=== PATIENT | female | born 1960 | race Caucasian/White ===

== ENCOUNTER 2017-02-24 15:53 | Emergency (ER) | payer MEDICARE ==
[2017-02-24 16:01] VITALS: BP 146/70
--- NOTE | 2017-02-24 16:32 | ED Physician Documentation ---
History of Present Illness - Stated complaint Stated Complaint: SOA - Chief complaint Chief Complaint: Resp - History obtained from History obtained from: Patient - History of Present Illness Timing: Chronic Pain level max: 0 Pain level now: 0 - Additonal information Additional information: states running out of her O2 at home and doesn't know how to obtain more. sees her PCP (Dr. Gerard) next week. Patient has no other complaints at this time Review of Systems Constitutional: denies: Fever, Chills Cardiac: denies: Chest pain / pressure Respiratory: denies: Cough, Hemoptysis GI: denies: Abdominal Pain, Nausea, Vomiting, Diarrhea Skin: denies: Rash Musculoskeletal: denies: Neck pain, Back pain Neurologic: denies: Headache PD PAST MEDICAL HISTORY - Past Medical History Past Medical History: Yes Cardiovascular: High cholesterol Respiratory: COPD, Emphysema Neuro: None Endocrine/Autoimmune: Type 2 diabetes : None HEENT: None Psych: Anxiety Musculoskeletal: Osteoarthritis, Scoliosis, Chronic back pain, Other Derm: Psoriasis - Past Surgical History Past Surgical History: Yes Ortho: 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 surgery /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: Hysterectomy - Present Medications Home Medications: Ambulatory Orders Medication Instructions Recorded Confirmed Atorvastatin Calcium 40 mg PO ONCEDAILY 07/24/13 02/24/17 Cyclobenzaprine [Flexeril] 10 mg PO TID 07/24/13 02/24/17 Gemfibrozil 600 mg PO BID 07/24/13 02/24/17 Hydrocodone/Acetaminophen [Vicodin 1 each PO TID 07/24/13 02/24/17 Hp 10-300 mg Tablet] Insulin Aspart [Novolog] 18 units TIDWM 07/24/13 02/24/17 Insulin Glargine [Lantus] 70 units HS 07/24/13 02/24/17 Lisinopril 10 mg PO ONCEDAILY 07/24/13 02/24/17 Morphine Sulfate [Ms Contin] 60 mg PO TID 07/24/13 02/24/17 [place]-3 Fatty Acids/Fish Oil [Fish 1 each PO TID 07/24/13 07/21/16 Oil 1,000 mg Capsule] Nabumetone 1,000 mg PO BID 05/13/15 02/24/17 metFORMIN [Glucophage] 1,000 mg PO BID 05/13/15 02/24/17 Sertraline [Zoloft] 50 mg PO QPM 02/29/16 02/24/17 Mupirocin 1 applic TP DAILY #15 oint...g. 07/21/16 02/24/17 Acitretin [Soriatane] 25 mg PO DAILY 02/24/17 02/24/17 Fluticasone/Salmeterol [Advair 1 puffs PO DAILY 02/24/17 02/24/17 250-50 Diskus] Insulin Aspart [NovoLOG] 20 units SQ DAILY 02/24/17 02/24/17 Insulin Glargine [Lantus Solostar] 70 units SQ DAILY 02/24/17 02/24/17 - Allergies Allergies/Adverse Reactions: Allergies Allergy/AdvReac Type Severity Reaction Status Date / Time methadone [Methadone] Allergy Severe increased Verified 02/24/17 16:00 heart rate adhesive tape Allergy Unknown Verified 02/24/17 16:00 - Social History Does the pt smoke?: Yes Smoking Status: Current some day smoker Does the pt drink ETOH?: No Does the pt have substance abuse?: No - Immunizations Immunizations: TDAP current <10years PD ED PE NORMAL - Vitals Vital signs reviewed: Yes - General General: Alert and oriented X 3, No acute distress - HEENT HEENT: Moist mucous membranes - Neck Neck: Supple, no meningeal sign - Cardiac Cardiac: RRR - Respiratory Respiratory: No respiratory distress, Other (Mild wheeze bilaterally) - Abdomen Abdomen: Soft, Non tender - Derm Derm: Warm and dry - Extremities Extremities: No calf tenderness / cord - Neuro Neuro: Alert and oriented X 3 - Psych Psych: Normal mood, Normal affect Results - Vitals Vitals: Vital Signs - 24 hr 02/24/17 02/24/17 02/24/17 15:58 17:00 17:49 Temperature 36.8 C Heart Rate 78 Respiratory 18 Rate Blood Pressure 146/70 H O2 Saturation 90 L 89 L 97 Oxygen O2 Source Room air Oxygen Flow Rate 2 PD MEDICAL DECISION MAKING - ED course Complexity details: considered differential, d/w patient ED course: Patient with no acute emergency medical condition at this time. Respiratory therapy, Atilio, was consulted and will help the patient obtain oxygen for home. She apparently has had proper pulmonary testing done approximately 1 year ago and does qualify for home O2. Patient counseled regarding signs and symptoms for which I believe and urgent re-evaluation would be necessary. Patient with good understanding of and agreement to plan and is comfortable going home at this time This document was made in part using voice recognition software. While efforts are made to proofread this document, sound alike and grammatical errors may occur. Departure - Departure Disposition: 01 Home, Self Care Clinical Impression: Hypoxia COPD (chronic obstructive pulmonary disease) Qualifiers: COPD type: unspecified COPD Qualified Code(s): J44.9 - Chronic obstructive pulmonary disease, unspecified Condition: Good Instructions: COPD Follow-Up: Yaw Gerard MD [Primary Care Provider] - Within 1 week Comments: Call [facility] and they can help you with your concentrator. Return if you worsen. Discharge Date/Time: 02/24/17 17:49
== END 2017-02-24 17:49 | disposition home or self-care (01) ==
LOC: ED 15:53
DX: J44.9 Chronic obstructive pulmonary disease, unspecified (principal); R09.02 Hypoxemia; F17.200 Nicotine dependence, unspecified, uncomplicated; E11.9 Type 2 diabetes mellitus without complications; Z79.4 Long term (current) use of insulin
CPT/HCPCS: 99282; 99283

== ENCOUNTER 2017-03-16 13:20 | Outpatient (CLI) | payer MEDICARE ==
[2017-03-16] MEDS ORDERED: ALBUTEROL NEB 2.5 MG/3 ML INH ONE (13:33)
== END 2017-03-16 13:21 | disposition home or self-care (01) ==
LOC: RT 13:20
PROVIDERS: ATTEND Internal Medicine
DX: J43.9 Emphysema, unspecified (principal)
CPT/HCPCS: 93005; 94060; J7613

== ENCOUNTER 2017-09-28 14:09 | Outpatient (CLI) | payer MEDICARE | END 2017-09-28 14:10 | disposition home or self-care (01) | LOC: DI 14:09 | PROVIDERS: ATTEND Internal Medicine | DX: Z53.9 Procedure and treatment not carried out, unspecified reason (principal) ==

== ENCOUNTER 2018-11-10 14:20 | Outpatient (CLI) | payer MEDICARE ==
--- NOTE | 2018-11-10 15:59 | XRAY Report ---
Reason: CHRONIC OBSTRUCTIVE PULMONARY DISEASE WITH EXACERB Procedure Date: 11/10/2018 Accession Number: [id number] / [id number] Procedure: XR - Chest 2 View X-Ray CPT Code: 98599 FULL RESULT: EXAM: CHEST RADIOGRAPHY EXAM DATE: 11/10/2018 03:37 PM. CLINICAL HISTORY: CHRONIC OBSTRUCTIVE PULMONARY DISEASE WITH EXACERB. COMPARISON: CHEST 2 VIEW PA/LAT 04/10/2016 1:22 PM. TECHNIQUE: 2 views. FINDINGS: Lungs/Pleura: There is bilateral interstitial prominence. No pleural effusion or pneumothorax. No consolidative process. Trachea is midline. Mediastinum: Heart size is normal. There is moderate atherosclerotic calcification of the aorta. Other: None. IMPRESSION: 1. No significant change. Bilateral interstitial prominence consistent with airways thickening or mild interstitial edema without change. No consolidative pneumonia. RADIA
== END 2018-11-10 14:21 | disposition home or self-care (01) ==
LOC: DI 14:20
PROVIDERS: ATTEND Nurse Practitioner Family
DX: J44.1 Chronic obstructive pulmonary disease with (acute) exacerbation (principal)
CPT/HCPCS: 71046

== ENCOUNTER 2018-11-20 15:44 | Outpatient (CLI) | payer MEDICARE | END 2018-11-20 15:45 | disposition critical access hospital (66) | LOC: EMS 15:44 | PROVIDERS: ATTEND Surgery | DX: R06.00 Dyspnea, unspecified (principal) | CPT/HCPCS: A0425; A0429 ==

== ENCOUNTER 2018-11-20 16:10 | Emergency (ER) | payer MEDICARE ==
[2018-11-20] MEDS ORDERED: AMOX/CLAV 875 MG/125 MG TABLET PO STA (17:10)
--- NOTE | 2018-11-20 17:13 | ED Physician Documentation ---
PD HPI URI - Stated complaint Stated Complaint: COUGH - Chief complaint Chief Complaint: Resp - History obtained from History obtained from: Patient - History of Present Illness Timing - onset: Other (She is been sick for about 2 weeks with slight shortness of breath and nasal congestion. She was seen in the office and a chest x-ray was done without acute disease and started on steroids which made her feel funny so she stopped them. Her main complaint at this point is sinus pressure or nasal drainage. No fevers.) Review of Systems Constitutional: reports: Fatigue. 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 : None HEENT: None Psych: Depression, Anxiety Musculoskeletal: Osteoarthritis, Scoliosis, Chronic back pain Derm: Psoriasis - Past Surgical History Past Surgical History: Yes Ortho: 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: Hysterectomy, Oophrectomy - Present Medications Home Medications: Ambulatory Orders Medication Instructions Recorded Confirmed Atorvastatin Calcium 20 mg PO ONCEDAILY 07/24/13 11/20/18 Cyclobenzaprine [Flexeril] 10 mg PO TID 07/24/13 11/20/18 Gemfibrozil 600 mg PO BID 07/24/13 11/20/18 Insulin Aspart [Novolog] 18 - 26 units PRN 07/24/13 07/27/18 Lisinopril 10 mg PO ONCEDAILY 07/24/13 11/20/18 [place]-3 Fatty Acids/Fish Oil [Fish 1 each PO TID 07/24/13 11/20/18 Oil 1,000 mg Capsule] Nabumetone 1,000 mg PO BID 05/13/15 11/20/18 Sertraline [Zoloft] 25 mg PO DAILY 02/29/16 11/20/18 Insulin Glargine [Lantus Solostar] 80 units SQ DAILY 02/24/17 11/20/18 Albuterol Sulf [Ventolin Hfa 1 - 2 puffs INH BID PRN 04/27/18 11/20/18 Inhaler] Ascorbic Acid [Vitamin C] 1,000 mg PO TID 04/27/18 11/20/18 Cholecalciferol (Vitamin D3) 1,000 units PO TID 04/27/18 11/20/18 [Vitamin D3] L-Lysine 500 mg PO BID 04/27/18 07/27/18 Magnesium Oxide [Magnesium] 500 mg PO BID 04/27/18 07/27/18 Metformin HCl [Glucophage] 1,000 mg PO BID 04/27/18 11/20/18 Morphine Sulfate [Ms Contin] 60 mg PO TID 04/27/18 11/20/18 Tumeric 1,000 mg PO DAILY 04/27/18 11/20/18 Vitamin E (Dl,Tocopheryl Acet) 400 units PO DAILY 04/27/18 11/20/18 [Vitamin E] Hydrocodone/Acetaminophen 1 each PO TID 07/27/18 11/20/18 [Hydrocodon-Acetaminophn 10-325] Acitretin [Soriatane] 25 mg DAILY 11/20/18 11/20/18 Amox/Clav 875/125 [Augmentin] 1 each PO Q12H #20 tablet 11/20/18 Mometasone Furoate [Nasonex] 1 spray NS BID #1 spray.pump 11/20/18 - Allergies Allergies/Adverse Reactions: Allergies Allergy/AdvReac Type Severity Reaction Status Date / Time methadone [Methadone] Allergy Severe increased Verified 11/20/18 16:24 heart rate adhesive tape Allergy Unknown Verified 11/20/18 16:24 - Social History Does the pt smoke?: Yes Smoking Status: Current some day smoker Does the pt drink ETOH?: No Does the pt have substance abuse?: No - Immunizations Immunizations are current?: Yes Immunizations: TDAP current <10years - POLST Patient has POLST: No PD ED PE NORMAL - Vitals Vital signs reviewed: Yes - General General: Alert and oriented X 3, No acute distress - HEENT HEENT: Other (Profuse clear rhinorrhea with mild maxillary sinus tenderness. Oropharynx normal. Lungs clear.) - Cardiac Cardiac: RRR, No murmur - Respiratory Respiratory: No respiratory distress, Clear bilaterally - Abdomen Abdomen: Non tender - Extremities Extremities: No edema, No calf tenderness / cord - Neuro Neuro: Alert and oriented X 3, Normal speech Results - Vitals Vitals: Vital Signs - 24 hr 11/20/18 16:19 Temperature 36.2 C L Heart Rate 102 H Respiratory 18 Rate Blood Pressure 169/65 H O2 Saturation 96 Oxygen O2 Source Room air Departure - Departure Disposition: 01 Home, Self Care Clinical Impression: Sinusitis Qualifiers: Sinusitis location: maxillary Chronicity: acute Recurrence: non-recurrent Qualified Code(s): J01.00 - Acute maxillary sinusitis, unspecified Diabetes Qualifiers: Diabetes mellitus type: type 2 Diabetes mellitus assisted insulin use: with assisted use Diabetes mellitus complication status: without complication Qualified Code(s): E11.9 - Type 2 diabetes mellitus without complications; 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 In the interim, return anytime if worse or if new symptoms develop. Your blood pressure was elevated today on check into the emergency department. This does not mean that you have hypertension, it is a common phenomenon to come to the emergency department and have elevated blood pressure. I recommend that you see your primary care physician within the week to have it rechecked when you are feeling better.
[2018-11-20 17:20] VITALS: BP 178/83
== END 2018-11-20 17:44 | disposition home or self-care (01) ==
LOC: EDUNIT# → ED 16:10
DX: J01.00 Acute maxillary sinusitis, unspecified (principal); R03.0 Elevated blood-pressure reading, without diagnosis of hypertension; E11.42 Type 2 diabetes mellitus with diabetic polyneuropathy; E78.00 Pure hypercholesterolemia, unspecified; Z79.4 Long term (current) use of insulin; F17.200 Nicotine dependence, unspecified, uncomplicated
CPT/HCPCS: 99283; A9270

== ENCOUNTER 2019-12-04 14:42 | Outpatient (CLI) | payer MEDICARE ==
--- NOTE | 2019-12-05 14:54 | XRAY Report ---
Reason: PAIN IN RIGHT SHOULDER, PARESTHESIA OF UPPER LIMB Procedure Date: 12/04/2019 Accession Number: [id number] / [id number] Procedure: XR - Shoulder 3 View RT CPT Code: Final Report FULL RESULT: EXAM: RIGHT SHOULDER RADIOGRAPHY EXAM DATE: 12/04/2019 03:29 PM. CLINICAL HISTORY: PAIN IN RIGHT SHOULDER, PARESTHESIA OF UPPER LIMB. COMPARISON: None. TECHNIQUE: 3 views. FINDINGS: Bones: Normal. No fracture or bone lesion. Joints: AC joint hypertrophy. Glenohumeral osteophyte without joint space narrowing. Soft tissues: The visualized hemithorax is unremarkable. No soft tissue swelling. IMPRESSION: Mild DJD RADIA
--- NOTE | 2019-12-05 14:54 | XRAY Report ---
Reason: PAIN IN RIGHT SHOULDER, PARESTHESIA OF UPPER LIMB Procedure Date: 12/04/2019 Accession Number: [id number] / [id number] Procedure: XR - Cervical Spine 2 View CPT Code: Final Report FULL RESULT: EXAM: CERVICAL SPINE RADIOGRAPHY EXAM DATE: 12/04/2019 03:30 PM. CLINICAL HISTORY: PAIN IN RIGHT SHOULDER, PARESTHESIA OF UPPER LIMB. COMPARISONS: None. TECHNIQUE: 3 views. FINDINGS: Patient is in flexion Alignment: Grade 1 anterolisthesis C3 on C4. Bones: The cervical vertebral bodies and posterior elements are well visualized from the skull base through C6-C7 No fractures or bone lesions. Disks: C3-C4, C4-C5, C5-C6, C6-C7 disk space narrowing Facets: Facet arthropathy mid to lower cervical spine. Soft Tissues: Normal. No prevertebral soft tissue swelling. The visualized lung apices are clear. IMPRESSION: 1. Grade 1 anterolisthesis of C3 on C4. 2. Moderate DJD. Visualization is through C6-C7 RADIA
== END 2019-12-04 14:43 | disposition home or self-care (01) ==
LOC: DI 14:42
PROVIDERS: ATTEND Nurse Practitioner Family
DX: M19.011 Primary osteoarthritis, right shoulder (principal); M50.31 Other cervical disc degeneration, high cervical region; M47.812 Spondylosis without myelopathy or radiculopathy, cervical region; M43.12 Spondylolisthesis, cervical region; L40.0 Psoriasis vulgaris
CPT/HCPCS: 36415; 72040; 80053; 83735; 84550; 85027

== ENCOUNTER 2019-12-04 15:27 | Outpatient (CLI) | payer MEDICARE ==
[2019-12-04 15:46] LABS: HGB - HEMOGLOBIN 12.5 g/dL (12.0-16.0); MEAN CORPUSCULAR HGB CONC 32.4 g/dL (32.0-36.0); MEAN CORPUSCULAR VOLUME 92.6 fL (81.0-99.0); MEAN PLATELET VOLUME 9.3 fL (7.9-10.8); RED BLOOD COUNT 4.17 10^6/uL (4.20-5.40); RED CELL DISTRIBUTION WIDTH 13.1 % (12.0-15.0); WHITE BLOOD COUNT 7.3 x10^3/uL (4.8-10.8)
[2019-12-04 15:58] LABS: ALBUMIN 3.8 g/dL (3.2-5.5); BILIRUBIN,TOTAL 0.9 mg/dL (0.2-1.0); CALCIUM 9.3 mg/dL (8.5-10.3); CREATININE 0.7 mg/dL (0.4-1.0); MAGNESIUM 1.8 mg/dL (1.7-2.8); TOTAL PROTEIN 7.6 g/dL (6.7-8.2); URIC ACID 6.4 mg/dL (2.6-7.2)
== END 2019-12-04 15:28 | disposition home or self-care (01) ==
LOC: LAB 15:27
PROVIDERS: ATTEND Dermatology
DX: L40.0 Psoriasis vulgaris (principal)
CPT/HCPCS: 36415; 80053; 83735; 84550; 85027

== ENCOUNTER 2020-03-13 17:10 | Outpatient (CLI) | payer MEDICARE | END 2020-03-13 17:11 | disposition critical access hospital (66) | LOC: EMS 17:10 | PROVIDERS: ATTEND Surgery | DX: M79.89 Other specified soft tissue disorders (principal); R45.1 Restlessness and agitation | CPT/HCPCS: A0425; A0429 ==

== ENCOUNTER 2020-04-22 12:40 | Outpatient (CLI) | payer MEDICARE ==
[2020-04-22 13:50] LABS: BASOPHILS # (AUTO) 0.1 10^3/uL (0.0-0.1); EOSINOPHILS # (AUTO) 0.2 10^3/uL (0.0-0.7); EOSINOPHILS % (AUTO) 2.5 %; HGB - HEMOGLOBIN 11.2 g/dL (12.0-16.0); LYMPHOCYTES # (AUTO) 2.3 10^3/uL (1.5-3.5); LYMPHOCYTES % (AUTO) 34.4 %; MEAN CORPUSCULAR HEMOGLOBIN 30.7 pg (27.0-31.0); MEAN CORPUSCULAR HGB CONC 32.7 g/dL (32.0-36.0); MEAN CORPUSCULAR VOLUME 93.7 fL (81.0-99.0); MONOCYTES # (AUTO) 0.5 10^3/uL (0.0-1.0); MONOCYTES % (AUTO) 7.4 %; NEUTROPHILS # (AUTO) 3.7 10^3/uL (1.5-6.6); NEUTROPHILS % (AUTO) 54.3 %; PLT - PLATELET COUNT 330 10^3/uL (130-450); RED BLOOD COUNT 3.65 10^6/uL (4.20-5.40); WHITE BLOOD COUNT 6.7 x10^3/uL (4.8-10.8)
[2020-04-22 14:08] LABS: ALBUMIN 3.6 g/dL (3.2-5.5); ALBUMIN/GLOBULIN RATIO 0.9 (1.0-2.2); ALKALINE PHOSPHATASE 67 IU/L (42-121); ALT ALANINE AMINOTRANSFERASE 13 IU/L (10-60); AST ASPARTATE AMINOTRANSFERASE 15 IU/L (10-42); BILIRUBIN,TOTAL 1.1 mg/dL (0.2-1.0); BUN - BLOOD UREA NITROGEN 19 mg/dL (6-20); CALCIUM 9.3 mg/dL (8.5-10.3); CARBON DIOXIDE - CO2 29 mmol/L (21-32); CHLORIDE 102 mmol/L (101-111); CHOL/HDL RATIO 6.8 (<4.4); CHOLESTEROL 211 mg/dL; CREATININE 0.9 mg/dL (0.4-1.0); GLUCOSE 69 mg/dL (70-100); HDL CHOLESTEROL 31 mg/dL; LDL CHOLESTEROL,CALCULATED 141 mg/dL; LDL/HDL RATIO 4.5 (<4.4); MAGNESIUM 1.9 mg/dL (1.7-2.8); SODIUM 140 mmol/L (135-145); TOTAL PROTEIN 7.6 g/dL (6.7-8.2); URIC ACID 6.9 mg/dL (2.6-7.2); VLDL CHOLESTEROL 39 mg/dL
[2020-04-22 14:26] LABS: HB2 TOTAL 11.8 g/dL; HEMOGLOBIN A1C 0.52 g/dL; HEMOGLOBIN A1C % 6.2 % (4.6-6.2)
[2020-04-22 14:42] LABS: CREATININE,URINE 82.3 mg/dL; MICROALBUM/CREATININE RATIO,UR 12.2 ug/mg (<30.0)
== END 2020-04-22 23:59 | disposition home or self-care (01) ==
LOC: LAB.R 12:40
PROVIDERS: ATTEND Internal Medicine
DX: L40.0 Psoriasis vulgaris (principal); E11.65 Type 2 diabetes mellitus with hyperglycemia
CPT/HCPCS: 80053; 80061; 82043; 82570; 83036; 83721; 83735; 84550; 85025

== ENCOUNTER 2021-03-14 14:29 | Emergency (ER) | payer MEDICARE ==
--- OUTSIDE RECORDS SUMMARY | 2021-03-14 14:33 | EXTERNAL MEDICAL SUMMARY RPT | Continuity of Care Document ---
:1960 Demographics Phone Unavailable Preferred Language Unknown Marital Status Unknown Sabianist Affiliation Unknown Race Unknown Ethnic Group Unknown Author Organization [place] Address [address] [phone] Phone Care Team Providers Name Role Phone MD Unavailable Unavailable Registrar Unavailable Unavailable Allergies Encounters Medications date description facility [id number] FLUTICASONE-SALMETEROL [facility] [place] [phone] MORPHINE SULFATE [facility] [place] [phone] METFORMIN HCL [facility] [place] [phone] HYDROCODONE-ACETAMINOPHEN [facility] [place] [phone] SULFAMETHOXAZOLE-TRIMETHOPRIM [facility] [place] [phone] INSULIN GLARGINE [facility] [place] [phone] CYCLOBENZAPRINE HCL [facility] [place] [phone] ALBUTEROL SULFATE [facility] [place] [phone] CINNAMON [facility] [place] [phone] INSULIN ASPART [facility] [place] [phone] CYCLOSPORINE [facility] [place] [phone] LISINOPRIL [facility] [place] [phone] SERTRALINE HCL [facility] [place] [phone] NABUMETONE [facility] [place] [phone] GEMFIBROZIL [facility] [place] [phone] GABAPENTIN [facility] [place] [phone] ACITRETIN [facility] [place] [phone] CYCLOSPORINE [facility] [place] [phone] GUAIFENESIN TABS [facility] [place] [phone] TURMERIC [facility] [place] [phone] LYSINE HCL [facility] [place] [phone] OMEGA-3 FATTY ACIDS CAPS [facility] [place] [phone] FERROUS SULFATE [facility] [place] [phone] SULFAMETHOXAZOLE-TRIMETHOPRIM [facility] [place] [phone] GABAPENTIN [facility] [place] [phone] CINNAMON [facility] [place] [phone] HYDROCODONE-ACETAMINOPHEN [facility] [place] [phone] METFORMIN HCL [facility] [place] [phone] CYCLOBENZAPRINE HCL [facility] [place] [phone] NABUMETONE [facility] [place] [phone] FLUTICASONE-SALMETEROL [facility] [place] [phone] ALBUTEROL SULFATE [facility] [place] [phone] INSULIN ASPART [facility] [place] [phone] LISINOPRIL [facility] [place] [phone] SERTRALINE HCL [facility] [place] [phone] GEMFIBROZIL [facility] & [facility] [place] [phone] MORPHINE SULFATE [facility] [place] [phone] ACITRETIN [facility] [place] [phone] INSULIN GLARGINE [facility] [place] [phone] LORATADINE [facility] [place] Problems date description facility [id number] No current problems or disability - [facility] unknown Anc[facility] Services [facility] [id number] Venous insufficiency (chronic) [facility] & (peripheral) [facility] [id number] Varicose veins of lower extremities [facility] with inflammation [facility] [id number] Type 2 diabetes mellitus without [facility] & complications [facility] [id number] Tobacco smoking status NHIS [facility] [place] [id number] Stasis dermatitis [facility] [place] [phone] Psoriasis, unspecified [facility] [place] [phone] Psoriasis [facility] Care & [facility] [place] [phone] Other psoriasis [facility] [phone] Diabetes mellitus [facility] [place] [phone] Current every day smoker [facility] [place] [phone] Cellulitis of right lower limb [facility] Results Vital Signs date measurement value source [id number] temperature_standard 98.8 F [id number] temperature_metric 37.11 C 20210313 respiration_rate 18 /min 20210313 heart_rate 97 /min 20210313 BP_systolic 142 mm[Hg] 20210313 BP_diastolic 60 mm[Hg]
--- NOTE | 2021-03-14 15:58 | ED Physician Documentation ---
PD HPI LOWER EXT INJURY - Stated complaint Stated Complaint: LEG SWELLING - Chief complaint Chief Complaint: Ext Problem - History obtained from History obtained from: Patient - Additional information Additional information: 60-year-old woman with history of tobacco abuse, diabetes presents with nonhealing leg wounds, right greater than left. She was recently on sulfa antibiotic for same but was inconsistent about taking them. She has had over a weeks worth of swelling and increased drainage especially of the right leg. No rest pain. She was on sulfa. 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 HEENT: None Psych: Depression, Anxiety Musculoskeletal: Osteoarthritis, Scoliosis, Chronic back pain Derm: Psoriasis - Past Surgical History Past Surgical History: Yes Ortho: 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, Oophrectomy - Present Medications Home Medications: Ambulatory Orders Medication Instructions Recorded Confirmed Atorvastatin Calcium 20 mg PO ONCEDAILY 07/24/13 03/14/21 Cyclobenzaprine [Flexeril] 10 mg PO TID 07/24/13 03/14/21 Insulin Aspart [Novolog] 18 - 26 units SQ DAILY 07/24/13 03/14/21 Lisinopril 10 mg PO ONCEDAILY 07/24/13 03/14/21 [place]-3 Fatty Acids/Fish Oil [Fish 1 each PO TID 07/24/13 03/14/21 Oil 1,000 mg Capsule] gemfibroziL [Gemfibrozil] 600 mg PO BID 07/24/13 03/14/21 Nabumetone 1,000 mg PO BID 05/13/15 03/14/21 Sertraline [Zoloft] 25 mg PO DAILY 02/29/16 03/14/21 Insulin Glargine [Lantus Solostar] 45 units SQ DAILY 02/24/17 03/14/21 Albuterol Sulf [Ventolin Hfa 1 - 2 puffs INH BID PRN 04/27/18 03/14/21 Inhaler] Ascorbic Acid [Vitamin C] 1,000 mg PO TID 04/27/18 03/14/21 Cholecalciferol (Vitamin D3) 1,000 units PO DAILY 04/27/18 03/14/21 [Vitamin D3] L-Lysine 500 mg PO BID 04/27/18 03/14/21 Magnesium Oxide [Magnesium] 500 mg PO DAILY 04/27/18 03/14/21 Metformin HCl [Glucophage] 1,000 mg PO BID 04/27/18 03/14/21 Morphine Sulfate [Ms Contin] 60 mg PO TID 04/27/18 03/14/21 Tumeric 1,000 mg PO DAILY 04/27/18 03/14/21 Vitamin E (Dl,Tocopheryl Acet) 400 units PO DAILY 04/27/18 03/14/21 [Vitamin E] Hydrocodone/Acetaminophen 1 each PO TID 07/27/18 03/14/21 [Hydrocodon-Acetaminophn 10-325] Acitretin [Soriatane] 25 mg PO DAILY 11/20/18 03/14/21 Mometasone Furoate [Nasonex] 1 spray NS BID #1 spray.pump 11/20/18 03/14/21 Ferrous Sulfate 325 mg PO DAILY #30 tablet 03/13/20 03/14/21 Gabapentin 100 mg PO QPM #30 capsule 03/13/20 03/14/21 Vits A and D/White Pet/Lanolin [A 1 applic TOP DAILY #113 oint...g. 03/13/20 03/14/21 and D Ointment] clindamycin HCL [Cleocin HCl] 300 mg PO QID #28 cap 03/14/21 - Allergies Allergies/Adverse Reactions: Allergies Allergy/AdvReac Type Severity Reaction Status Date / Time methadone [Methadone] Allergy Severe increased Verified 03/14/21 18:22 heart rate adhesive tape Allergy Unknown Verified 03/14/21 18:22 - Social History Does the pt smoke?: Yes Smoking Status: Current every day smoker Does the pt drink ETOH?: No Does the pt have substance abuse?: No - Immunizations Immunizations are current?: Yes Immunizations: TDAP current <10years - POLST Patient has POLST: No PD ED PE NORMAL - Vitals Vital signs reviewed: Yes - General General: Alert and oriented X 3, No acute distress - HEENT HEENT: PERRL, EOMI - Neck Neck: Supple, no meningeal sign, No bony TTP - Cardiac Cardiac: RRR, No murmur - Respiratory Respiratory: No respiratory distress, Clear bilaterally - Abdomen Abdomen: Normal bowel sounds, Soft, Non tender - Back Back: No CVA TTP, No spinal TTP - Derm Derm: Normal color, Warm and dry - Extremities Extremities: Other (Severe venous stasis changes of both legs with oozing wounds of the anterior right gardner. Feet are warm and seem well perfused but pedal pu lses are not palpable) - Neuro Neuro: Alert and oriented X 3, Normal speech Results - Vitals Vitals: Vital Signs - 24 hr 03/14/21 03/14/21 03/14/21 14:33 16:59 19:14 Temperature 36.7 C 36.8 C Heart Rate 112 H 97 99 Respiratory 18 16 16 Rate Blood Pressure 170/50 H 113/58 L 155/66 H O2 Saturation 94 96 93 Oxygen O2 Source Room air - Labs Labs: Laboratory Tests 03/14/21 03/14/21 16:06 16:06 WBC 7.3 RBC 3.97 L Hgb 12.1 Hct 36.1 L MCV 90.9 MCH 30.5 MCHC 33.5 RDW 13.2 Plt Count 317 MPV 8.9 Neut # (Auto) Not Reportable Lymph # (Auto) Not Reportable [place] # (Auto) Not Reportable Eos # (Auto) Not Reportable Baso # (Auto) Not Reportable Absolute Nucleated RBC Not Reportable Total Counted 100 Band Neuts % (Manual) 1 Reactive Lymphs % (Man) 2 Abnorm Lymph % (Manual) 0 Nucleated RBC % Not Reportable Neutrophils # (Manual) 4.7 Lymphocytes # (Manual) 2.2 Monocytes # (Manual) 0.3 Eosinophils # (Manual) 0.1 Basophils # (Manual) 0.0 Differential Comment MANUAL DIFFERENTIAL WBC Morphology NORMAL APPEARANCE Platelet Estimate NORMAL (130-450,000) Platelet Morphology NORMAL APPEARANCE RBC Morph Micro Appear NORMAL APPEARANCE Sodium 141 Potassium 4.0 Chloride 100 L Carbon Dioxide 28 Anion Gap 13.0 BUN 21 H Creatinine 1.0 Estimated GFR (MDRD) 56 L Glucose 166 H Calcium 9.1 PD MEDICAL DECISION MAKING - ED course ED course: 60-year-old woman with poorly healing cellulitis but also with venous stasis changes. She has multiple risk factors for peripheral vascular disease and ultrasound was done showing severe stenosis of the superficial femoral hemorrhage arteries bilaterally. An email was placed to her physician, Dr. Gerard to bring him in the loop that she will need close vascular surgery follow-up. There is no evidence of occlusion or rest pain so does not need evaluation tonight though. Advised to start baby aspirin a day and counseled on the importance of quitting tobacco use. Departure - Departure Disposition: Home, Self Care Clinical Impression: Cellulitis, PAD (peripheral artery disease) Condition: Good Record reviewed to determine appropriate education?: Yes Instructions: ED Infec Skin Cellulitis, ED PVD Prescriptions: clindamycin HCL [Cleocin HCl] 300 mg PO QID #28 cap Comments: No evidence of severe infection based on the blood work. That said you do have significant blockages in the arteries of both legs. They are not completely blocked so do not need to be managed primarily tonight, that said you do need to talk with your primary care physician about a referral to a vascular surgeon for evaluation and potential revascularization. Unfortunately without good blood flow of the legs, these type of sores may not heal well. I am starting a different antibiotic which will hopefully be helpful though. It would be ideal if you can stop smoking is that significantly increases your progression of the vascular disease in your legs. Follow-up with your doctor on Wednesday to discuss. Discharge Date/Time: 03/14/21 19:22
[2021-03-14 16:14] LABS: BASOPHILS % (AUTO) 0.7 %; EOSINOPHILS % (AUTO) 2.2 %; HCT - HEMATOCRIT 36.1 % (37.0-47.0); HGB - HEMOGLOBIN 12.1 g/dL (12.0-16.0); MEAN CORPUSCULAR HEMOGLOBIN 30.5 pg (27.0-31.0); MEAN CORPUSCULAR HGB CONC 33.5 g/dL (32.0-36.0); MEAN CORPUSCULAR VOLUME 90.9 fL (81.0-99.0); MEAN PLATELET VOLUME 8.9 fL (7.9-10.8); MONOCYTES % (AUTO) 9.5 %; NEUTROPHILS % (AUTO) 60.1 %; PLT - PLATELET COUNT 317 10^3/uL (130-450); RED BLOOD COUNT 3.97 10^6/uL (4.20-5.40); RED CELL DISTRIBUTION WIDTH 13.2 % (12.0-15.0); WHITE BLOOD COUNT 7.3 x10^3/uL (4.8-10.8)
[2021-03-14 16:18] LABS: ABNORMAL LYMPHS % (MANUAL) 0 %
[2021-03-14 16:24] LABS: CALCIUM 9.1 mg/dL (8.5-10.3)
--- OUTSIDE RECORDS SUMMARY | 2021-03-14 16:39 | EXTERNAL MEDICAL SUMMARY RPT | Continuity of Care Document ---
:1960 Demographics Phone Unavailable Preferred Language Unknown Marital Status Unknown Gnosticism Affiliation Unknown Race Unknown Ethnic Group Unknown Author Organization [facility] Address [address] [phone] Phone Care Team Providers Name Role Phone MD Unavailable Unavailable Registrar Unavailable Unavailable Allergies Encounters Medications date description facility [id number] FLUTICASONE-SALMETEROL [facility] [place] [phone] MORPHINE SULFATE [facility] [place] [phone] METFORMIN HCL [facility] [place] [phone] HYDROCODONE-ACETAMINOPHEN [facility] [place] [phone] SULFAMETHOXAZOLE-TRIMETHOPRIM [facility] [place] [phone] INSULIN GLARGINE [facility] [place] [phone] CYCLOBENZAPRINE HCL [facility] [place] [phone] ALBUTEROL SULFATE [facility] [place] [phone] CIN[place]MON [facility] [place] [phone] INSULIN ASPART [facility] [place] [phone] CYCLOSPORINE [facility] [place] [phone] LISINOPRIL [facility] [place] [phone] SERTRALINE HCL [facility] [place] [phone] NABUMETONE [facility] [place] [phone] GEMFIBROZIL [facility] [place] [phone] GABAPENTIN [facility] [place] [phone] ACITRETIN [facility] [place] [phone] CYCLOSPORINE [facility] [place] [phone] GUAIFENESIN TABS [facility] [place] [phone] TURMERIC [facility] [place] [phone] LYSINE HCL [facility] [place] [phone] O[place]-3 FATTY ACIDS CAPS [facility] [place] [phone] FERROUS SULFATE [facility] [place] [phone] SULFAMETHOXAZOLE-TRIMETHOPRIM [facility] [place] [id number] GABAPENTIN [facility] [place] [phone] CINNAMON [facility] [place] [phone] HYDROCODONE-ACETAMINOPHEN [facility] [place] [phone] METFORMIN HCL [facility] [place] [phone] CYCLOBENZAPRINE HCL [facility] [place] [phone] NABUMETONE [facility] [place] [phone] FLUTICASONE-SALMETEROL [facility] [place] [phone] ALBUTEROL SULFATE [facility] [place] [phone] INSULIN ASPART [facility] [place] [phone] LISINOPRIL [facility] [place] [phone] SERTRALINE HCL [facility] [place] [phone] GEMFIBROZIL [facility] & [facility] [place] [phone] MORPHINE SULFATE [facility] [place] [phone] ACITRETIN [facility] [place] [phone] INSULIN GLARGINE [facility] [place] [phone] LORATADINE [facility] [place] Problems date [...] Ancillary Services [facility] [phone] Psoriasis [facility] [place] [phone] Other psoriasis [facility] [place] [phone] Diabetes mellitus [facility] [place] [phone] Current every day smoker [facility] [place] [phone] Cellulitis of right lower limb [facility] [place] Results Vital Signs date measurement value source [id number] temperature_standard 98.8 F [id number] temperature_metric 37.11 C 20210313 respiration_rate 18 /min 20210313 heart_rate 97 /min [id number] BP_systolic 142 mm[Hg] 20210313 BP_diastolic 60 mm[Hg]
[2021-03-14 17:01] LABS: BAND NEUTROPHILS % (MANUAL) 1 %; EOSINOPHILS # (MANUAL) 0.1 10^3/uL (0-0.7); LYMPHOCYTES # (MANUAL) 2.2 10^3/uL (1.5-3.5); LYMPHOCYTES % (MANUAL) 28 %; MONOCYTES # (MANUAL) 0.3 10^3/uL (0.0-1.0); NEUTROPHILS # (MANUAL) 4.7 10^3/uL (1.5-6.6); PLATELET ESTIMATE, MANUAL NORMAL (130-450,000) (NORMAL); PLATELET MORPHOLOGY NORMAL APPEARANCE (NORMAL); RBC MORPHOLOGY (MULTIPLE) NORMAL APPEARANCE (NORMAL); REACTIVE LYMPHS % (MANUAL) 2 %; WBC MORPHOLOGY (MULTIPLE) NORMAL APPEARANCE (NORMAL)
[2021-03-14 17:02] LABS: DIFFERENTIAL COMMENT MANUAL DIFFERENTIAL
[2021-03-14] MEDS ORDERED: CLINDAMYCIN 150 MG CAPSULE PO STA (18:34)
--- NOTE | 2021-03-14 18:59 | Ultrasound Report ---
PROCEDURE: Duplex Lwr Ext Arterial Bilat INDICATIONS: Nonhealing leg wound TECHNIQUE: Color and pulse Doppler interrogation was performed of both lower extremity arterial systems, with im age documentation. COMPARISON: None FINDINGS: Right lower extremity: Common femoral artery: 134.5 cm/sec, with monophasic flow. Deep femoral artery: 140.5 cm/sec, with monophasic flow. Proximal superficial femoral artery: 120.7 cm/sec, with monophasic flow. Mid superficial femoral artery: 402 cm/sec, with monophasic flow. Distal superficial femoral artery: 123.3 cm/sec, with monophasic flow. Popliteal artery: 121.1 cm/sec, with monophasic flow. Posterior tibial artery: 159 cm/sec, with monophasic flow. Anterior tibial artery/dorsalis pedis: 95.8/43.4 cm/sec, with monophasic flow. [place]-scale imaging description: Calcified shadowing plaque present throughout. High-grade stenosis i n the SFA on the right. Left lower extremity: Common femoral artery: 184.4 cm/sec, with monophasic flow. Deep femoral artery: 175 cm/sec, with monophasic flow. Proximal superficial femoral artery: 148.4 cm/sec, with monophasic flow. Mid superficial femoral artery: 413 cm/sec, with monophasic flow. Remainder the left lower artery vasculature was not evaluated due to patient unable to tolerate imagi ng. IMPRESSION: Severe critical stenosis of the superficial femoral arteries bilaterally within the mid segments, elva ocities exceeding 400 cm/s bilaterally at these locations. Overall severe diffuse atherosclerotic disease throughout the lower extremity circulation. Reviewed by: Germán Lanier MD on 03/14/2021 6:58 PM PDT Approved by: Germán Lanier MD on 03/14/2021 6:58 PM PDT Station ID: [id number]
[2021-03-14 19:15] VITALS: BP 155/66
== END 2021-03-14 19:22 | disposition home or self-care (01) ==
LOC: ED 14:29
DX: L03.115 Cellulitis of right lower limb (principal); E11.51 Type 2 diabetes mellitus with diabetic peripheral angiopathy without gangrene; I70.203 Unspecified atherosclerosis of native arteries of extremities, bilateral legs; I87.8 Other specified disorders of veins; E11.42 Type 2 diabetes mellitus with diabetic polyneuropathy; Z79.4 Long term (current) use of insulin; J43.9 Emphysema, unspecified; F17.200 Nicotine dependence, unspecified, uncomplicated
CPT/HCPCS: 36415; 80048; 85025; 93925; 99284; A9270

== ENCOUNTER 2021-04-27 10:24 | Outpatient (CLI) | payer MEDICARE | END 2021-04-27 10:25 | disposition critical access hospital (66) | LOC: EMS 10:24 | DX: M79.606 Pain in leg, unspecified (principal) | CPT/HCPCS: A0425; A0429 ==

== ENCOUNTER 2021-04-27 10:51 | Emergency (ER) | payer MEDICARE ==
--- NOTE | 2021-04-27 11:24 | ED Physician Documentation ---
PD HPI SKIN - Stated complaint Stated Complaint: BILAT LEG WOUND - Chief complaint Chief Complaint: Ext Problem - History obtained from History obtained from: Patient - History of Present Illness Timing - onset: How many days ago (has had increased edema and redness both ankles and lower legs for days to a week or so, with chronic psoriatic scaling chronically. Has had cellulitic infections in the past, with Rx antibiotics about 2 months ago, per patient.) Timing - duration: Days Timing - details: Gradual onset Location: RLE, LLE Quality / character: Painful, Discolored (redness with swelling around ankles and lower legs, with superficial ulcerations in patches. No current purulent drainage.), Swelling, Draining. No: Vesicular Associated symptoms: No: Fever, Myalgias, Headache, N/V/D Contributing factors: Other (chronic skin dryness and peeling, scaling in both lower legs/ankles. Some on arms at times, mostly just lower legs.) Similar symptoms before: Diagnosis (psoriatic skin lesions with cellulitis.) Recently seen: Not recently seen (has appt with PCP in 2 days and initial appt Wound Care clinic in 4 days.) Review of Systems Constitutional: reports: Myalgias. denies: Fever, Chills Nose: denies: Rhinorrhea / runny nose, Congestion Throat: denies: Sore throat Respiratory: denies: Cough GI: denies: Abdominal Pain, Nausea, Vomiting, Diarrhea Skin: reports: Rash (just lower legs/ankles.), Lesions Neurologic: reports: Generalized weakness. denies: Focal weakness, Numbness, Headache PD PAST MEDICAL HISTORY - Past Medical History Past Medical History: Yes Cardiovascular: High cholesterol Respiratory: Asthma, COPD, Emphysema Neuro: Peripheral neuropathy Endocrine/Autoimmune: Type 2 diabetes GI: None BULL RIDER: None : None HEENT: None Psych: Depression, Anxiety Musculoskeletal: Osteoarthritis, Scoliosis, Chronic back pain Derm: Psoriasis - Past Surgical History Past Surgical History: Yes Ortho: 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 surgery /BULL RIDER: Hysterectomy, Oophrectomy - Present Medications Home Medications: Ambulatory Orders Medication Instructions Recorded Confirmed Atorvastatin Calcium 20 mg PO ONCEDAILY 07/24/13 04/27/21 Cyclobenzaprine [Flexeril] 10 mg PO TID 07/24/13 04/27/21 Insulin Aspart [Novolog] 18 - 26 units SQ DAILY 07/24/13 04/27/21 Lisinopril 10 mg PO ONCEDAILY 07/24/13 04/27/21 [place]-3 Fatty Acids/Fish Oil [Fish 1 each PO TID 07/24/13 04/27/21 Oil 1,000 mg Capsule] gemfibroziL [Gemfibrozil] 600 mg PO BID 07/24/13 04/27/21 Nabumetone 1,000 mg PO BID 05/13/15 04/27/21 Sertraline [Zoloft] 25 mg PO DAILY 02/29/16 04/27/21 Insulin Glargine [Lantus Solostar] 45 units SQ DAILY 02/24/17 04/27/21 Albuterol Sulf [Ventolin Hfa 1 - 2 puffs INH BID PRN 04/27/18 04/27/21 Inhaler] Ascorbic Acid [Vitamin C] 1,000 mg PO TID 04/27/18 04/27/21 Cholecalciferol (Vitamin D3) 1,000 units PO DAILY 04/27/18 04/27/21 [Vitamin D3] L-Lysine 500 mg PO BID 04/27/18 04/27/21 Magnesium Oxide [Magnesium] 500 mg PO DAILY 04/27/18 04/27/21 Metformin HCl [Glucophage] 1,000 mg PO BID 04/27/18 04/27/21 Morphine Sulfate [Ms Contin] 60 mg PO TID 04/27/18 04/27/21 Tumeric 1,000 mg PO DAILY 04/27/18 04/27/21 Vitamin E (Dl,Tocopheryl Acet) 400 units PO DAILY 04/27/18 04/27/21 [Vitamin E] Hydrocodone/Acetaminophen 1 each PO TID 07/27/18 04/27/21 [Hydrocodon-Acetaminophn 10-325] Acitretin [Soriatane] 25 mg PO DAILY 11/20/18 04/27/21 Ferrous Sulfate 325 mg PO DAILY #30 tablet 03/13/20 04/27/21 Gabapentin 100 mg PO QPM #30 capsule 03/13/20 04/27/21 Vits A and D/White Pet/Lanolin [A 1 applic TOP DAILY #113 oint...g. 03/13/20 04/27/21 and D Ointment] HYDROcodone/ACET 10/325 [[place] 10 1 tablet PO Q6H PRN #10 tablet 04/27/21 mg/325 mg] Mupirocin Calcium [Mupirocin] 1 applic TP TID #15 gm 04/27/21 Vits A and D/White Pet/Lanolin 1 applic TP BID #425 gm 04/27/21 [Vitamin A and D Ointment] cephALEXin [Keflex] 500 mg PO QID 5 Days #20 cap 04/27/21 - Allergies Allergies/Adverse Reactions: Allergies Allergy/AdvReac Type Severity Reaction Status Date / Time methadone [Methadone] Allergy Severe increased Verified 04/27/21 10:55 heart rate adhesive tape Allergy Unknown Verified 04/27/21 10:55 - Social History Does the pt smoke?: Yes Smoking Status: Current every day smoker Does the pt drink ETOH?: No Does the pt have substance abuse?: No - Immunizations Immunizations are current?: Yes Immunizations: TDAP current <10years - POLST Patient has POLST: No PD ED PE NORMAL - Vitals Vital signs reviewed: Yes - General General: Alert and oriented X 3, No acute distress, Well developed/nourished - Neck Neck: Supple, no meningeal sign, No adenopathy - Cardiac Cardiac: RRR, No murmur - Respiratory Respiratory: Clear bilaterally - Abdomen Abdomen: Soft, Non tender - Derm Derm: Normal color, Warm and dry - Extremities Extremities: Other (both lower legs from mid lower legs down to ankles and dorsal feet, around toes, with redness and swelling. Areas of superficial ulcerations. No fluid collections nor current drainage. Normal cap refill in toes. Generally some hyperkeratosis, dried skin with loose flakes of skin diffusely.) - Neuro Neuro: Alert and oriented X 3, No motor deficit, Normal speech Results - Vitals Vitals: Vital Signs - 24 hr 04/27/21 04/27/21 04/27/21 10:55 11:08 12:27 Temperature 37.1 C 36.4 C L Heart Rate 96 95 100 Respiratory 18 18 18 Rate Blood Pressure 118/56 L 121/63 150/106 H O2 Saturation 94 97 100 04/27/21 14:27 Temperature Heart Rate 100 Respiratory 16 Rate Blood Pressure 101/78 O2 Saturation 98 Oxygen O2 Source Room air PD MEDICAL DECISION MAKING - ED course Complexity details: reviewed old records (interestingly she did not have an QUANG though is on chronic pain meds. [employer] review of outside Rx shows regular Morphine and Hydrocodone from her PCP and not others. Latest Rx should have been available 2 days ago per dates. ), re-evaluated patient (improved pain with IM med. Eval of Pharmacy update shows Rxs should be filled and available at [facility]. Will convey this to her. ), considered differential (Legs with edema and chronic psoriasis and edema. Has increased pain and redness both legs for days/week now. Also increased pain due to problem with recent Rx of her chronic pain meds (she says went to different pharmacy and had to get it straightened out back to [facility]; has to check with pharmacy), d/w patient Departure - Departure Disposition: Home, Self Care Clinical Impression: Leg pain Qualifiers: Laterality: bilateral Qualified Code(s): M79.604 - Pain in right leg Lower extremity cellulitis Qualifiers: Laterality: unspecified laterality Qualified Code(s): L03.119 - Cellulitis of unspecified part of limb Condition: Stable Record reviewed to determine appropriate education?: Yes Instructions: ED Infec Skin Cellulitis Prescriptions: cephALEXin [Keflex] 500 mg PO QID 5 Days #20 cap Mupirocin Calcium [Mupirocin] 1 applic TP TID #15 gm HYDROcodone/ACET 10/325 [[place] 10 mg/325 mg] 1 tablet PO Q6H PRN #10 tablet PRN Reason: Pain Vits A and D/White Pet/Lanolin [Vitamin A and D Ointment] 1 applic TP BID #425 gm Comments: If you are able to, try to cleanse your lower legs with soap and water once or twice daily and apply mupirocin topical antibiotic to the open sores areas. A&E ointment to the remainder of the dry skin areas. It does look like some infection around some of the sores so take the cephalexin 4 times a day as directed over the next 5 days. Contact your primary care regarding your pain medication issues with the pharmacy. Follow-up with your primary care Wednesday as planned and with the wound care clinic as planned. Return if worsening. Discharge Date/Time: 04/27/21 14:29
[2021-04-27] MEDS ORDERED: LANOLIN 7 GM OINTMENT TOP STA (13:05)
[2021-04-27] MEDS ORDERED: MUPIROCIN 2% OINT 1 GM TOP STA (13:05)
[2021-04-27] MEDS ORDERED: HYDROmorphone 2 MG/ML VIAL IM STA (13:09)
[2021-04-27] MEDS ORDERED: cephALEXin 250 MG CAPSULE PO STA (13:10)
[2021-04-27] MEDS ORDERED: KETOROLAC 15 MG/ML VIAL IM STA (13:10)
[2021-04-27] MEDS ORDERED: GABAPENTIN 100 MG CAPSULE PO STA (13:11)
[2021-04-27 14:28] VITALS: BP 101/78
== END 2021-04-27 14:29 | disposition home or self-care (01) ==
LOC: EDUNIT# → ED 10:51
DX: L03.116 Cellulitis of left lower limb (principal); L03.115 Cellulitis of right lower limb; M79.604 Pain in right leg; M79.605 Pain in left leg; L40.9 Psoriasis, unspecified; E11.622 Type 2 diabetes mellitus with other skin ulcer; L97.929 Non-pressure chronic ulcer of unspecified part of left lower leg with unspecified severity; L97.919 Non-pressure chronic ulcer of unspecified part of right lower leg with unspecified severity; E11.42 Type 2 diabetes mellitus with diabetic polyneuropathy; Z79.4 Long term (current) use of insulin; F17.200 Nicotine dependence, unspecified, uncomplicated
CPT/HCPCS: 96372; 99284; A9270; J1170

== ENCOUNTER 2021-09-22 11:11 | Outpatient (CLI) | payer MEDICARE ==
--- NOTE | 2021-09-23 15:25 | Ultrasound Report ---
PROCEDURE: Ankle Brachial Index INDICATIONS: ATHERSCLEROSIS OF BARROW ARTERY BOTH LOWER EXREMIT TECHNIQUE: Ankle-brachial indices were obtained bilaterally and recorded. COMPARISONS: Duplex ultrasound of lower extremity arteries, 09/22/2021 and 03/14/2021. FINDINGS: Right ankle brachial index (JAMES): 0.71 Left ankle brachial index (JAMES): 0.85 Healing potential: Ankle pressures >55 mm Hg in non-diabetics and >80 mm Hg in diabetics are likely to achieve primary h ealing of ischemic foot ulcers. Toe pressures >30 mm Hg are likely to achieve primary healing of ischemic foot ulcers, toe or transme tatarsal amputations. IMPRESSION: 1. Right JAMES 0.71 indicating moderate peripheral arterial disease. 2. Left JAMES 0.85 indicating mild peripheral arterial disease. Reviewed by: Chelsea Donato MD on 09/23/2021 3:23 PM PST Approved by: Chelsea Donato MD on 09/23/2021 3:23 PM PST Station ID: [id number]
--- NOTE | 2021-09-23 17:16 | Ultrasound Report ---
PROCEDURE: Duplex Lwr Ext Arterial Bilat INDICATIONS: ATHERSCLEROSIS OF [place] ARTERY BOTH LOWER EXREMIT TECHNIQUE: Color and pulse Doppler interrogation was performed of both lower extremity arterial systems, with im age documentation. COMPARISON: 03/14/2021 FINDINGS: Right lower extremity: JAMES: 0.71 Common femoral artery: 146 cm/sec, with biphasic flow. Deep femoral artery: 144 cm/sec, with biphasic flow. Proximal superficial femoral artery: 113 cm/sec, with monophasic flow. Mid superficial femoral artery: 533 cm/sec, with monophasic flow. Distal superficial femoral artery: 122 cm/sec, with monophasic flow. Popliteal artery: 91 cm/sec, with monophasic flow. Posterior tibial artery: 75 cm/sec, with monophasic flow. Anterior tibial artery/dorsalis pedis: 103/77 cm/sec, with monophasic flow. [place]-scale imaging description: Diffuse plaque throughout the left lower extremity Left lower extremity: JAMES: 0.85 Common femoral artery: 201 cm/sec, with biphasic flow. Deep femoral artery: 194 cm/sec, with biphasic flow. Proximal superficial femoral artery: 240 cm/sec, with biphasic flow. Mid superficial femoral artery: 246 cm/sec, with monophasic flow. Distal superficial femoral artery: 138 cm/sec, with monophasic flow. Popliteal artery: 119 cm/sec, with monophasic flow. Posterior tibial artery: 108 cm/sec, with monophasic flow. The distal left posterior tibial artery is not visualized and may be occluded. Anterior tibial artery/dorsalis pedis: 161 cm/sec, with monophasic flow. [place]-scale imaging description: Diffuse plaque throughout the left lower extremity. IMPRESSION: 1. High-grade stenosis of the right proximal to mid SFA. 2. Diffuse atherosclerotic disease throughout both lower extremities. 3. Consider CT angiogram or MR angiogram for further evaluation. Reviewed by: Pratik Willis on 09/23/2021 5:14 PM PST Approved by: Pratik Willsi on 09/23/2021 5:14 PM PST Station ID: [id number]
== END 2021-09-22 11:12 | disposition home or self-care (01) ==
LOC: DI 11:11
DX: I70.213 Atherosclerosis of native arteries of extremities with intermittent claudication, bilateral legs (principal)
CPT/HCPCS: 93922; 93925

== ENCOUNTER 2021-10-28 21:09 | Outpatient (CLI) | payer MEDICARE, MEDICAID | END 2021-10-28 21:10 | disposition critical access hospital (66) | LOC: EMS 21:09 | DX: R10.30 Lower abdominal pain, unspecified (principal); R50.9 Fever, unspecified; R41.0 Disorientation, unspecified | CPT/HCPCS: A0425; A0427 ==

== ENCOUNTER 2021-10-28 21:28 | Inpatient (IN) | payer MEDICARE, MEDICAID ==
--- NOTE | 2021-10-28 21:28 | ED Physician Documentation ---
History of Present Illness - Stated complaint Stated Complaint: ABD PX/FEVER/CHILLS - History obtained from History obtained from: Patient (very limited contribution to HPI/ROS due to AMS), EMS - History of Present Illness Timing: How many days ago (4) - Additonal information Additional information: BIBA. Patient c/o 4 days of fever and abdominal pain. She is noted by EMS to be confused and she remains confused and drowsy on this HPI, significantly limiting her ability to contribute to HPI/ROS. It is unclear if she has been taking her temperature at home. She indicates her abdominal pain is predominantly left- sided. Temporal temperature taken by EMS was 99.2. EMS noted 90% room air pulse ox, improved to 94% with 4 liters without improvement in mentation and they increased supplemental oxygen to 6 liters with 96% pulse ox. On arrival, when taken off of supplemental oxygen, she rapidly decreases to 85% room air with good pleth (I was in the room when this occurred). FSBS by EMS was 342. Patient tells me she does not use oxygen at home. received 600 cc NS en route, has been tachycardic to 118 for EMS but normotensive (106 SBP) Review of Systems Unable to obtain: AMS (AMS severely limits HPI/ROS; she provides answers as noted below but questionable reliability) Constitutional: reports: Fever Cardiac: reports: Pedal edema (chronic). denies: Chest pain / pressure Respiratory: denies: Dyspnea, Cough GI: reports: Abdominal Pain PD PAST MEDICAL HISTORY - Present Medications Home Medications: Ambulatory Orders Medication Instructions Recorded Confirmed Atorvastatin Calcium 20 mg PO ONCEDAILY 07/24/13 04/27/21 Cyclobenzaprine [Flexeril] 10 mg PO TID 07/24/13 04/27/21 Insulin Aspart [Novolog] 18 - 26 units SQ DAILY 07/24/13 04/27/21 Lisinopril 10 mg PO ONCEDAILY 07/24/13 04/27/21 Huger-3 Fatty Acids/Fish Oil [Fish 1 each PO TID 07/24/13 04/27/21 Oil 1,000 mg Capsule] gemfibroziL [Gemfibrozil] 600 mg PO BID 07/24/13 04/27/21 Nabumetone 1,000 mg PO BID 05/13/15 04/27/21 Sertraline [Zoloft] 25 mg PO DAILY 02/29/16 04/27/21 Insulin Glargine [Lantus Solostar] 45 units SQ DAILY 02/24/17 04/27/21 Albuterol Sulf [Ventolin Hfa 1 - 2 puffs INH BID PRN 04/27/18 04/27/21 Inhaler] Ascorbic Acid [Vitamin C] 1,000 mg PO TID 04/27/18 04/27/21 Cholecalciferol (Vitamin D3) 1,000 units PO DAILY 04/27/18 04/27/21 [Vitamin D3] L-Lysine 500 mg PO BID 04/27/18 04/27/21 Magnesium Oxide [Magnesium] 500 mg PO DAILY 04/27/18 04/27/21 Metformin HCl [Glucophage] 1,000 mg PO BID 04/27/18 04/27/21 Morphine Sulfate [Ms Contin] 60 mg PO TID 04/27/18 04/27/21 Tumeric 1,000 mg PO DAILY 04/27/18 04/27/21 Vitamin E (Dl,Tocopheryl Acet) 400 units PO DAILY 04/27/18 04/27/21 [Vitamin E] Hydrocodone/Acetaminophen 1 each PO TID 07/27/18 04/27/21 [Hydrocodon-Acetaminophn 10-325] Acitretin [Soriatane] 25 mg PO DAILY 11/20/18 04/27/21 Ferrous Sulfate 325 mg PO DAILY #30 tablet 03/13/20 04/27/21 Gabapentin 100 mg PO QPM #30 capsule 03/13/20 04/27/21 Vits A and D/White Pet/Lanolin [A 1 applic TOP DAILY #113 oint...g. 03/13/20 04/27/21 and D Ointment] HYDROcodone/ACET 10/325 [[place] 10 1 tablet PO Q6H PRN #10 tablet 04/27/21 mg/325 mg] Mupirocin Calcium [Mupirocin] 1 applic TP TID #15 gm 04/27/21 Vits A and D/White Pet/Lanolin 1 applic TP BID #425 gm 04/27/21 [Vitamin A and D Ointment] cephALEXin [Keflex] 500 mg PO QID 5 Days #20 cap 04/27/21 - Allergies Allergies/Adverse Reactions: Allergies Allergy/AdvReac Type Severity Reaction Status Date / Time methadone [Methadone] Allergy Severe increased Verified 10/28/21 21:46 heart rate adhesive tape Allergy Unknown Verified 10/28/21 21:46 PD ED PE NORMAL - Vitals Vital signs reviewed: Yes - General General: Well developed/nourished, Other (drowsy, follows commands but slowly an d sometimes needs repeated instruction. slow to provide answers to most questions, often trails off without clear or accurate (objective questions) answers) - HEENT HEENT: PERRL, Other (dry mucous membranes) - Neck Neck: Supple, no meningeal sign - Respiratory Respiratory: No respiratory distress - Abdomen Abdomen: Soft, Non distended, Other (left-sided tenderness to palpation, most notably LUQ without rebound or guarding) - Back Back: Other - Neuro Eye Opening: To Voice Motor: Obeys Commands Verbal: Confused GCS Score: 13 PD ED PE EXPANDED - Cardiac Cardiac: Tachy, Regular Rhythm, Murmur Present (2/6 JOÃO cardiac base) - Respiratory Respiratory: Wheezing (bilateral end-expiratory), Rhonchi (bilateral scattered rhonchi) - Extremities Extremities: Other (BLE discoloration s/o chronic venous stasis; no evidence of acute infectious process such as cellulitis or abscess) - GCS Eye Opening: To Voice Motor: Obeys Commands Verbal: Confused (place: slowly responds that she is in ER, but is confused with question of which ER and cannot provide answer. time: says year is "two..." and trails off, and has same response when I ask her again) Total: 13 Results - Vitals Vitals: Vital Signs - 24 hr 10/28/21 10/28/21 10/28/21 21:37 22:08 22:13 Temperature 37.6 C Heart Rate 108 H 106 H 109 H Respiratory 21 31 H 36 H Rate Blood Pressure 126/67 111/72 O2 Saturation 87 L 95 99 10/28/21 10/28/21 10/29/21 23:35 23:55 00:30 Temperature Heart Rate 104 H 115 H 111 H Respiratory 34 H 20 21 Rate Blood Pressure 150/79 H 150/118 H O2 Saturation 97 94 Oxygen O2 Source Nasal cannula - Labs Labs: Microbiology 10/28/21 22:21 Blood Culture - Preliminary Blood - Right Arm 10/28/21 22:38 Urine Culture - Preliminary Urine,Clean Catch CULTURE IN PROGRESS. RESULTS TO FOLLOW. Laboratory Tests 10/28/21 10/28/21 10/28/21 22:05 22:17 22:17 WBC 11.7 H RBC 3.91 L Hgb 12.1 Hct 35.7 L MCV 91.3 MCH 30.9 MCHC 33.9 RDW 12.7 Plt Count 203 MPV 10.2 Neut # (Auto) 9.6 H Lymph # (Auto) 0.8 L [place] # (Auto) 0.8 Eos # (Auto) 0.4 Baso # (Auto) 0.0 Absolute Nucleated RBC 0.00 Band Neuts % (Manual) Not Reportable Abnorm Lymph % (Manual) Not Reportable Nucleated RBC % 0.0 Neutrophils # (Manual) Not Reportable Lymphocytes # (Manual) Not Reportable Monocytes # (Manual) Not Reportable Eosinophils # (Manual) Not Reportable Basophils # (Manual) Not Reportable Differential Comment MANUAL=AUTO DIFF Manual Slide Review Indicated Platelet Estimate NORMAL (130-450,000) Platelet Morphology NORMAL APPEARANCE RBC Morph Micro Appear NORMAL APPEARANCE Sodium 133 L Potassium 3.0 L Chloride 93 L Carbon Dioxide 26 Anion Gap 14.0 H BUN 37 H Creatinine 1.2 H Estimated GFR (MDRD) 46 L Glucose 372 H Lactic Acid Calcium 8.2 L Total Bilirubin 0.6 AST 17 ALT 14 Alkaline Phosphatase 65 Total Protein 6.8 Albumin 3.1 L Globulin 3.7 Albumin/Globulin Ratio 0.8 L Lipase 68 H TSH Urine Color Urine Clarity Urine pH Ur Specific [place] Urine Protein Urine Glucose (UA) Urine Ketones Urine Occult Blood Urine Nitrite Urine Bilirubin Urine Urobilinogen Ur Leukocyte Esterase Urine RBC Urine WBC Ur Squamous Epith Cells Urine Bacteria Urine Casts Ur Microscopic Review Urine Culture Comments Nasal Adenovirus (PCR) NOT DETECTED Nasal B. parapertussis DNA (PCR) NOT DETECTED Nasal Coronavir 229E PCR NOT DETECTED Nasal Coronavir HKU1 PCR NOT DETECTED Nasal Coronavir NL63 PCR NOT DETECTED Nasal Coronavir OC43 PCR NOT DETECTED Nasal Enterovir/Rhinovir PCR NOT DETECTED Nasal Influenza B PCR NOT DETECTED Nasal Influenza A PCR NOT DETECTED Nasal Parainfluen 1 PCR NOT DETECTED Nasal Parainfluen 2 PCR NOT DETECTED Nasal Parainfluen 3 PCR NOT DETECTED Nasal Parainfluen 4 PCR NOT DETECTED Nasal RSV (PCR) NOT DETECTED Nasal B.pertussis DNA PCR NOT DETECTED Nasal C.pneumoniae (PCR) NOT DETECTED Richard Human Metapneumo PCR NOT DETECTED Nasal M.pneumoniae (PCR) NOT DETECTED Nasal SARS-CoV-2 (PCR) NOT DETECTED Urine Opiates Screen Ur Oxycodone Screen Urine Methadone Screen Ur Propoxyphene Screen Ur Barbiturates Screen Ur Tricyclics Screen Ur Phencyclidine Scrn Ur Amphetamine Screen U Methamphetamines Scrn U Benzodiazepines Scrn Urine Cocaine Screen U Cannabinoids Screen Ethyl Alcohol < 5.0 Serum Ketones SMALL H 10/28/21 10/28/21 10/28/21 22:17 22:17 22:38 WBC RBC Hgb Hct MCV MCH MCHC RDW Plt Count MPV Neut # (Auto) Lymph # (Auto) [place] # (Auto) Eos # (Auto) Baso # (Auto) Absolute Nucleated RBC Band Neuts % (Manual) Abnorm Lymph % (Manual) Nucleated RBC % Neutrophils # (Manual) Lymphocytes # (Manual) Monocytes # (Manual) Eosinophils # (Manual) Basophils # (Manual) Differential Comment Manual Slide Review Platelet Estimate Platelet Morphology RBC Morph Micro Appear Sodium Potassium Chloride Carbon Dioxide Anion Gap BUN Creatinine Estimated GFR (MDRD) Glucose Lactic Acid 1.8 Calcium Total Bilirubin AST ALT Alkaline Phosphatase Total Protein Albumin Globulin Albumin/Globulin Ratio Lipase TSH 0.24 L Urine Color YELLOW Urine Clarity HAZY Urine pH 5.5 Ur Specific [place] 1.025 Urine Protein 100 H Urine Glucose (UA) >=1000 H Urine Ketones 15 H Urine Occult Blood MODERATE H Urine Nitrite POSITIVE H Urine Bilirubin NEGATIVE Urine Urobilinogen 0.2 (NORMAL) Ur Leukocyte Esterase TRACE H Urine RBC 0-5 Urine WBC 11-25 H Ur Squamous Epith Cells FEW Squamous Urine Bacteria Moderate H Urine Casts 3-5 RBC Casts Ur Microscopic Review INDICATED Urine Culture Comments INDICATED Nasal Adenovirus (PCR) Nasal B. parapertussis DNA (PCR) Nasal Coronavir 229E PCR Nasal Coronavir HKU1 PCR Nasal Coronavir NL63 PCR Nasal Coronavir OC43 PCR Nasal Enterovir/Rhinovir PCR Nasal Influenza B PCR Nasal Influenza A PCR Nasal Parainfluen 1 PCR Nasal Parainfluen 2 PCR Nasal Parainfluen 3 PCR Nasal Parainfluen 4 PCR Nasal RSV (PCR) Nasal B.pertussis DNA PCR Nasal C.pneumoniae (PCR) Richard Human Metapneumo PCR Nasal M.pneumoniae (PCR) Nasal SARS-CoV-2 (PCR) Urine Opiates Screen POSITIVE H Ur Oxycodone Screen NEGATIVE Urine Methadone Screen NEGATIVE Ur Propoxyphene Screen NEGATIVE Ur Barbiturates Screen NEGATIVE Ur Tricyclics Screen NEGATIVE Ur Phencyclidine Scrn NEGATIVE Ur Amphetamine Screen NEGATIVE U Methamphetamines Scrn NEGATIVE U Benzodiazepines Scrn NEGATIVE Urine Cocaine Screen NEGATIVE U Cannabinoids Screen NEGATIVE Ethyl Alcohol Serum Ketones - Rads (name of study) chest xray Radiology: Prelim report reviewed, See rad report CT A/P Radiology: Prelim report reviewed, See rad report PD MEDICAL DECISION MAKING - ED course Complexity details: reviewed old records, reviewed results, re-evaluated patient, considered differential, d/w patient (results d/w patient, although she remains drowsy and confused and thus unclear if she is understanding her condition and plan for admission) ED course: presents with AMS (previous records would indicate her baseline is AAOx3, but she is AAOx2 and markedly slow in responding to questions, often unable to provide answers that are complete or (when objective questions) accurate). reportedly had fever over past few days although she cannot tell me if she has been taking her temperature (seems confused by the question). She is hypoxic on room air. She meets sepsis criteria by heart rate and respiratory rate, with apparently new onset of AMS. She is not in septic shock. UA is consistent with UTI and CT A/P suggestive of left pyelonephritis. she is given 1 gm IV rocephin after appropriate cultures obtained. Case d/w Dr. Corcoran, accepts to hospitalist service - Sepsis Event Current Stage of Sepsis: Severe sepsis Initial Hypotension: Not hypotensive Possible source of Sepsis: Genitourinary Mental/Cognitive Status: Confused, Change from baseline Reason for not giving 30ml/kg crystalloid fluids: Not in septic shock Peripheral Pulse Strength: 3+ Normal Peripheral Pulse Location: Radial Bedside ultrasound performed: No Departure - Departure Disposition: 66 [facility] DC/Xfer Clinical Impression: Pyelonephritis, Hypoxia Condition: Fair Discharge Date/Time: 10/29/21 00:55
[2021-10-28] MEDS ORDERED: iohexoL-300 100 ML VIAL ONE (22:00)
--- NOTE | 2021-10-28 22:18 | XRAY Report ---
PROCEDURE: Chest 1 View X-Ray INDICATIONS: hypoxia TECHNIQUE: One view of the chest was acquired. COMPARISON: 11/10/2018 FINDINGS: Surgical changes and devices: None. Lungs and pleura: There is blunting of left costophrenic angles suggestive of small left pleural effu avril. Mild pulmonary vascular congestion is seen. Left basilar atelectasis is seen. No gross pneumoth orax. Mediastinum: Mediastinal contours appear normal. Heart size is normal. Bones and chest wall: No suspicious bony lesions. Overlying soft tissues appear unremarkable. IMPRESSION: Pulmonary vascular congestion and small left pleural effusion with left basilar atelectasis. Mild pul monary edema. No definite focal infiltrate. No gross pneumothorax. Reviewed by: Sushil Jean-Baptiste MD on 10/28/2021 10:16 PM [facility] Approved by: Sushil Jean-Baptiste MD on 10/28/2021 10:16 PM [facility] Station ID: [id number]
[2021-10-28 22:30] LABS: BASOPHILS % (AUTO) 0.3 %; EOSINOPHILS # (AUTO) 0.4 10^3/uL (0.0-0.7); HCT - HEMATOCRIT 35.7 % (37.0-47.0); HGB - HEMOGLOBIN 12.1 g/dL (12.0-16.0); LYMPHOCYTES # (AUTO) 0.8 10^3/uL (1.5-3.5); LYMPHOCYTES % (AUTO) 6.8 %; MEAN CORPUSCULAR HEMOGLOBIN 30.9 pg (27.0-31.0); MEAN CORPUSCULAR HGB CONC 33.9 g/dL (32.0-36.0); MEAN CORPUSCULAR VOLUME 91.3 fL (81.0-99.0); MEAN PLATELET VOLUME 10.2 fL (7.9-10.8); MONOCYTES # (AUTO) 0.8 10^3/uL (0.0-1.0); MONOCYTES % (AUTO) 6.8 %; NEUTROPHILS # (AUTO) 9.6 10^3/uL (1.5-6.6); NEUTROPHILS % (AUTO) 82.2 %; PLT - PLATELET COUNT 203 10^3/uL (130-450); RED BLOOD COUNT 3.91 10^6/uL (4.20-5.40); RED CELL DISTRIBUTION WIDTH 12.7 % (12.0-15.0); WHITE BLOOD COUNT 11.7 x10^3/uL (4.8-10.8)
[2021-10-28 22:38] LABS: KETONES, SERUM (ACETEST) SMALL (NEGATIVE)
[2021-10-28 22:39] LABS: SLIDE REVIEW? Indicated
[2021-10-28 22:42] LABS: ALBUMIN 3.1 g/dL (3.2-5.5); ALBUMIN/GLOBULIN RATIO 0.8 (1.0-2.2); ALKALINE PHOSPHATASE 65 IU/L (42-121); ALT ALANINE AMINOTRANSFERASE 14 IU/L (10-60); AST ASPARTATE AMINOTRANSFERASE 17 IU/L (10-42); BILIRUBIN,TOTAL 0.6 mg/dL (0.2-1.0); BUN - BLOOD UREA NITROGEN 37 mg/dL (6-20); CALCIUM 8.2 mg/dL (8.5-10.3); CARBON DIOXIDE - CO2 26 mmol/L (21-32); CHLORIDE 93 mmol/L (101-111); CREATININE 1.2 mg/dL (0.4-1.0); ETOH - ETHANOL < 5.0 mg/dL; GFR - MDRD 46 (>89); GLUCOSE 372 mg/dL (70-100); LIPASE 68 U/L (22-51); SODIUM 133 mmol/L (135-145); TOTAL PROTEIN 6.8 g/dL (6.7-8.2)
[2021-10-28 22:44] LABS: MUDS CUTOFF CONCENTRATIONS CUTOFF CONC BELOW:
[2021-10-28 22:47] LABS: BILIRUBIN,URINE NEGATIVE (NEGATIVE); GLUCOSE, URINE (UA) >=1000 mg/dL (NEGATIVE); KETONES,URINE (UA) 15 mg/dL (NEGATIVE); LEUKOCYTE ESTERASE, URINE TRACE (NEGATIVE); NITRITE,URINE POSITIVE (NEGATIVE); OCCULT BLOOD,URINE MODERATE (NEGATIVE); PH,URINE 5.5 PH (5.0-7.5); PROTEIN,URINE 100 mg/dL (NEGATIVE); UROBILINOGEN,URINE 0.2 (NORMAL) E.U./dL (NORMAL)
[2021-10-28 22:50] LABS: DIFFERENTIAL COMMENT MANUAL=AUTO DIFF; PLATELET ESTIMATE, MANUAL NORMAL (130-450,000) (NORMAL); PLATELET MORPHOLOGY NORMAL APPEARANCE (NORMAL); RBC MORPHOLOGY (MULTIPLE) NORMAL APPEARANCE (NORMAL)
[2021-10-28 22:51] LABS: CLARITY,URINE HAZY (CLEAR)
[2021-10-28 22:59] LABS: BACTERIA,URINE Moderate /HPF (None Seen); RBC,URINE 0-5 /HPF (0-5); SQUAMOUS EPITHELIAL CELL,UR FEW Squamous (<= Few)
[2021-10-28 23:00] LABS: COCAINE SCREEN URINE NEGATIVE (NEGATIVE); METHAMPHETAMINES SCREEN, URINE NEGATIVE (NEGATIVE); OPIATE SCREEN, URINE POSITIVE (NEGATIVE); THC CANNABINOID SCREEN, URINE NEGATIVE (NEGATIVE)
[2021-10-28 23:01] LABS: AMPHETAMINE SCREEN,URINE NEGATIVE (NEGATIVE); BARBITURATE SCREEN,UR NEGATIVE (NEGATIVE); BENZODIAZEPINES SCREEN, URINE NEGATIVE (NEGATIVE); METHADONE SCREEN, URINE NEGATIVE (NEGATIVE); OXYCODONE SCREEN, URINE NEGATIVE (NEGATIVE); PROPOXYPHENE SCREEN, URINE NEGATIVE (NEGATIVE); TRICYCLIC ANTIDEPRESSANT,URINE NEGATIVE (NEGATIVE)
[2021-10-28 23:03] LABS: B. PARAPERTUSSIS- RESP PCR PAN NOT DETECTED; B. PERTUSSIS- RESP PCR PANEL NOT DETECTED; C. PNEUMONIAE- RESP PCR PANEL NOT DETECTED; CORONAVIRUS 229E-RESP PCR NOT DETECTED; CORONAVIRUS HKU1-RESP PCR NOT DETECTED; CORONAVIRUS NL63-RESP PCR NOT DETECTED; CORONAVIRUS OC43-RESP PCR NOT DETECTED; HUMAN METAPNEUMOVIRUS NOT DETECTED; INFLUENZA A- RESP PCR PANEL NOT DETECTED; INFLUENZA B - RESP PCR PANEL NOT DETECTED; M. PNEUMONIAE- RESP PCR PANEL NOT DETECTED; PARAINFLUENZA VIRUS 1 NOT DETECTED; PARAINFLUENZA VIRUS 2 NOT DETECTED; PARAINFLUENZA VIRUS 3 NOT DETECTED; PARAINFLUENZA VIRUS 4 NOT DETECTED; RHINOVIRUS/ENTEROVIRUS NOT DETECTED; RSV- RESP PCR PANEL NOT DETECTED; SARS-CoV-2 -RESP PCR PANEL NOT DETECTED
[2021-10-28] MEDS ORDERED: iohexoL-300 100 ML VIAL IVP ONE (23:13)
--- NOTE | 2021-10-28 23:26 | CT Report ---
PROCEDURE: Abdomen/Pelvis W INDICATIONS: abd. pain CONTRAST: IV CONTRAST: Isovue 300 ml: 100 PO CONTRAST: *NO PO CONTRAST TECHNIQUE: After the administration of IV contrast, 5 mm thick sections acquired from the diaphragms to the symp hysis. 5 mm thick coronal and sagittal reformats were acquired. For radiation dose reduction, the f ollowing was used: automated exposure control, adjustment of mA and/or kV according to patient size. COMPARISON: None. FINDINGS: Image quality: Excellent. ABDOMEN: Lung bases: Small infiltrate/atelectasis at lateral and posterior aspect of left lung base is seen. H eart size is enlarged, no pericardial effusion. Moderate coronary atherosclerotic calcifications are seen. Solid organs: Liver is normal in size. Mild hepatic steatosis is seen. Spleen shows normal size and e nhancement. Small splenule is noted. Hyperdense sludge material is seen in dependent portion of gallb ladder lumen. No gallbladder wall thickening or pericholecystic fluid. Biliary system is non dilated. Pancreas enhances normally. No right adrenal nodules. Thickened left adrenal gland with suggestion of left adrenal nodule measures 1.4 x 2 cm in size is seen. Right kidney is normal in size and show normal enhancement. No renal stone or hydronephrosis. Left kidney is slightly enlarged compared to ri ght side with ill-defined areas of hypoenhancement involving upper to midpole of left kidney. No obst ructing stone or hydronephrosis is seen. Multiple nonobstructing left renal calculi are noted measure s up to 9 mm in size in midpole of left kidney. Mild left perinephric fat stranding is also seen. Peritoneum and bowel: Bowel loops demonstrate normal wall thickness and caliber. No free fluid or a ir. Mild fecal stasis in the colon is seen. Nodes and vessels: No retroperitoneal or mesenteric adenopathy by size criteria. Aorta and inferior vena cava are normal in size. Moderate atherosclerotic disease is noted. Miscellaneous: No ventral hernias. PELVIS: Genitourinary: Partially distended urinary bladder shows no gross bladder wall abnormality. Patient i s status post hysterectomy. Miscellaneous: No inguinal hernias or adenopathy. Bones: No suspicious bony lesions. No vertebral body compression fractures. IMPRESSION: 1. Asymmetrically enlarged left kidney with heterogeneous enhancement in upper to midpole and mild le ft perinephric fat stranding concerning for pyelonephritis, suggest clinical correlation. Nonobstruct ing stone seen in left kidney. No hydronephrosis. No gross abnormality is seen in right kidney. 2. No bowel obstruction or abnormal bowel wall thickening. No free fluid of free air. 3. Left basilar small infiltrate/atelectasis. Cardiomegaly and moderate atherosclerotic disease. 4. Thickened left adrenal gland with suggestion of a left adrenal nodule which may represent an adren al adenoma. Mild hepatic steatosis. 5. Hyperdense sludge material within dependent portion of gallbladder lumen. No CT evidence of acute cholecystitis. Reviewed by: Sushil Jean-Baptiste MD on 10/28/2021 11:25 PM PST Approved by: Sushil Jean-Baptiste MD on 10/28/2021 11:25 PM PST Station ID: [id number]
[2021-10-28] MEDS ORDERED: cefTRIAXone 1 GM in SODIUM CHLORIDE 0.9% MINIBAG 100 ML IV STA (23:47)
[2021-10-28] MEDS ORDERED: IPRATROPIUM/ALBUTEROL 3 ML NEB INH STA (23:47)
[2021-10-28] MEDS ORDERED: cefTRIAXone 1 GM VIAL ONE (23:57)
[2021-10-29] MEDS ORDERED: ONDANSETRON ODT 4 MG TABLET TL PRN (00:33)
[2021-10-29] MEDS ORDERED: SODIUM CHLORIDE FLUSH 0.9% 10 ML SYRINGE IVP PRN (00:33)
[2021-10-29] MEDS ORDERED: ONDANSETRON 4 MG/2 ML VIAL IVP PRN (00:33)
--- NOTE | 2021-10-29 00:45 | HISTORY & PHYSICAL EXAMINATION ---
Chief Complaint - Chief Complaint Chief Complaint: Shortness of breath and abdominal pain History of Present Illness - Admitted From Admitted From:: Home via EMS - History Obtained From Records Reviewed: [facility] History obtained from: Dr. Peterson Exam Limitations: Patient is lethargic, difficult to arouse and get a history of - History of Present Illness HPI Comment/Other: 61-year-old female who states that she has been having some problems breathing over the last couple of days, and she has been having increasing left upper quadrant abdominal ache. The patient is a diabetic. Difficult historian because of disorientation, psychomotor slowing. At her baseline she is described as alert and oriented. EMS was called to pick her up at home because of confusion and her complaints. She received an IV bolus at the scene and was noted to be hypoxic. Not much more history is obtained because of her confusion. She was evaluated by Dr. Peterson who found her to be 37.6 temp. Heart rate 108. Blood pressure 126/67. Respirations 21 and 87% on room air. To maintain O2 sats, she needs anywhere between 2 to 5 L nasal cannula. She desaturates when she falls asleep. She has mild left upper quadrant and left mid abdominal pain. Otherwise normal exam except for the psychomotor slowing. Sodium was 133, potassium 3. BUN 37, creatinine 1.2. Her baseline creatinine is 0.9-1.0. White cell count is elevated 11.7 thousand. Baseline for her is 6-7000. Urinalysis had proteinuria, glucosuria, ketonuria, moderate occult blood, nitrites, leukocyte Estrace, white cells, bacteria and granular casts. Talk screen was positive for opiates, and a small amount of ketones. Because of the abdominal pain a CT of the abdomen and pelvis was done. She has mild hepatic steatosis. Spleen is normal. Hyperdense sludge seen in the dependent portion of the gallbladder. But no acute inflammatory changes. She has a thickened left adrenal gland with a suggestion of an adrenal nodule. Right kidney is normal. Left kidney is slightly enlarged compared to the right with ill-defined areas of hypoenhancement involving upper to middle left kidney. No obstructing stone or hydronephrosis. Multiple nonobstructing left renal calculi are noted. Mild left perinephric stranding is also seen. This is compatible with pyelonephritis on that left kidney. Bowel is normal. Left basilar small infiltrate or atelectasis. Cardiomegaly and moderate atherosclerotic disease are noted. Assess the patient is now admitted for pyelonephritis with altered mental status. History - Past Medical History Cardiovascular: reports: High cholesterol, Peripheral Vascular Disease (In her legs. Has been seen by vascular surgery at [place] in May 2021), Other (Venous stasis. Has been seen by wound clinic in the past for pretibial ulcer) Respiratory: reports: Asthma, COPD, Emphysema Neuro: reports: Peripheral neuropathy Endocrine/Autoimmune: reports: Type 2 diabetes GI: reports: None COOK SOUP: reports: None : reports: None HEENT: reports: None Psych: reports: Depression, Anxiety Musculoskeletal: reports: Osteoarthritis, Scoliosis, Chronic back pain Derm: reports: Psoriasis MRSA Hx?: Yes - Past Surgical History Ortho: reports: 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 surgery /COOK SOUP: reports: Hysterectomy, Oophrectomy - Family & Social History Family History Comment/Other: Mom and dad of old age. 1 brother with cancer unknown type. Children are healthy Living arrangement: At home Social History Notes: [facility]. Born in [place]. 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 Always wore a mask. Smoker for many years.No history of alcohol abuse. No history of recreational substance abuse. This is from old records, she cannot contribute - Substance History Use: Uses substance without health or social issues: NONE Abuse: Recurrent use of substance despite neg consequences: NONE Dependence: Experiences withdrawal or developed tolerances: NONE - POLST Patient has POLST: No POLST Status: Full Code Meds/Allgy - Home Medications Home Medications: Ambulatory Orders Medication Instructions Recorded Confirmed Atorvastatin Calcium 20 mg PO ONCEDAILY 07/24/13 04/27/21 Cyclobenzaprine [Flexeril] 10 mg PO TID 07/24/13 04/27/21 Insulin Aspart [Novolog] 18 - 26 units SQ DAILY 07/24/13 04/27/21 Lisinopril 10 mg PO ONCEDAILY 07/24/13 04/27/21 [place]-3 Fatty Acids/Fish Oil [Fish 1 each PO TID 07/24/13 04/27/21 Oil 1,000 mg Capsule] gemfibroziL [Gemfibrozil] 600 mg PO BID 07/24/13 04/27/21 Nabumetone 1,000 mg PO BID 05/13/15 04/27/21 Sertraline [Zoloft] 25 mg PO DAILY 02/29/16 04/27/21 Insulin Glargine [Lantus Solostar] 45 units SQ DAILY 02/24/17 04/27/21 Albuterol Sulf [Ventolin Hfa 1 - 2 puffs INH BID PRN 04/27/18 04/27/21 Inhaler] Ascorbic Acid [Vitamin C] 1,000 mg PO TID 04/27/18 04/27/21 Cholecalciferol (Vitamin D3) 1,000 units PO DAILY 04/27/18 04/27/21 [Vitamin D3] L-Lysine 500 mg PO BID 04/27/18 04/27/21 Magnesium Oxide [Magnesium] 500 mg PO DAILY 04/27/18 04/27/21 Metformin HCl [Glucophage] 1,000 mg PO BID 04/27/18 04/27/21 Morphine Sulfate [Ms Contin] 60 mg PO TID 04/27/18 04/27/21 Tumeric 1,000 mg PO DAILY 04/27/18 04/27/21 Vitamin E (Dl,Tocopheryl Acet) 400 units PO DAILY 04/27/18 04/27/21 [Vitamin E] Hydrocodone/Acetaminophen 1 each PO TID 07/27/18 04/27/21 [Hydrocodon-Acetaminophn 10-325] Acitretin [Soriatane] 25 mg PO DAILY 11/20/18 04/27/21 Ferrous Sulfate 325 mg PO DAILY #30 tablet 03/13/20 04/27/21 Gabapentin 100 mg PO QPM #30 capsule 03/13/20 04/27/21 Vits A and D/White Pet/Lanolin [A 1 applic TOP DAILY #113 oint...g. 03/13/20 04/27/21 and D Ointment] HYDROcodone/ACET 10/325 [[place] 10 1 tablet PO Q6H PRN #10 tablet 04/27/21 mg/325 mg] Mupirocin Calcium [Mupirocin] 1 applic TP TID #15 gm 04/27/21 Vits A and D/White Pet/Lanolin 1 applic TP BID #425 gm 04/27/21 [Vitamin A and D Ointment] cephALEXin [Keflex] 500 mg PO QID 5 Days #20 cap 04/27/21 - Allergies Allergies/Adverse Reactions: Allergies Allergy/AdvReac Type Severity Reaction Status Date / Time methadone [Methadone] Allergy Severe increased Verified 10/28/21 21:46 heart rate adhesive tape Allergy Unknown Verified 10/28/21 21:46 Review of Systems - Constitutional Constitutional: reports: Fatigue, Malaise, Poor appetite, Other (History is very difficult to obtain in this lady who is with probable metabolic encephalopathy) - Eyes Eyes: reports: Other (She denies any problems.) - Ears, Nose & Throat Ears, Nose & Throat: reports: Other (She denies any problems.) - Cardiovascular Cariovascular: reports: Exertional dyspnea, Decr. exercise tolerance. denies: Chest pain - Respiratory Respiratory: reports: SOB at rest, SOB with exertion. denies: Cough - Gastrointestinal Gastrointestinal: reports: Abdominal pain, Nausea. denies: Constipation, Diarrhea, Black stools, Bloody stools, Vomiting - Genitourinary Genitourinary: reports: Flank pain. denies: Dysuria, Frequency, Urgency, Hematuria - Musculoskeletal Musculoskeletal: reports: Muscle aches - Integumentary Integumentary: denies: Rash, Pruritis, Lesions, Dryness - Neurological Neurological: reports: General weakness, Headache - Psychiatric Psychiatric: denies: Depression, Anxiety, Suicidal - Endocrine Endocrine: denies: Polyuria, Polydypsia - Hematologic/Lymphatic Hematologic/Lymphatic: denies: Anemia, Bruising - All Other Systems All Other Systems: reports: Other (ROS done but since she is so difficult to keep focused may be suspect) Prior Level of Functionality: She states that she is independent with activities of daily living. However a home health note from 2020 states the patient has limited mobility due to obesity and deconditioning and is noncompliant with medical program Exam - Vital Signs Reviewed Vital Signs: Yes Vital Signs: Vital Signs x48h Temp Pulse Resp BP Pulse Ox 10/28/21 23:55 115 H 20 10/28/21 23:35 104 H 34 H 150/79 H 97 10/28/21 22:13 109 H 36 H 99 10/28/21 22:08 106 H 31 H 111/72 95 10/28/21 21:37 37.6 C 108 H 21 126/67 87 L - Physical Exam General Appearance: positive: Lethargic, Other (Moderately overweight female who looks older than stated age, using belly muscles to breathe, mouth open br eathing, and slow motor and verbal responses) Eyes Bilateral: positive: PERRL, EOMI ENT: positive: Dry mucous membranes Neck: positive: No JVD. negative: Lymphadenopathy (R), Lymphadenopathy (L), Stiff neck Respiratory: positive: Other (Fast, slightly panting respirations, diminished breath sounds diffusely. Mouth breathing. Nasal cannula not completely effective at keeping her O2 sats above 92%.). negative: Wheezes, Rales, Rhonchi Cardiovascular: positive: Regular rate & rhythm, Tachycardia (Febrile at this time). negative: Gallop/S4, Friction rub Abdomen: positive: Nml bowel sounds, No distention, Tenderness (LUQ and L midline, L flank), Other (Large, protuberant, abdominal pannus. She is using her abdominal muscles to pant. Not much chest wall excursion) Back: positive: CVA tenderness (L) Skin: positive: Diaphoresis, Other (skin hot to touch. Anterior shins are dark from hemosiderin, dry and cracked) Extremities: positive: No pedal edema Neurologic/Psychiatric: positive: CN's nml (2-12), Motor nml, Disoriented to place, Disoriented to time, Weakness (needs 2 assists to get up to bathroom), Slurred/abnml speech (slow mentation, and slow speech) Sepsis Event Note (H) - Evaluation Current Stage of Sepsis: Sepsis Possible source of Sepsis: positive: Genitourinary - Sepsis Criteria Sepsis Criteria: Recorded Temperature greater than 38.3C or Less than 36C, Recorded Heart Rate greater than 90 bpm, Respiratory: Increasing oxygen requirements, HUMAN FACTORS SPECIALIST: altered consciousness (unrelated to primary neuro pathology) Conclusion/Plan - Problem List (1) Sepsis Conclusion/Plan: She meets criteria with sepsis due to vital signs, lethargy and altered mental status. Qualifiers: Sepsis type: sepsis due to unspecified organism Sepsis acute organ dysfunction status: without acute organ dysfunction Qualified Code(s): A41.9 - Sepsis, unspecified organism (2) Pyelonephritis Conclusion/Plan: Inpatient status Review of [place] antibiotic guide states that Rocephin would be given for 10 days and Levaquin would be given for 5 to 7 days. As such I will switch the patient from Rocephin to Levaquin that was started in the ER. We will review her blood cultures and urine cultures and adjust as needed. (3) Metabolic encephalopathy Conclusion/Plan: Although lactic acid is only 1.8, this patient has dehydration on her labs, hyponatremia, hypokalemia and an elevated white cell count. I suspect infection and inflammatory response has caused a metabolic encephalopathy. She also takes long-acting opioids. And her confusion could she have taken more than her usual amount? No focal deficits. Treat with IV fluids and antibiotics and continue to observe until she improves and goes back to baseline (4) COPD (chronic obstructive pulmonary disease) Conclusion/Plan: In a smoker. We will use as needed DuoNeb. No current exacerbation. Qualifiers: COPD type: unspecified COPD Qualified Code(s): J44.9 - Chronic obstructive pulmonary disease, unspecified (5) Type 2 diabetes mellitus with hyperglycemia, without long-term current use of insulin Conclusion/Plan: Again, the note from home health states that this patient is relatively noncompliant with her medical regimen. Plan: Check A1c in the morning Start Lantus twice daily Sliding scale regular insulin Avoid metformin while she is in the hospital. (6) HTN (hypertension) Conclusion/Plan: Her usual home medications and continue to monitor Qualifiers: Hypertension type: primary hypertension Qualified Code(s): I10 - Essential (primary) hypertension (7) Chronic pain Conclusion/Plan: Patient's current medication list is MS Contin 60 mg p.o. 3 times daily. Has not been verified by pharmacy yet. She is also on Zoloft 25 mg daily. Cyclobenzaprine is also on her list.Her talk screen is positive for only opiates. Some of her lethargy and hypoxia may come from long-acting opioid use. But she is also consistently tachycardic and hypertensive. The tachycardia could come from the fever and infection, and the hypertension could come from not taking her medications. But I would also watch out for withdrawal. Plan on having pharmacy verify and we will resume these medications tomorrow Maintain O2 sat above 92%. She does not need to be with 100% saturation. Qualifiers: Chronic pain type: chronic pain syndrome Qualified Code(s): G89.4 - Chronic pain syndrome (8) Hyponatremia Conclusion/Plan: She may have had poor p.o. intake over the last few days. It is only supposition at this time since history is difficult to obtain. She also has hypokalemia. Plan: Supplement with p.o. potassium, IV fluids for hydration Repeat BMP in the morning (9) KYLIE (acute kidney injury) Conclusion/Plan: Minute obtaining a physical exam in this woman who is very lethargic, psychomotor slowing, on long-term opioids, I would think that dehydration with poor p.o. intake would have caused the acute kidney injury. Patient will be on 2 L of fluid at 250 cc an hour. We will recheck BMP in the morning. - Lab Results Lab results reviewed: Yes Fish Bones: 10/28/21 22:17 10/28/21 22:17 - Diagnostic Imaging Results Diagnostic Imaging Results: positive: Final report reviewed - EKG Results EKG Interpreted Independently: No Core Measures - Anticipated LOS I expect patient to be DC'd or transferred within 96 hours.: Yes - DVT/VTE - Prophylaxis VTE/DVT Device ordered at admit?: Yes
[2021-10-29] MEDS ORDERED: IPRATROPIUM/ALBUTEROL 3 ML NEB INH PRN (00:54)
[2021-10-29] MEDS: LACTATED RINGERS 1,000 ML IV SCH ×2 (01:33→06:28)
[2021-10-29] MEDS: SODIUM CHLORIDE FLUSH 0.9% 10 ML SYRINGE IVP SCH ×3 (01:34→18:13)
[2021-10-29] MEDS: oxyCODONE 5 MG TABLET PO PRN ×3 (01:40→22:51)
[2021-10-29] MEDS: levoFLOXacin 750 MG/150 ML 750 MG/150 ML BAG IV SCH (01:44)
[2021-10-29] MEDS ORDERED: INSULIN ASPART 300 UNIT/3 ML PEN SUBQ ONE ×3 (04:47→11:40)
[2021-10-29] MEDS: ACETAMINOPHEN 325 MG TABLET PO PRN ×2 (05:15→12:23)
[2021-10-29 06:21] LABS: BASOPHILS % (AUTO) 0.6 %; EOSINOPHILS % (AUTO) 2.9 %; HCT - HEMATOCRIT 36.5 % (37.0-47.0); HGB - HEMOGLOBIN 12.5 g/dL (12.0-16.0); MEAN CORPUSCULAR HEMOGLOBIN 30.6 pg (27.0-31.0); MEAN CORPUSCULAR HGB CONC 34.2 g/dL (32.0-36.0); MEAN CORPUSCULAR VOLUME 89.2 fL (81.0-99.0); MEAN PLATELET VOLUME 10.4 fL (7.9-10.8); MONOCYTES % (AUTO) 6.5 %; NEUTROPHILS % (AUTO) 84.4 %; PLT - PLATELET COUNT 168 10^3/uL (130-450); RED BLOOD COUNT 4.09 10^6/uL (4.20-5.40); RED CELL DISTRIBUTION WIDTH 12.4 % (12.0-15.0); WHITE BLOOD COUNT 9.6 x10^3/uL (4.8-10.8)
[2021-10-29 06:26] LABS: ABNORMAL LYMPHS % (MANUAL) 0 %; CALCIUM 8.5 mg/dL (8.5-10.3); CREATININE 1.2 mg/dL (0.4-1.0); POTASSIUM 2.6 mmol/L (3.5-5.0)
[2021-10-29] MEDS: POTASSIUM CHLOR 10 MEQ/100 ML 10 MEQ/100 ML BAG IV SCH ×4 (06:35→11:07)
[2021-10-29 06:41] LABS: BAND NEUTROPHILS % (MANUAL) 27 %; DIFFERENTIAL COMMENT MANUAL DIFFERENTIAL; LYMPHOCYTES # (MANUAL) 0.6 10^3/uL (1.5-3.5); LYMPHOCYTES % (MANUAL) 6 %; MONOCYTES # (MANUAL) 0.4 10^3/uL (0.0-1.0); NEUTROPHILS # (MANUAL) 8.6 10^3/uL (1.5-6.6); PLATELET ESTIMATE, MANUAL NORMAL (130-450,000) (NORMAL); RBC MORPHOLOGY (MULTIPLE) NORMAL APPEARANCE (NORMAL)
[2021-10-29] MEDS ORDERED: POTASSIUM CHLORIDE 20 MEQ TABLET PO ONE (07:33)
[2021-10-29] MEDS ORDERED: LACTATED RINGERS 1,000 ML IV SCH (07:36)
[2021-10-29] MEDS ORDERED: INSULIN GLARGINE 300 UNIT/3 ML PEN SUBQ SCH ×3 (08:00→21:00)
--- NOTE | 2021-10-29 08:08 | XRAY Report ---
PROCEDURE: Chest 1 View X-Ray INDICATIONS: sob TECHNIQUE: One view of the chest was acquired. COMPARISON: CXR 10/28/2021, 11/10/2018. Lung bases on CT abdomen and pelvis 10/28/2021. FINDINGS: Surgical changes and devices: None. Lungs and pleura: Increased pulmonary markings bilaterally. Platelike consolidation at the left lung base. No significant pleural effusion. No pneumothorax. Mediastinum: Mediastinal contours appear normal. Heart size is within normal limits. Bones and chest wall: No suspicious bony lesions. Overlying soft tissues appear unremarkable. IMPRESSION: Suspect mild fluid overload/CHF. Mild atelectasis at the lung bases. Reviewed by: Vickey Adame MD on 10/29/2021 8:07 AM PST Approved by: Vickey Adame MD on 10/29/2021 8:07 AM [facility] Station ID: [id number]
[2021-10-29] MEDS: INSULIN ASPART 300 UNIT/3 ML PEN SUBQ SCH ×5 (08:26→21:04)
[2021-10-29] MEDS: ENOXAPARIN 40 MG/0.4 ML SYRINGE SUBQ SCH (08:30)
[2021-10-29] MEDS ORDERED: lisinopriL 5 MG TABLET PO SCH (09:00)
[2021-10-29] MEDS ORDERED: FUROSEMIDE 20 MG/2 ML VIAL IVP SCH (11:14)
[2021-10-29] MEDS ORDERED: FUROSEMIDE 20 MG TABLET PO ONE (11:18)
[2021-10-29] MEDS ORDERED: MORPHINE SULFATE ER 30 MG TABLET PO SCH (23:00)
[2021-10-30] MEDS: ACETAMINOPHEN 325 MG TABLET PO PRN ×2 (01:35→13:59)
[2021-10-30] MEDS: SODIUM CHLORIDE FLUSH 0.9% 10 ML SYRINGE IVP SCH ×3 (01:36→17:13)
[2021-10-30] MEDS: levoFLOXacin 750 MG/150 ML 750 MG/150 ML BAG IV SCH (01:36)
[2021-10-30 06:08] LABS: BASOPHILS % (AUTO) 0.3 %; EOSINOPHILS % (AUTO) 0.1 %; HCT - HEMATOCRIT 35.1 % (37.0-47.0); HGB - HEMOGLOBIN 11.7 g/dL (12.0-16.0); MEAN CORPUSCULAR HEMOGLOBIN 30.2 pg (27.0-31.0); MEAN CORPUSCULAR HGB CONC 33.3 g/dL (32.0-36.0); MEAN CORPUSCULAR VOLUME 90.7 fL (81.0-99.0); MEAN PLATELET VOLUME 10.7 fL (7.9-10.8); MONOCYTES % (AUTO) 10.7 %; NEUTROPHILS % (AUTO) 81.3 %; PLT - PLATELET COUNT 195 10^3/uL (130-450); RED BLOOD COUNT 3.87 10^6/uL (4.20-5.40); RED CELL DISTRIBUTION WIDTH 12.9 % (12.0-15.0)
[2021-10-30 06:12] LABS: KETONES, SERUM (ACETEST) SMALL (NEGATIVE)
[2021-10-30 06:14] LABS: BUN - BLOOD UREA NITROGEN 35 mg/dL (6-20); CALCIUM 8.4 mg/dL (8.5-10.3); CARBON DIOXIDE - CO2 25 mmol/L (21-32); CHLORIDE 97 mmol/L (101-111); CREATININE 0.9 mg/dL (0.4-1.0); GFR - MDRD 63 (>89); GLUCOSE 331 mg/dL (70-100); POTASSIUM 3.4 mmol/L (3.5-5.0); SODIUM 133 mmol/L (135-145)
[2021-10-30] MEDS: ASCORBIC ACID 500 MG TABLET PO SCH ×3 (06:24→21:33)
[2021-10-30 06:26] LABS: ABNORMAL LYMPHS % (MANUAL) 0 %
[2021-10-30 07:13] LABS: BAND NEUTROPHILS % (MANUAL) 18 %; LYMPHOCYTES # (MANUAL) 0.6 10^3/uL (1.5-3.5); LYMPHOCYTES % (MANUAL) 6 %; MONOCYTES # (MANUAL) 0.6 10^3/uL (0.0-1.0); NEUTROPHILS # (MANUAL) 8.8 10^3/uL (1.5-6.6)
[2021-10-30 07:14] LABS: DIFFERENTIAL COMMENT MANUAL DIFFERENTIAL
[2021-10-30] MEDS ORDERED: POTASSIUM CHLORIDE 20 MEQ TABLET PO ONE (07:47)
[2021-10-30] MEDS ORDERED: INSULIN ASPART 300 UNIT/3 ML PEN SUBQ ONE ×2 (07:50→11:34)
[2021-10-30] MEDS ORDERED: FUROSEMIDE 20 MG TABLET PO ONE (08:00)
[2021-10-30] MEDS: CHOLECALCIFEROL 25 MCG TABLET PO SCH (08:36)
[2021-10-30] MEDS: ENOXAPARIN 40 MG/0.4 ML SYRINGE SUBQ SCH (08:36)
[2021-10-30] MEDS: SERTRALINE 50 MG TABLET PO SCH ×2 (08:36→09:02)
[2021-10-30] MEDS: FERROUS SULFATE 325 MG TABLET PO SCH (08:36)
[2021-10-30] MEDS: lisinopriL 20 MG TABLET PO SCH (08:37)
[2021-10-30] MEDS: MORPHINE SULFATE ER 30 MG TABLET PO SCH ×2 (08:51→17:12)
[2021-10-30] MEDS: INSULIN ASPART 300 UNIT/3 ML PEN SUBQ SCH ×7 (08:53→21:33)
[2021-10-30] MEDS: INSULIN GLARGINE 300 UNIT/3 ML PEN SUBQ SCH (08:56)
[2021-10-30] MEDS ORDERED: BENZOCAINE/MENTHOL LOZENGE MM PRN (10:00)
[2021-10-30] MEDS ORDERED: ALBUTEROL NEB 2.5 MG/3 ML INH PRN (10:20)
--- NOTE | 2021-10-30 10:24 | PHARMACY PROGRESS NOTE ---
- Best Possible Medication History Admit Date and Time: 10/29/21 0033 Processed by: Pharmacy Medication History completed: Yes Secondary Source(s): Physician records, Pharmacy records, Insurance records As the person ultimately responsible for medication therapy, providers are able to order a medication from an existing home medication list in [facility] via the "Reconcile Routine" prior to Confirmation of that medication by human resources support specialist. Such practice is discouraged except when the physician, in their clinical judgment, deems that a medical need exists for a medication without regard to previous use.
[2021-10-30] MEDS: CYCLOSPORINE MODIFIED 100 MG PO SCH ×2 (10:31→21:32)
--- NOTE | 2021-10-30 11:11 | PROVIDER PROGRESS NOTE ---
Assessment/Plan - Problem List (1) Bacteremia Assessment/Plan: 10/30 Both tube of patient's blood culture were positive for gram negative Klebsiella pneumoniae (PCR confirmed), and ECHO study (not KAYE) indicated Echogenic vegatation. blood culture sensitivity study is pending now. pt has no more fever, her mental status has great improved with alert and oriented plus 4, tachycardia is resolved, O2 required is reduced. plan: continue antibiotics and probiotics, repeat blood culture in 48hours (2) Sepsis 10/30 pt has no more fever, her mental status has great improved with alert and oriented plus 4, tachycardia is resolved, O2 required is reduced. her BP is stable. plan: continue antibiotics and probiotics, repeat blood culture in 48hours, blood culture sensitivity study is pending (3) Pyelonephritis Conclusion/Plan: 10/30 improved. pt has no N/V, no more fever, creatinine is 0.9, continue antibiotics (4) Metabolic encephalopathy Conclusion/Plan: 10/30 resolved (5) COPD (chronic obstructive pulmonary disease) Conclusion/Plan: 10/30 improved. O2 required is reduced. add scheduled Duoneb. since pt has no shown acute COPD exacerbation, hold steroid now. strongly advise pt quit cigarette smoking. CXR reveals mild fluid overloaded, hold IVF, and add once low dosage of Lasix (6) Type 2 diabetes mellitus with hyperglycemia, without long-term current use of insulin Conclusion/Plan: 10/30 glucose is still high. home insulin is confirmed on today. increase her Lantus to her home lantus dosage, and slide scale. continue glucose check ACHS, and hypoglycemia protocol (7) HTN (hypertension) Conclusion/Plan: Her usual home medications and continue to monitor (8) Chronic pain Conclusion/Plan: stable and controlled, continue home pain regimen (9) Hyponatremia Conclusion/Plan: Na 133, more control of her elevated hyperglycemia to improve her slight lower sodium (10) KYLIE (acute kidney injury) Conclusion/Plan: creatinine is 0.9, resolved. - Current Meds Current Meds: Current Medications Generic Name Dose Route Start Last Admin Trade Name Freq PRN Reason Stop Dose Admin Acetaminophen 650 mg 10/29/21 00:33 10/30/21 01:35 Acetaminophen 325 Mg Tablet PO 650 mg Q4HR PRN Administration Pain 1 to 4 Ascorbic Acid 1,000 mg 10/30/21 06:00 10/30/21 06:24 Ascorbic Acid 500 Mg Tablet PO 1,000 mg TID [facility] Administration Cholecalciferol 25 mcg 10/30/21 09:00 10/30/21 08:36 Cholecalciferol 25 Mcg Tablet PO 25 mcg DAILY [facility] Administration Enoxaparin Sodium 40 mg 10/29/21 09:00 10/30/21 08:36 Enoxaparin 40 Mg/0.4 Ml Syringe SUBQ 40 mg DAILY [facility] Administration Ferrous Sulfate 325 mg 10/30/21 09:00 10/30/21 08:36 Ferrous Sulfate 325 Mg Tablet PO 325 mg DAILY [facility] Administration Levofloxacin 750 mg in 150 mls @ 100 mls/hr 10/29/21 01:00 10/30/21 03:06 Levaquin 750 Mg/150 Ml IV Infused Q24H [facility] Infusion Insulin Aspart 5 unit 10/29/21 17:00 10/30/21 08:53 Insulin Aspart 300 Unit/3 Ml Pen SUBQ 5 unit TIDWM [facility] Administration Insulin Aspart 3 - 11 unit 10/30/21 08:00 10/30/21 08:54 Insulin Aspart 300 Unit/3 Ml Pen SUBQ 9 unit 0800,1200,1700,2100 [facility] Administration Protocol Insulin Glargine 30 unit 10/30/21 08:00 10/30/21 08:56 Insulin Glargine 300 Unit/3 Ml Pen SUBQ 30 unit QDBREAKFAST [facility] Administration Lisinopril 10 mg 10/30/21 09:00 10/30/21 08:37 Lisinopril 20 Mg Tablet PO 10 mg DAILY [facility] Administration Morphine Sulfate 60 mg 10/30/21 09:00 10/30/21 08:51 Morphine Sulfate Er 30 Mg Tablet PO 60 mg Q8H [facility] Administration Non-Formulary Medication 100 mg 10/30/21 09:00 10/30/21 10:31 Cyclosporine, Modified [Cyclosporine Modified] PO Not Given BID [facility] Oxycodone HCl 5 mg 10/29/21 00:33 10/29/21 22:51 Oxycodone 5 Mg Tablet PO 5 mg Q4HR PRN Administration Pain 5 to 7 Sertraline HCl 25 mg 10/30/21 09:00 10/30/21 09:02 Sertraline 50 Mg Tablet PO Not Given DAILY [facility] Sodium Chloride 10 ml 10/29/21 00:33 10/29/21 18:12 Sodium Chloride Flush 0.9% 10 Ml Syringe IVP 10 ml PRN PRN Administration NEEDED PER PROVIDER ORDERS Sodium Chloride 10 ml 10/29/21 01:00 10/30/21 08:38 Sodium Chloride Flush 0.9% 10 Ml Syringe IVP 10 ml 0100,0900,1700 MARTINA Administration - Lab Result Fish Bone Diagrams: 10/30/21 05:37 10/30/21 05:37 - Additional Planning My Orders: My Active Orders 10/29/21 17:00 Insulin Aspart [NovoLOG] 5 unit SUBQ TIDWM 10/30/21 08:00 Insulin Aspart [NovoLOG] 3 - 11 unit SUBQ 0800,1200,1700,2100 Insulin Glargine [Lantus Solostar] 30 unit SUBQ QDBREAKFAST 10/30/21 10:00 Benzocaine/Menthol [Cepacol] 1 lozenge MM Q2HR PRN 10/30/21 10:20 Albuterol 2.5 mg INH RTQ4H PRN 10/30/21 10:21 Nebulizer/MDI Tx. [RC] QID Resp Teach Nebulizer/MDI [RC] .ONCE 10/30/21 12:00 Ipratropium/Albuterol [Duoneb] 3 ml INH Q6HR 10/30/21 21:00 Insulin Glargine [Lantus Solostar] 20 unit SUBQ QPM Subjective - Subjective Patient Reports: Feeling Better, Resting Comfortably, No Complaints Objective Vital Signs: Vital Signs - 24 hr 10/29/21 10/30/21 10/30/21 15:58 00:49 07:58 Temperature 36.9 C 36.7 C 36.4 C L Heart Rate [ 103 H 84 Brachial] Heart Rate [ 102 H Radial] Respiratory 22 20 18 Rate Blood Pressure 142/59 H 100/74 [Left Brachial artery] Blood Pressure 142/71 H [Right Radial artery] O2 Saturation 91 L 95 97 Oxygen O2 Source Oxymizer I&O (Last 24 Hrs): Intake and Output Totals x24h 10/28/21 10/29/21 10/30/21 23:59 23:59 23:59 Intake Total 3112 510 Balance 3112 510 General: Alert, Oriented x3, Cooperative, No acute distress HEENT: Atraumatic Neck: Supple Lymphatic: no adenopathy Neuro: Alert, Non Focal, Oriented Times 3 Cardiovascular: Regular rate, Normal S1, Normal S2 Respiratory: Chest non-tender, No respiratory distress Abdomen: Normal bowel sounds, Soft Extremities: Normal pulses - Results Results: Laboratory Results WBC 10.0 x10^3/uL (4.8-10.8) 10/30/21 05:37 RBC 3.87 10^6/uL (4.20-5.40) L 10/30/21 05:37 Hgb 11.7 g/dL (12.0-16.0) L 10/30/21 05:37 Hct 35.1 % (37.0-47.0) L 10/30/21 05:37 MCV 90.7 fL (81.0-99.0) 10/30/21 05:37 MCH 30.2 pg (27.0-31.0) 10/30/21 05:37 MCHC 33.3 g/dL (32.0-36.0) 10/30/21 05:37 RDW 12.9 % (12.0-15.0) 10/30/21 05:37 Plt Count 195 10^3/uL (130-450) 10/30/21 05:37 MPV 10.7 fL (7.9-10.8) 10/30/21 05:37 Neut # (Auto) Not Reportable 10/30/21 05:37 Lymph # (Auto) Not Reportable 10/30/21 05:37 [place] # (Auto) Not Reportable 10/30/21 05:37 Eos # (Auto) Not Reportable 10/30/21 05:37 Baso # (Auto) Not Reportable 10/30/21 05:37 Absolute Nucleated RBC Not Reportable 10/30/21 05:37 Total Counted 100 10/30/21 05:37 Band Neuts % (Manual) 18 % (0-10) H 10/30/21 05:37 Abnorm Lymph % (Manual) 0 % 10/30/21 05:37 Nucleated RBC % Not Reportable 10/30/21 05:37 Neutrophils # (Manual) 8.8 10^3/uL (1.5-6.6) H 10/30/21 05:37 Lymphocytes # (Manual) 0.6 10^3/uL (1.5-3.5) L 10/30/21 05:37 Monocytes # (Manual) 0.6 10^3/uL (0.0-1.0) 10/30/21 05:37 Eosinophils # (Manual) 0.0 10^3/uL (0-0.7) 10/30/21 05:37 Basophils # (Manual) 0.0 10^3/uL (0-0.1) 10/30/21 05:37 Differential Comment MANUAL DIFFERENTIAL 10/30/21 05:37 Manual Slide Review Indicated 10/28/21 22:17 Platelet Estimate NORMAL (130-450,000) (NORMAL) 10/29/21 05:46 Platelet Morphology NORMAL APPEARANCE (NORMAL) 10/28/21 22:17 RBC Morph Micro Appear NORMAL APPEARANCE (NORMAL) 10/29/21 05:46 Sodium 133 mmol/L (135-145) L 10/30/21 05:37 Potassium 3.4 mmol/L (3.5-5.0) L 10/30/21 05:37 Chloride 97 mmol/L (101-111) L 10/30/21 05:37 Carbon Dioxide 25 mmol/L (21-32) 10/30/21 05:37 Anion Gap 11.0 (6-13) 10/30/21 05:37 BUN 35 mg/dL (6-20) H 10/30/21 05:37 Creatinine 0.9 mg/dL (0.4-1.0) 10/30/21 05:37 Estimated GFR (MDRD) 63 (>89) L 10/30/21 05:37 Glucose 331 mg/dL (70-100) H 10/30/21 05:37 POC Whole Bld Glucose 317 mg/dL (70 - 100) H 10/30/21 07:39 Lactic Acid 1.8 mmol/L (0.5-2.2) 10/28/21 22:17 Calcium 8.4 mg/dL (8.5-10.3) L 10/30/21 05:37 Total Bilirubin 0.6 mg/dL (0.2-1.0) 10/28/21 22:17 AST 17 IU/L (10-42) 10/28/21 22:17 ALT 14 IU/L (10-60) 10/28/21 22:17 Alkaline Phosphatase 65 IU/L (42-121) 10/28/21 22:17 Total Protein 6.8 g/dL (6.7-8.2) 10/28/21 22:17 Albumin 3.1 g/dL (3.2-5.5) L 10/28/21 22:17 Globulin 3.7 g/dL (2.1-4.2) 10/28/21 22:17 Albumin/Globulin Ratio 0.8 (1.0-2.2) L 10/28/21 22:17 Lipase 68 U/L (22-51) H 10/28/21 22:17 TSH 0.24 uIU/mL (0.34-5.60) L 10/28/21 22:17 Free T4 0.83 ng/dL (0.58-1.64) 10/30/21 05:37 Urine Color YELLOW 10/28/21 22:38 Urine Clarity HAZY (CLEAR) 10/28/21 22:38 Urine pH 5.5 PH (5.0-7.5) 10/28/21 22:38 Ur Specific [place] 1.025 (1.002-1.030) 10/28/21 22:38 Urine Protein 100 mg/dL (NEGATIVE) H 10/28/21 22:38 Urine Glucose (UA) >=1000 mg/dL (NEGATIVE) H 10/28/21 22:38 Urine Ketones 15 mg/dL (NEGATIVE) H 10/28/21 22:38 Urine Occult Blood MODERATE (NEGATIVE) H 10/28/21 22:38 Urine Nitrite POSITIVE (NEGATIVE) H 10/28/21 22:38 Urine Bilirubin NEGATIVE (NEGATIVE) 10/28/21 22:38 Urine Urobilinogen 0.2 (NORMAL) E.U./dL (NORMAL) 10/28/21 22:38 Ur Leukocyte Esterase TRACE (NEGATIVE) H 10/28/21 22:38 Urine RBC 0-5 /HPF (0-5) 10/28/21 22:38 Urine WBC 11-25 /HPF (0-5) H 10/28/21 22:38 Ur Squamous Epith Cells FEW Squamous (<= Few) 10/28/21 22:38 Urine Bacteria Moderate /HPF (None Seen) H 10/28/21 22:38 Urine Casts 3-5 Course Granular /LPF3-5 RBC Casts /LPF 10/28/21 22:38 Urine Casts 3-5 Course Granular /LPF3-5 RBC Casts /LPF 10/28/21 22:38 Ur Microscopic Review INDICATED 10/28/21 22:38 Urine Culture Comments INDICATED 10/28/21 22:38 Nasal Adenovirus (PCR) NOT DETECTED 10/28/21 22:05 Nasal B. parapertussis DNA (PCR) NOT DETECTED 10/28/21 22:05 Nasal Coronavir 229E PCR NOT DETECTED 10/28/21 22:05 Nasal Coronavir HKU1 PCR NOT DETECTED 10/28/21 22:05 Nasal Coronavir NL63 PCR NOT DETECTED 10/28/21 22:05 Nasal Coronavir OC43 PCR NOT DETECTED 10/28/21 22:05 Nasal Enterovir/Rhinovir PCR NOT DETECTED 10/28/21 22:05 Nasal Influenza B PCR NOT DETECTED 10/28/21 22:05 Nasal Influenza A PCR NOT DETECTED 10/28/21 22:05 Nasal Parainfluen 1 PCR NOT DETECTED 10/28/21 22:05 Nasal Parainfluen 2 PCR NOT DETECTED 10/28/21 22:05 Nasal Parainfluen 3 PCR NOT DETECTED 10/28/21 22:05 Nasal Parainfluen 4 PCR NOT DETECTED 10/28/21 22:05 Nasal RSV (PCR) NOT DETECTED 10/28/21 22:05 Nasal B.pertussis DNA PCR NOT DETECTED 10/28/21 22:05 Nasal C.pneumoniae (PCR) NOT DETECTED 10/28/21 22:05 Richard Human Metapneumo PCR NOT DETECTED 10/28/21 22:05 Nasal M.pneumoniae (PCR) NOT DETECTED 10/28/21 22:05 Nasal SARS-CoV-2 (PCR) NOT DETECTED 10/28/21 22:05 Urine Opiates Screen POSITIVE (NEGATIVE) H 10/28/21 22:38 Ur Oxycodone Screen NEGATIVE (NEGATIVE) 10/28/21 22:38 Urine Methadone Screen NEGATIVE (NEGATIVE) 10/28/21 22:38 Ur Propoxyphene Screen NEGATIVE (NEGATIVE) 10/28/21 22:38 Ur Barbiturates Screen NEGATIVE (NEGATIVE) 10/28/21 22:38 Ur Tricyclics Screen NEGATIVE (NEGATIVE) 10/28/21 22:38 Ur Phencyclidine Scrn NEGATIVE (NEGATIVE) 10/28/21 22:38 Ur Amphetamine Screen NEGATIVE (NEGATIVE) 10/28/21 22:38 U Methamphetamines Scrn NEGATIVE (NEGATIVE) 10/28/21 22:38 U Benzodiazepines Scrn NEGATIVE (NEGATIVE) 10/28/21 22:38 Urine Cocaine Screen NEGATIVE (NEGATIVE) 10/28/21 22:38 U Cannabinoids Screen NEGATIVE (NEGATIVE) 10/28/21 22:38 Ethyl Alcohol < 5.0 mg/dL 10/28/21 22:17 Serum Ketones SMALL (NEGATIVE) H 10/30/21 05:37 Sepsis Event Note (H) - Evaluation Current Stage of Sepsis: Sepsis Possible source of Sepsis: positive: Genitourinary - Sepsis Criteria Sepsis Criteria: Recorded Temperature greater than 38.3C or Less than 36C, Recorded Heart Rate greater than 90 bpm, Respiratory: Increasing oxygen requirements, [employer]: altered consciousness (unrelated to primary neuro pathology) ABX Reporting Has patient been on IV antibiotics over the past 48 hours?: Yes Current Medications - Current Medications Current Medications: Active Medications Acetaminophen (Acetaminophen 325 Mg Tablet) 650 mg PO Q4HR PRN PRN Reason: Pain 1 to 4 Last Admin: 10/30/21 01:35 Dose: 650 mg Albuterol (Albuterol Neb 2.5 Mg/3 Ml) 2.5 mg INH RTQ4H PRN PRN Reason: Wheezing Albuterol/Ipratropium (Ipratropium/Albuterol 3 Ml Neb) 3 ml INH Q6HR MARTNIA Ascorbic Acid (Ascorbic Acid 500 Mg Tablet) 1,000 mg PO TID [facility] Last Admin: 10/30/21 06:24 Dose: 1,000 mg Cholecalciferol (Cholecalciferol 25 Mcg Tablet) 25 mcg PO DAILY [facility] Last Admin: 10/30/21 08:36 Dose: 25 mcg Enoxaparin Sodium (Enoxaparin 40 Mg/0.4 Ml Syringe) 40 mg SUBQ DAILY [facility] Last Admin: 10/30/21 08:36 Dose: 40 mg Ferrous Sulfate (Ferrous Sulfate 325 Mg Tablet) 325 mg PO DAILY [facility] Last Admin: 10/30/21 08:36 Dose: 325 mg Gabapentin (Gabapentin 100 Mg Capsule) 100 mg PO QPM [facility] Levofloxacin (Levaquin 750 Mg/150 Ml) 750 mg in 150 mls @ 100 mls/hr IV Q24H [facility] Last Infusion: 10/30/21 03:06 Dose: Infused Insulin Aspart (Insulin Aspart 300 Unit/3 Ml Pen) 5 unit SUBQ TIDWM [facility] Last Admin: 10/30/21 11:18 Dose: 5 unit Insulin Aspart (Insulin Aspart 300 Unit/3 Ml Pen) 3 - 11 unit SUBQ 0800,1200,1700,2100 [facility]; Protocol Last Admin: 10/30/21 11:19 Dose: 11 unit Insulin Aspart (Insulin Aspart 300 Unit/3 Ml Pen) 10 unit SUBQ ONCE ONE Stop: 10/30/21 11:35 Insulin Glargine (Insulin Glargine 300 Unit/3 Ml Pen) 30 unit SUBQ QDBREAKFAST [facility] Last Admin: 10/30/21 08:56 Dose: 30 unit Insulin Glargine (Insulin Glargine 300 Unit/3 Ml Pen) 30 unit SUBQ QPM [facility] Lisinopril (Lisinopril 20 Mg Tablet) 10 mg PO DAILY [facility] Last Admin: 10/30/21 08:37 Dose: 10 mg Morphine Sulfate (Morphine Sulfate Er 30 Mg Tablet) 60 mg PO Q8H [facility] Last Admin: 10/30/21 08:51 Dose: 60 mg Non-Formulary Medication (Acitretin [Soriatane]) 25 mg PO DAILY [facility] Non-Formulary Medication (Cyclosporine, Modified [Cyclosporine Modified]) 100 mg PO BID [facility] Last Admin: 10/30/21 10:31 Dose: Not Given Ondansetron HCl (Ondansetron Odt 4 Mg Tablet) 4 mg TL Q6HR PRN PRN Reason: Nausea / Vomiting Ondansetron HCl (Ondansetron 4 Mg/2 Ml Vial) 4 mg IVP Q6HR PRN PRN Reason: Nausea / Vomiting Oxycodone HCl (Oxycodone 5 Mg Tablet) 5 mg PO Q4HR PRN PRN Reason: Pain 5 to 7 Last Admin: 10/29/21 22:51 Dose: 5 mg Saccharomyces Boulardii (Saccharomyces Boulardii 250 Mg Capsule) 250 mg PO BIDWM [facility] Sodium Chloride (Sodium Chloride Flush 0.9% 10 Ml Syringe) 10 ml IVP PRN PRN PRN Reason: NEEDED PER PROVIDER ORDERS Last Admin: 10/29/21 18:12 Dose: 10 ml Sodium Chloride (Sodium Chloride Flush 0.9% 10 Ml Syringe) 10 ml IVP 0100,0900,1700 [facility] Last Admin: 10/30/21 08:38 Dose: 10 ml Throat Lozenges (Benzocaine/Menthol Lozenge) 1 lozenge MM Q2HR PRN PRN Reason: Throat pain Last Admin: 10/30/21 11:15 Dose: 1 lozenge Insulin Aspart [Novolog] 18 - 26 units SQ AC PRN 07/24/13 Lisinopril 10 mg PO DAILY 07/24/13 [place]-3 Fatty Acids/Fish Oil [Fish Oil 1,000 mg Capsule] 1 each PO TID 07/24/13 gemfibroziL [Gemfibrozil] 600 mg PO BID 07/24/13 Insulin Glargine [Lantus Solostar] 60 units SQ DAILY 02/24/17 Ascorbic Acid [Vitamin C] 1,000 mg PO TID 04/27/18 Cholecalciferol (Vitamin D3) [Vitamin D3] 1,000 units PO DAILY 04/27/18 L-Lysine 500 mg PO BID 04/27/18 Magnesium Oxide [Magnesium] 500 mg PO DAILY 04/27/18 Metformin HCl [Glucophage] 1,000 mg PO BID 04/27/18 Morphine Sulfate [Ms Contin] 60 mg PO TID 04/27/18 Tumeric 1,000 mg PO DAILY 04/27/18 Vitamin E (Dl,Tocopheryl Acet) [Vitamin E] 400 units PO DAILY 04/27/18 Hydrocodone/Acetaminophen [Hydrocodon-Acetaminophn 10-325] 1 each PO TID PRN 07/27/18 Acitretin [Soriatane] 25 mg PO DAILY 11/20/18 Cyclosporine, Modified [Cyclosporine Modified] 100 mg PO BID 10/29/21
[2021-10-30] MEDS: SACCHAROMYCES BOULARDII 250 MG CAPSULE PO SCH ×2 (12:16→17:12)
[2021-10-30] MEDS: ACITRETIN 25 MG PO SCH (13:40)
[2021-10-30] MEDS: oxyCODONE 5 MG TABLET PO PRN (13:59)
[2021-10-30 17:42] LABS: ESTIMATED AVERAGE GLUCOSE 151 mg/dL (70-100); HEMOGLOBIN A1c% 6.9 % (4.27-6.07)
[2021-10-30] MEDS: IPRATROPIUM/ALBUTEROL 3 ML NEB INH SCH ×2 (19:23→19:25)
[2021-10-30] MEDS ORDERED: INSULIN GLARGINE 300 UNIT/3 ML PEN SUBQ SCH ×2 (21:00)
[2021-10-30] MEDS: GABAPENTIN 100 MG CAPSULE PO SCH (21:33)
[2021-10-31] MEDS: levoFLOXacin 750 MG/150 ML 750 MG/150 ML BAG IV SCH (01:51)
[2021-10-31] MEDS: MORPHINE SULFATE ER 30 MG TABLET PO SCH ×3 (01:51→17:09)
[2021-10-31] MEDS: SODIUM CHLORIDE FLUSH 0.9% 10 ML SYRINGE IVP SCH ×3 (01:53→17:14)
[2021-10-31] MEDS: IPRATROPIUM/ALBUTEROL 3 ML NEB INH SCH ×4 (02:16→20:31)
[2021-10-31 06:25] LABS: BASOPHILS # (AUTO) 0.1 10^3/uL (0.0-0.1); BASOPHILS % (AUTO) 0.5 %; EOSINOPHILS # (AUTO) 0.1 10^3/uL (0.0-0.7); EOSINOPHILS % (AUTO) 1.2 %; HCT - HEMATOCRIT 32.1 % (37.0-47.0); HGB - HEMOGLOBIN 10.7 g/dL (12.0-16.0); LYMPHOCYTES # (AUTO) 1.2 10^3/uL (1.5-3.5); LYMPHOCYTES % (AUTO) 11.6 %; MEAN CORPUSCULAR HEMOGLOBIN 30.4 pg (27.0-31.0); MEAN CORPUSCULAR HGB CONC 33.3 g/dL (32.0-36.0); MEAN CORPUSCULAR VOLUME 91.2 fL (81.0-99.0); MEAN PLATELET VOLUME 10.9 fL (7.9-10.8); MONOCYTES # (AUTO) 1.2 10^3/uL (0.0-1.0); MONOCYTES % (AUTO) 11.7 %; NEUTROPHILS # (AUTO) 7.4 10^3/uL (1.5-6.6); NEUTROPHILS % (AUTO) 74.1 %; PLT - PLATELET COUNT 187 10^3/uL (130-450); RED BLOOD COUNT 3.52 10^6/uL (4.20-5.40); RED CELL DISTRIBUTION WIDTH 13.1 % (12.0-15.0); WHITE BLOOD COUNT 9.9 x10^3/uL (4.8-10.8)
[2021-10-31] MEDS: ASCORBIC ACID 500 MG TABLET PO SCH ×3 (06:31→21:28)
[2021-10-31 06:34] LABS: CALCIUM 8.1 mg/dL (8.5-10.3); POTASSIUM 3.5 mmol/L (3.5-5.0)
[2021-10-31] MEDS ORDERED: SODIUM CHLORIDE 0.9% 1,000 ML IV SCH ×3 (08:00→09:13)
[2021-10-31] MEDS: INSULIN ASPART 300 UNIT/3 ML PEN SUBQ SCH ×7 (08:50→20:35)
[2021-10-31] MEDS: INSULIN GLARGINE 300 UNIT/3 ML PEN SUBQ SCH ×2 (08:58→20:37)
[2021-10-31] MEDS: lisinopriL 20 MG TABLET PO SCH (08:59)
[2021-10-31] MEDS: SACCHAROMYCES BOULARDII 250 MG CAPSULE PO SCH (09:00)
[2021-10-31] MEDS: FERROUS SULFATE 325 MG TABLET PO SCH (09:01)
[2021-10-31] MEDS: CHOLECALCIFEROL 25 MCG TABLET PO SCH (09:01)
[2021-10-31] MEDS: CYCLOSPORINE MODIFIED 100 MG PO SCH ×2 (09:02→20:38)
[2021-10-31] MEDS: ENOXAPARIN 40 MG/0.4 ML SYRINGE SUBQ SCH (09:02)
[2021-10-31] MEDS: ACITRETIN 25 MG PO SCH (09:02)
[2021-10-31] MEDS: CALCIUM CARBONATE CHEW 500 MG TABLET PO SCH ×2 (10:25→20:37)
--- NOTE | 2021-10-31 11:27 | PROVIDER PROGRESS NOTE ---
Assessment/Plan - Problem List (1) Bacteremia Assessment/Plan: 10/31 pt report she feel better and had good appetite. pt has no more fever, WBC is at normal arrange. repeated blood culture is still pending. If blood culture continue negative as expected, we will reach saddle and harness maker to review pt's ECHO to see if pt has vegatation in her mitral valve. Uptodate consider it is extremely rare to have vegatation with gram negative Klebsiella. continue IV antibiotics 10/30 Both tube of patient's blood culture were positive for gram negative Klebsiella pneumoniae (PCR confirmed), and ECHO study (not KAYE) indicated Echogenic vegatation. blood culture sensitivity study is pending now. pt has no more fever, her mental status has great improved with alert and oriented plus 4, tachycardia is resolved, O2 required is reduced. plan: continue antibiotics and probiotics, repeat blood culture in 48hours (2) Sepsis 10/31 resolved. pt has no more fever, WBC is at normal arrange, pt's AMS was resolved as well, her BP is stable. continue IV antibiotics 10/30 pt has no more fever, her mental status has great improved with alert and oriented plus 4, tachycardia is resolved, O2 required is reduced. her BP is stable. plan: continue antibiotics and probiotics, repeat blood culture in 48hours, blood culture sensitivity study is pending (3) Pyelonephritis Conclusion/Plan: 10/30 improved. pt has no N/V, no more fever, creatinine is 0.9, continue a ntibiotics (4) Metabolic encephalopathy Conclusion/Plan: 10/30 resolved (5) COPD (chronic obstructive pulmonary disease) Conclusion/Plan: 10/31 nurse report her O2 is down to 2lpm, pt has no respiratory distress. pt has hx of COPD per pt's report, she is still at smoking, strongly advise pt quit smoking. continue breath treatment, continue Supplemental oxygen as needed. 10/30 improved. O2 required is reduced. add scheduled Duoneb. since pt has no shown acute COPD exacerbation, hold steroid now. strongly advise pt quit cigarette smoking. CXR reveals mild fluid overloaded, hold IVF, and add once low dosage of Lasix (6) Type 2 diabetes mellitus with hyperglycemia, without long-term current use of insulin Conclusion/Plan: 10/30 glucose is still high. home insulin is confirmed on today. increase her Lantus to her home lantus dosage, and slide scale. continue glucose check ACHS, and hypoglycemia protocol (7) HTN (hypertension) Conclusion/Plan: Her usual home medications and continue to monitor (8) Chronic pain Conclusion/Plan: stable and controlled, continue home pain regimen (9) Hyponatremia Conclusion/Plan: 10/31, Na is 128, slight elevated BUN, and elevated glucose. plan: strict control of glucose level by increased insulin, and start with gentle IV of NS, continue lab monitor Na 133, more control of her elevated hyperglycemia to improve her slight lower sodium (10) KYLIE (acute kidney injury) Conclusion/Plan: creatinine is 0.9, resolved. - Current Meds Current Meds: Current Medications Generic Name Dose Route Start Last Admin Trade Name Freq PRN Reason Stop Dose Admin Acetaminophen 650 mg 10/29/21 00:33 10/30/21 13:59 Acetaminophen 325 Mg Tablet PO 650 mg Q4HR PRN Administration Pain 1 to 4 Albuterol/Ipratropium 3 ml 10/30/21 12:00 10/31/21 06:00 Ipratropium/Albuterol 3 Ml Neb INH 3 ml Q6HR MARTINA Administration Ascorbic Acid 1,000 mg 10/30/21 06:00 10/31/21 06:31 Ascorbic Acid 500 Mg Tablet PO 1,000 mg TID MARTINA Administration Calcium Carbonate/Glycine 500 mg 10/31/21 10:00 10/31/21 10:25 Calcium Carbonate Chew 500 Mg Tablet PO 500 mg BID MARTINA Administration Cholecalciferol 25 mcg 10/30/21 09:00 10/31/21 09:01 Cholecalciferol 25 Mcg Tablet PO 25 mcg DAILY MARTINA Administration Enoxaparin Sodium 40 mg 10/29/21 09:00 10/31/21 09:02 Enoxaparin 40 Mg/0.4 Ml Syringe SUBQ 40 mg DAILY MARTINA Administration Ferrous Sulfate 325 mg 10/30/21 09:00 10/31/21 09:01 Ferrous Sulfate 325 Mg Tablet PO 325 mg DAILY MARTINA Administration Gabapentin 100 mg 10/30/21 21:00 10/30/21 21:33 Gabapentin 100 Mg Capsule PO 100 mg QPM MARTINA Administration Levofloxacin 750 mg in 150 mls @ 100 mls/hr 10/29/21 01:00 10/31/21 02:10 Levaquin 750 Mg/150 Ml IV Infused Q24H MARTINA Infusion Sodium Chloride 1,000 mls @ 75 mls/hr 10/31/21 09:13 10/31/21 09:15 Normal Saline 0.9% IV 10/31/21 22:32 Infused .[id number] MARTINA Infusion Insulin Aspart 5 unit 10/29/21 17:00 10/31/21 08:50 Insulin Aspart 300 Unit/3 Ml Pen SUBQ 5 unit TIDWM MARTINA Administration Insulin Aspart 3 - 11 unit 10/30/21 08:00 10/31/21 08:51 Insulin Aspart 300 Unit/3 Ml Pen SUBQ 5 unit 0800,1200,1700,2100 MARTINA Administration Protocol Insulin Glargine 30 unit 10/30/21 08:00 10/31/21 08:58 Insulin Glargine 300 Unit/3 Ml Pen SUBQ 30 unit QDBREAKFAST MARTINA Administration Lisinopril 10 mg 10/30/21 09:00 10/31/21 08:59 Lisinopril 20 Mg Tablet PO 10 mg DAILY MARTINA Administration Morphine Sulfate 60 mg 10/30/21 09:00 10/31/21 09:01 Morphine Sulfate Er 30 Mg Tablet PO 60 mg Q8H MARTINA Administration Non-Formulary Medication 25 mg 10/30/21 09:00 10/31/21 09:02 Acitretin [Soriatane] PO Not Given DAILY [facility] Non-Formulary Medication 100 mg 10/30/21 09:00 10/31/21 09:02 Cyclosporine, Modified [Cyclosporine Modified] PO Not Given BID MARTINA Oxycodone HCl 5 mg 10/29/21 00:33 10/30/21 13:59 Oxycodone 5 Mg Tablet PO 5 mg Q4HR PRN Administration Pain 5 to 7 Saccharomyces Boulardii 250 mg 10/30/21 11:24 10/31/21 09:00 Saccharomyces Boulardii 250 Mg Capsule PO 250 mg BIDWM MARTINA Administration Sodium Chloride 10 ml 10/29/21 00:33 10/29/21 18:12 Sodium Chloride Flush 0.9% 10 Ml Syringe IVP 10 ml PRN PRN Administration NEEDED PER PROVIDER ORDERS Sodium Chloride 10 ml 10/29/21 01:00 10/31/21 09:02 Sodium Chloride Flush 0.9% 10 Ml Syringe IVP 10 ml 0100,0900,1700 [facility] Administration Throat Lozenges 1 lozenge 10/30/21 10:00 10/30/21 11:15 Benzocaine/Menthol Lozenge MM 1 lozenge Q2HR PRN Administration Throat pain - Lab Result Fish Bone Diagrams: 10/31/21 05:45 10/31/21 05:45 - Additional Planning My Orders: My Active Orders 10/30/21 11:24 Saccharomyces Boulardii [Florastor] 250 mg PO BIDWM 10/30/21 12:00 Ipratropium/Albuterol [Duoneb] 3 ml INH Q6HR 10/30/21 19:05 Blood Culture [CULTURE, BLOOD #1] [RM] Urgent 10/30/21 19:09 Blood Culture [CULTURE, BLOOD #2] [] Urgent 10/31/21 09:13 Sodium Chloride 0.9% [Normal Saline 0.9%] 1,000 ml IV 75 mls/hr 10/31/21 10:00 Calcium Carbonate [Tums] 500 mg PO BID 10/31/21 21:00 Insulin Glargine [Lantus Solostar] 35 unit SUBQ QPM Subjective - Subjective Patient Reports: Feeling Better, Resting Comfortably Objective Vital Signs: Vital Signs - 24 hr 10/30/21 10/30/21 10/31/21 15:50 19:26 00:41 Temperature 36.6 C 37.3 C Heart Rate 98 Heart Rate [ 74 Brachial] Heart Rate [ Monitoring electrodes] Heart Rate [ 85 Radial] Respiratory 24 18 21 Rate Blood Pressure 126/43 L [Left Radial artery] Blood Pressure 111/55 L [Right Brachial artery] O2 Saturation 97 97 10/31/21 10/31/21 06:01 06:15 Temperature 36.9 C Heart Rate 124 H Heart Rate [ Brachial] Heart Rate [ 124 H Monitoring electrodes] Heart Rate [ Radial] Respiratory 22 21 Rate Blood Pressure [Left Radial artery] Blood Pressure 127/47 L [Right Brachial artery] O2 Saturation 98 Oxygen O2 Source Oxymask I&O (Last 24 Hrs): Intake and Output Totals x24h 10/29/21 10/30/21 10/31/21 23:59 23:59 23:59 Intake Total 3112 1736 1010 Balance 3112 1736 1010 General: Alert, Oriented x3, Cooperative, No acute distress HEENT: Atraumatic Neck: Supple Lymphatic: no adenopathy Neuro: Alert, Non Focal, Oriented Times 3 Cardiovascular: Regular rate, Normal S1, Normal S2 Respiratory: Chest non-tender, No respiratory distress Abdomen: Normal bowel sounds, Soft Extremities: Normal pulses - Results Results: Laboratory Results WBC 9.9 x10^3/uL (4.8-10.8) 10/31/21 05:45 RBC 3.52 10^6/uL (4.20-5.40) L 10/31/21 05:45 Hgb 10.7 g/dL (12.0-16.0) L 10/31/21 05:45 Hct 32.1 % (37.0-47.0) L 10/31/21 05:45 MCV 91.2 fL (81.0-99.0) 10/31/21 05:45 MCH 30.4 pg (27.0-31.0) 10/31/21 05:45 MCHC 33.3 g/dL (32.0-36.0) 10/31/21 05:45 RDW 13.1 % (12.0-15.0) 10/31/21 05:45 Plt Count 187 10^3/uL (130-450) 10/31/21 05:45 MPV 10.9 fL (7.9-10.8) H 10/31/21 05:45 Neut # (Auto) 7.4 10^3/uL (1.5-6.6) H 10/31/21 05:45 Lymph # (Auto) 1.2 10^3/uL (1.5-3.5) L 10/31/21 05:45 Price # (Auto) 1.2 10^3/uL (0.0-1.0) H 10/31/21 05:45 Eos # (Auto) 0.1 10^3/uL (0.0-0.7) 10/31/21 05:45 Baso # (Auto) 0.1 10^3/uL (0.0-0.1) 10/31/21 05:45 Absolute Nucleated RBC 0.00 x10^3/uL 10/31/21 05:45 Total Counted 100 10/30/21 05:37 Band Neuts % (Manual) 18 % (0-10) H 10/30/21 05:37 Abnorm Lymph % (Manual) 0 % 10/30/21 05:37 Nucleated RBC % 0.0 /100WBC 10/31/21 05:45 Neutrophils # (Manual) 8.8 10^3/uL (1.5-6.6) H 10/30/21 05:37 Lymphocytes # (Manual) 0.6 10^3/uL (1.5-3.5) L 10/30/21 05:37 Monocytes # (Manual) 0.6 10^3/uL (0.0-1.0) 10/30/21 05:37 Eosinophils # (Manual) 0.0 10^3/uL (0-0.7) 10/30/21 05:37 Basophils # (Manual) 0.0 10^3/uL (0-0.1) 10/30/21 05:37 Differential Comment MANUAL DIFFERENTIAL 10/30/21 05:37 Manual Slide Review Indicated 10/28/21 22:17 Platelet Estimate NORMAL (130-450,000) (NORMAL) 10/29/21 05:46 Platelet Morphology NORMAL APPEARANCE (NORMAL) 10/28/21 22:17 RBC Morph Micro Appear NORMAL APPEARANCE (NORMAL) 10/29/21 05:46 Sodium 128 mmol/L (135-145) L 10/31/21 05:45 Potassium 3.5 mmol/L (3.5-5.0) 10/31/21 05:45 Chloride 93 mmol/L (101-111) L 10/31/21 05:45 Carbon Dioxide 26 mmol/L (21-32) 10/31/21 05:45 Anion Gap 9.0 (6-13) 10/31/21 05:45 BUN 45 mg/dL (6-20) H 10/31/21 05:45 Creatinine 1.0 mg/dL (0.4-1.0) 10/31/21 05:45 Estimated GFR (MDRD) 56 (>89) L 10/31/21 05:45 Glucose 191 mg/dL (70-100) H 10/31/21 05:45 POC Whole Bld Glucose 252 mg/dL (70 - 100) H 10/31/21 11:20 Estimat Average Glucose 151 mg/dL (70-100) H 10/29/21 05:46 Hemoglobin A1c % 6.9 % (4.27-6.07) H 10/29/21 05:46 Lactic Acid 1.8 mmol/L (0.5-2.2) 10/28/21 22:17 Calcium 8.1 mg/dL (8.5-10.3) L 10/31/21 05:45 Total Bilirubin 0.6 mg/dL (0.2-1.0) 10/28/21 22:17 AST 17 IU/L (10-42) 10/28/21 22:17 ALT 14 IU/L (10-60) 10/28/21 22:17 Alkaline Phosphatase 65 IU/L (42-121) 10/28/21 22:17 Total Protein 6.8 g/dL (6.7-8.2) 10/28/21 22:17 Albumin 3.1 g/dL (3.2-5.5) L 10/28/21 22:17 Globulin 3.7 g/dL (2.1-4.2) 10/28/21 22:17 Albumin/Globulin Ratio 0.8 (1.0-2.2) L 10/28/21 22:17 Lipase 68 U/L (22-51) H 10/28/21 22:17 TSH 0.24 uIU/mL (0.34-5.60) L 10/28/21 22:17 Free T4 0.83 ng/dL (0.58-1.64) 10/30/21 05:37 Urine Color YELLOW 10/28/21 22:38 Urine Clarity HAZY (CLEAR) 10/28/21 22:38 Urine pH 5.5 PH (5.0-7.5) 10/28/21 22:38 Ur Specific [place] 1.025 (1.002-1.030) 10/28/21 22:38 Urine Protein 100 mg/dL (NEGATIVE) H 10/28/21 22:38 Urine Glucose (UA) >=1000 mg/dL (NEGATIVE) H 10/28/21 22:38 Urine Ketones 15 mg/dL (NEGATIVE) H 10/28/21 22:38 Urine Occult Blood MODERATE (NEGATIVE) H 10/28/21 22:38 Urine Nitrite POSITIVE (NEGATIVE) H 10/28/21 22:38 Urine Bilirubin NEGATIVE (NEGATIVE) 10/28/21 22:38 Urine Urobilinogen 0.2 (NORMAL) E.U./dL (NORMAL) 10/28/21 22:38 Ur Leukocyte Esterase TRACE (NEGATIVE) H 10/28/21 22:38 Urine RBC 0-5 /HPF (0-5) 10/28/21 22:38 Urine WBC 11-25 /HPF (0-5) H 10/28/21 22:38 Ur Squamous Epith Cells FEW Squamous (<= Few) 10/28/21 22:38 Urine Bacteria Moderate /HPF (None Seen) H 10/28/21 22:38 Urine Casts 3-5 Course Granular /LPF3-5 RBC Casts /LPF 10/28/21 22:38 Urine Casts 3-5 Course Granular /LPF3-5 RBC Casts /LPF 10/28/21 22:38 Ur Microscopic Review INDICATED 10/28/21 22:38 Urine Culture Comments INDICATED 10/28/21 22:38 Nasal Adenovirus (PCR) NOT DETECTED 10/28/21 22:05 Nasal B. parapertussis DNA (PCR) NOT DETECTED 10/28/21 22:05 Nasal Coronavir 229E PCR NOT DETECTED 10/28/21 22:05 Nasal Coronavir HKU1 PCR NOT DETECTED 10/28/21 22:05 Nasal Coronavir NL63 PCR NOT DETECTED 10/28/21 22:05 Nasal Coronavir OC43 PCR NOT DETECTED 10/28/21 22:05 Nasal Enterovir/Rhinovir PCR NOT DETECTED 10/28/21 22:05 Nasal Influenza B PCR NOT DETECTED 10/28/21 22:05 Nasal Influenza A PCR NOT DETECTED 10/28/21 22:05 Nasal Parainfluen 1 PCR NOT DETECTED 10/28/21 22:05 Nasal Parainfluen 2 PCR NOT DETECTED 10/28/21 22:05 Nasal Parainfluen 3 PCR NOT DETECTED 10/28/21 22:05 Nasal Parainfluen 4 PCR NOT DETECTED 10/28/21 22:05 Nasal RSV (PCR) NOT DETECTED 10/28/21 22:05 Nasal B.pertussis DNA PCR NOT DETECTED 10/28/21 22:05 Nasal C.pneumoniae (PCR) NOT DETECTED 10/28/21 22:05 Richard Human Metapneumo PCR NOT DETECTED 10/28/21 22:05 Nasal M.pneumoniae (PCR) NOT DETECTED 10/28/21 22:05 Nasal SARS-CoV-2 (PCR) NOT DETECTED 10/28/21 22:05 Urine Opiates Screen POSITIVE (NEGATIVE) H 10/28/21 22:38 Ur Oxycodone Screen NEGATIVE (NEGATIVE) 10/28/21 22:38 Urine Methadone Screen NEGATIVE (NEGATIVE) 10/28/21 22:38 Ur Propoxyphene Screen NEGATIVE (NEGATIVE) 10/28/21 22:38 Ur Barbiturates Screen NEGATIVE (NEGATIVE) 10/28/21 22:38 Ur Tricyclics Screen NEGATIVE (NEGATIVE) 10/28/21 22:38 Ur Phencyclidine Scrn NEGATIVE (NEGATIVE) 10/28/21 22:38 Ur Amphetamine Screen NEGATIVE (NEGATIVE) 10/28/21 22:38 U Methamphetamines Scrn NEGATIVE (NEGATIVE) 10/28/21 22:38 U Benzodiazepines Scrn NEGATIVE (NEGATIVE) 10/28/21 22:38 Urine Cocaine Screen NEGATIVE (NEGATIVE) 10/28/21 22:38 U Cannabinoids Screen NEGATIVE (NEGATIVE) 10/28/21 22:38 Ethyl Alcohol < 5.0 mg/dL 10/28/21 22:17 Serum Ketones SMALL (NEGATIVE) H 10/30/21 05:37 Sepsis Event Note (H) - Evaluation Current Stage of Sepsis: Sepsis Possible source of Sepsis: positive: Genitourinary - Sepsis Criteria Sepsis Criteria: Recorded Temperature greater than 38.3C or Less than 36C, Recorded Heart Rate greater than 90 bpm, Respiratory: Increasing oxygen requirements, ELECTRICAL [employer] INSTRUMENT [employer]CH[employer]IC: altered consciousness (unrelated to primary neuro pathology) ABX Reporting Has patient been on IV antibiotics over the past 48 hours?: Yes Current Medications - Current Medications Current Medications: Active Medications Acetaminophen (Acetaminophen 325 Mg Tablet) 650 mg PO Q4HR PRN PRN Reason: Pain 1 to 4 Last Admin: 10/30/21 13:59 Dose: 650 mg Albuterol (Albuterol Neb 2.5 Mg/3 Ml) 2.5 mg INH RTQ4H PRN PRN Reason: Wheezing Albuterol/Ipratropium (Ipratropium/Albuterol 3 Ml Neb) [address] [facility] Last Admin: 10/31/21 13:18 Dose: Not Given Ascorbic Acid (Ascorbic Acid 500 Mg Tablet) 1,[address] [facility] Last Admin: 10/31/21 14:09 Dose: 1,000 mg Calcium Carbonate/Glycine (Calcium Carbonate Chew 500 Mg Tablet) [address] [facility] Last Admin: 10/31/21 10:25 Dose: 500 mg Cholecalciferol (Cholecalciferol 25 Mcg Tablet) [address] [facility] Last Admin: 10/31/21 09:01 Dose: 25 mcg Enoxaparin Sodium (Enoxaparin 40 Mg/0.4 Ml Syringe) [address] [facility] Last Admin: 10/31/21 09:02 Dose: 40 mg Ferrous Sulfate (Ferrous Sulfate 325 Mg Tablet) [address] [facility] Last Admin: 10/31/21 09:01 Dose: 325 mg Gabapentin (Gabapentin 100 Mg Capsule) [address] [facility] Last Admin: 10/30/21 21:33 Dose: 100 mg Levofloxacin (Levaquin 750 Mg/150 Ml) 750 mg in 150 mls @ 100 mls/hr IV Q24H [facility] Last Infusion: 10/31/21 02:10 Dose: Infused Sodium Chloride (Normal Saline 0.9%) 1,000 mls @ 75 mls/hr IV .[id number] [facility] Stop: 10/31/21 22:32 Last Infusion: 10/31/21 09:15 Dose: Infused Insulin Aspart (Insulin Aspart 300 Unit/3 Ml Pen) 3 - 11 unit SUBQ 0800,1200,1700,2100 [facility]; Protocol Last Admin: 10/31/21 12:07 Dose: 7 unit Insulin Aspart (Insulin Aspart 300 Unit/3 Ml Pen) [address] [facility] Last Admin: 10/31/21 12:08 Dose: 8 unit Insulin Glargine (Insulin Glargine 300 Unit/3 Ml Pen) [address] [facility] Last Admin: 10/31/21 08:58 Dose: 30 unit Insulin Glargine (Insulin Glargine 300 Unit/3 Ml Pen) [address] [facility] Lisinopril (Lisinopril 20 Mg Tablet) [address] [facility] Last Admin: 10/31/21 08:59 Dose: 10 mg Morphine Sulfate (Morphine Sulfate Er 30 Mg Tablet) [address] [facility] Last Admin: 10/31/21 09:01 Dose: 60 mg Non-Formulary Medication (Acitretin [Soriatane]) [address] [facility] Last Admin: 10/31/21 09:02 Dose: Not Given Non-Formulary Medication (Cyclosporine, Modified [Cyclosporine Modified]) [address] [facility] Last Admin: 10/31/21 09:02 Dose: Not Given Ondansetron HCl (Ondansetron Odt 4 Mg Tablet) 4 mg TL Q6HR PRN PRN Reason: Nausea / Vomiting Ondansetron HCl (Ondansetron 4 Mg/2 Ml Vial) 4 mg IVP Q6HR PRN PRN Reason: Nausea / Vomiting Oxycodone HCl (Oxycodone 5 Mg Tablet) 5 mg PO Q4HR PRN PRN Reason: Pain 5 to 7 Last Admin: 10/30/21 13:59 Dose: 5 mg Saccharomyces Boulardii (Saccharomyces Boulardii 250 Mg Capsule) [address] [facility] Last Admin: 10/31/21 09:00 Dose: 250 mg Sodium Chloride (Sodium Chloride Flush 0.9% 10 Ml Syringe) 10 ml IVP PRN PRN PRN Reason: NEEDED PER PROVIDER ORDERS Last Admin: 10/29/21 18:12 Dose: 10 ml Sodium Chloride (Sodium Chloride Flush 0.9% 10 Ml Syringe) 10 ml IVP 0100,0900, 1700 [facility] Last Admin: 10/31/21 09:02 Dose: 10 ml Throat Lozenges (Benzocaine/Menthol Lozenge) 1 lozenge MM Q2HR PRN PRN Reason: Throat pain Last Admin: 10/30/21 11:15 Dose: 1 lozenge Insulin Aspart [Novolog] 18 - 26 units SQ AC PRN 07/24/13 Lisinopril 10 mg PO DAILY 07/24/13 [place]-3 Fatty Acids/Fish Oil [Fish Oil 1,000 mg Capsule] 1 each PO TID 07/24/13 gemfibroziL [Gemfibrozil] 600 mg PO BID 07/24/13 Insulin Glargine [Lantus Solostar] 60 units SQ DAILY 02/24/17 Ascorbic Acid [Vitamin C] 1,000 mg PO TID 04/27/18 Cholecalciferol (Vitamin D3) [Vitamin D3] 1,000 units PO DAILY 04/27/18 L-Lysine 500 mg PO BID 04/27/18 Magnesium Oxide [Magnesium] 500 mg PO DAILY 04/27/18 Metformin HCl [Glucophage] 1,000 mg PO BID 04/27/18 Morphine Sulfate [Ms Contin] 60 mg PO TID 04/27/18 Tumeric 1,000 mg PO DAILY 04/27/18 Vitamin E (Dl,Tocopheryl Acet) [Vitamin E] 400 units PO DAILY 04/27/18 Hydrocodone/Acetaminophen [Hydrocodon-Acetaminophn 10-325] 1 each PO TID PRN 07/27/18 Acitretin [Soriatane] 25 mg PO DAILY 11/20/18 Cyclosporine, Modified [Cyclosporine Modified] 100 mg PO BID 10/29/21
[2021-10-31] MEDS: GABAPENTIN 100 MG CAPSULE PO SCH (20:37)
[2021-10-31] MEDS: oxyCODONE 5 MG TABLET PO PRN (20:41)
[2021-11-01] MEDS: SODIUM CHLORIDE FLUSH 0.9% 10 ML SYRINGE IVP SCH ×3 (00:51→17:29)
[2021-11-01] MEDS: levoFLOXacin 750 MG/150 ML 750 MG/150 ML BAG IV SCH (00:51)
[2021-11-01] MEDS: MORPHINE SULFATE ER 30 MG TABLET PO SCH ×3 (00:51→17:27)
[2021-11-01] MEDS: IPRATROPIUM/ALBUTEROL 3 ML NEB INH SCH ×4 (04:12→18:20)
[2021-11-01 05:50] LABS: BASOPHILS % (AUTO) 0.6 %; EOSINOPHILS % (AUTO) 1.3 %; HCT - HEMATOCRIT 30.3 % (37.0-47.0); HGB - HEMOGLOBIN 9.9 g/dL (12.0-16.0); LYMPHOCYTES % (AUTO) 18.8 %; MEAN CORPUSCULAR HEMOGLOBIN 30.1 pg (27.0-31.0); MEAN CORPUSCULAR HGB CONC 32.7 g/dL (32.0-36.0); MEAN CORPUSCULAR VOLUME 92.1 fL (81.0-99.0); MEAN PLATELET VOLUME 10.6 fL (7.9-10.8); MONOCYTES % (AUTO) 10.3 %; NEUTROPHILS % (AUTO) 67.7 %; PLT - PLATELET COUNT 198 10^3/uL (130-450); RED BLOOD COUNT 3.29 10^6/uL (4.20-5.40); RED CELL DISTRIBUTION WIDTH 13.1 % (12.0-15.0); WHITE BLOOD COUNT 8.4 x10^3/uL (4.8-10.8)
[2021-11-01 05:55] LABS: CALCIUM 8.8 mg/dL (8.5-10.3); CREATININE 0.9 mg/dL (0.4-1.0); POTASSIUM 3.5 mmol/L (3.5-5.0)
[2021-11-01] MEDS: ASCORBIC ACID 500 MG TABLET PO SCH ×3 (05:56→21:22)
[2021-11-01 06:03] LABS: BAND NEUTROPHILS % (MANUAL) 0 %
[2021-11-01 06:19] LABS: ABNORMAL LYMPHS % (MANUAL) 1 %; DIFFERENTIAL COMMENT MANUAL DIFFERENTIAL; EOSINOPHILS # (MANUAL) 0.1 10^3/uL (0-0.7); LYMPHOCYTES # (MANUAL) 1.2 10^3/uL (1.5-3.5); LYMPHOCYTES % (MANUAL) 13 %; MONOCYTES # (MANUAL) 0.9 10^3/uL (0.0-1.0); NEUTROPHILS # (MANUAL) 6.2 10^3/uL (1.5-6.6); PLATELET ESTIMATE, MANUAL NORMAL (130-450,000) (NORMAL); PLATELET MORPHOLOGY NORMAL APPEARANCE (NORMAL); RBC MORPHOLOGY (MULTIPLE) NORMAL APPEARANCE (NORMAL); WBC MORPHOLOGY (MULTIPLE) NORMAL APPEARANCE (NORMAL)
[2021-11-01] MEDS ORDERED: CYANOCOBALAMIN 1,000 MCG/ML VIAL IM ONE (07:21)
[2021-11-01] MEDS: CHOLECALCIFEROL 25 MCG TABLET PO SCH (08:03)
[2021-11-01] MEDS: FERROUS SULFATE 325 MG TABLET PO SCH (08:03)
[2021-11-01] MEDS: ENOXAPARIN 40 MG/0.4 ML SYRINGE SUBQ SCH (08:03)
[2021-11-01] MEDS: lisinopriL 20 MG TABLET PO SCH (08:04)
[2021-11-01] MEDS: ACITRETIN 25 MG PO SCH (08:08)
[2021-11-01] MEDS: CYCLOSPORINE MODIFIED 100 MG PO SCH ×2 (08:08→21:33)
[2021-11-01] MEDS: INSULIN ASPART 300 UNIT/3 ML PEN SUBQ SCH ×7 (08:09→21:20)
[2021-11-01] MEDS: INSULIN GLARGINE 300 UNIT/3 ML PEN SUBQ SCH ×2 (08:10→21:21)
[2021-11-01 08:17] LABS: ABSOLUTE RETICS # AUTO 0.045 10^6/uL (0.020-0.110); RED BLOOD COUNT 3.37 10^6/uL (4.20-5.40); RETICULOCYTE COUNT % (AUTO) 1.33 % (0.5-2.3)
[2021-11-01 08:54] LABS: FERRITIN 316.5 ng/mL (11.0-306.8)
[2021-11-01 08:58] LABS: % IRON SATURATION 22 % (20-50); IRON 40 ug/dL (28-170); TOTAL IRON BINDING CAPACITY 178 ug/dL (250-450); TRANSFERRIN 127 mg/dL (192-382)
[2021-11-01] MEDS: CALCIUM CARBONATE CHEW 500 MG TABLET PO SCH ×2 (09:10→21:22)
--- NOTE | 2021-11-01 11:38 | XRAY Report ---
PROCEDURE: Chest 1 View X-Ray INDICATIONS: Short of breath TECHNIQUE: One view of the chest was acquired. COMPARISON: 10/29/2021, 10/28/2021 FINDINGS: Surgical changes and devices: None. Lungs and pleura: No pleural effusions or pneumothorax. Mild generalized interstitial process can be seen, which is improved compared to the 10/29/2021 examination. Mediastinum: The aorta is prominent and tortuous. The cardiac contours are within normal limits. Bones and chest wall: No suspicious bony lesions. Age-appropriate degenerative changes are seen. Mi ld dextroconvex scoliotic curvature is seen. Overlying soft tissues appear unremarkable. IMPRESSION: Improved interstitial infiltrates compared to 10/29/2021. Reviewed by: Patrick Francis MD on 11/01/2021 10:37 AM [facility] Approved by: Patrick Francis MD on 11/01/2021 10:37 AM [facility] Station ID: [id number]
[2021-11-01] MEDS: FUROSEMIDE 20 MG TABLET PO SCH (14:30)
--- NOTE | 2021-11-01 14:32 | PROVIDER PROGRESS NOTE ---
Assessment/Plan - Problem List (1) Bacteremia Assessment/Plan: 11/[address] Denis COELLO at . she believe Klebsiella pneumoniae gram negative bacteria is rarely causing vegatation, clinic pt has significantly improved and repeat blood culture is negative, it is unlikely pt has vegatation. 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 I called physician who read pt's ECHO, unfortunately nobody answered the phone. Clinically pt had significantly improved. she had no fever, WBC is at normal arrange, she feel better. Repeat blood culture is negative for bacteremia. Sw itch to PO Levoquin and continue total two weeks for bacteremia. 10/31 pt report she feel better and had good appetite. pt has no more fever, WBC is at normal arrange. repeated blood culture is still pending. If blood culture continue negative as expected, we will reach replanter to review pt's ECHO to see if pt has vegatation in her mitral valve. Uptodate consider it is extremely rare to have vegatation with gram negative Klebsiella. continue IV antibiotics 10/30 Both tube of patient's blood culture were positive for gram negative Klebsiella pneumoniae (PCR confirmed), and ECHO study (not KAYE) indicated Echogenic vegatation. blood culture sensitivity study is pending now. pt has no more fever, her mental status has great improved with alert and oriented plus 4, tachycardia is resolved, O2 required is reduced. plan: continue antibiotics and probiotics, repeat blood culture in 48hours (2) Sepsis 10/31 resolved. pt has no more fever, WBC is at normal arrange, pt's AMS was resolved as well, her BP is stable. continue IV antibiotics 10/30 pt has no more fever, her mental status has great improved with alert and oriented plus 4, tachycardia is resolved, O2 required is reduced. her BP is stable. plan: continue antibiotics and probiotics, repeat blood culture in 48hours, blood culture sensitivity study is pending (3) Pyelonephritis Conclusion/Plan: 10/30 improved. pt has no N/V, no more fever, creatinine is 0.9, continue antibiotics (4) Metabolic encephalopathy Conclusion/Plan: 10/30 resolved (5)hypoxia 11/01 pt report she still feel shortness of breath, special at exertion. pt had O2 desat study, pt still need 3 liter of O2 at rest and 4 liter of O2 at exertion with 90% and tachycardia. CXR reveals improved but still present interstitial process. add pulmicort and lasix, continue albuterol and Duoneb, supplement of O2 as needed, continue Levoquin (6) COPD (chronic obstructive pulmonary disease) Conclusion/Plan: 11/01 pt has hx of COPD, still at smoking. pt does not present obvious wheezing, likely not on exacerbation. add pulmicort and lasix, continue albuterol and Duoneb, supplement of O2 as needed, continue Levoquin 10/31 nurse report her O2 is down to 2lpm, pt has no respiratory distress. pt has hx of COPD per pt's report, she is still at smoking, strongly advise pt quit smoking. continue breath treatment, continue Supplemental oxygen as needed. 10/30 improved. O2 required is reduced. add scheduled Duoneb. since pt has no shown acute COPD exacerbation, hold steroid now. strongly advise pt quit cigarette smoking. CXR reveals mild fluid overloaded, hold IVF, and add once low dosage of Lasix (7) Type 2 diabetes mellitus with hyperglycemia, without long-term current use of insulin Conclusion/Plan: 10/30 glucose is still high. home insulin is confirmed on today. increase her Lantus to her home lantus dosage, and slide scale. continue glucose check ACHS, and hypoglycemia protocol (8) HTN (hypertension) Conclusion/Plan: Her usual home medications and continue to monitor (9) Chronic pain Conclusion/Plan: stable and controlled, continue home pain regimen (10) Hyponatremia Conclusion/Plan: 11/01 improved Na 133 10/31, Na is 128, slight elevated BUN, and elevated glucose. plan: strict control of glucose level by increased insulin, and start with gentle IV of NS, continue lab monitor Na 133, more control of her elevated hyperglycemia to improve her slight lower sodium (11) KYLIE (acute kidney injury) Conclusion/Plan: creatinine is 0.9, resolved. - Current Meds Current Meds: Current Medications Generic Name Dose Route Start Last Admin Trade Name Freq PRN Reason Stop Dose Admin Acetaminophen 650 mg 10/29/21 00:33 10/30/21 13:59 Acetaminophen 325 Mg Tablet PO 650 mg Q4HR PRN Administration Pain 1 to 4 Albuterol/Ipratropium 3 ml 10/30/21 12:00 11/01/21 13:41 Ipratropium/Albuterol 3 Ml Neb INH 3 ml Q6HR MARTINA Administration Ascorbic Acid 1,000 mg 10/30/21 06:00 11/01/21 14:23 Ascorbic Acid 500 Mg Tablet PO 1,000 mg TID MARTINA Administration Cholecalciferol 25 mcg 10/30/21 09:00 11/01/21 08:03 Cholecalciferol 25 Mcg Tablet PO 25 mcg DAILY MARTINA Administration Enoxaparin Sodium 40 mg 10/29/21 09:00 11/01/21 08:03 Enoxaparin 40 Mg/0.4 Ml Syringe SUBQ 40 mg DAILY MARTINA Administration Gabapentin 100 mg 10/30/21 21:00 10/31/21 20:37 Gabapentin 100 Mg Capsule PO 100 mg QPM MARTINA Administration Insulin Aspart 3 - 11 unit 10/30/21 08:00 11/01/21 11:50 Insulin Aspart 300 Unit/3 Ml Pen SUBQ 5 unit 0800,1200,1700,2100 MARTINA Administration Protocol Insulin Aspart 8 unit 10/31/21 13:00 11/01/21 11:50 Insulin Aspart 300 Unit/3 Ml Pen SUBQ 8 unit TIDWM [facility] Administration Insulin Glargine 30 unit 10/30/21 08:00 11/01/21 08:10 Insulin Glargine 300 Unit/3 Ml Pen SUBQ 30 unit QDBREAKFAST [facility] Administration Insulin Glargine 35 unit 10/31/21 21:00 10/31/21 20:37 Insulin Glargine 300 Unit/3 Ml Pen SUBQ 35 unit QPM MARTINA Administration Lisinopril 10 mg 10/30/21 09:00 11/01/21 08:04 Lisinopril 20 Mg Tablet PO 10 mg DAILY [facility] Administration Morphine Sulfate 60 mg 10/30/21 09:00 11/01/21 08:03 Morphine Sulfate Er 30 Mg Tablet PO 60 mg Q8H [facility] Administration Non-Formulary Medication 25 mg 10/30/21 09:00 11/01/21 08:08 Acitretin [Soriatane] PO Not Given DAILY [facility] Non-Formulary Medication 100 mg 10/30/21 09:00 11/01/21 08:08 Cyclosporine, Modified [Cyclosporine Modified] PO Not Given BID [facility] Oxycodone HCl 5 mg 10/29/21 00:33 10/31/21 20:41 Oxycodone 5 Mg Tablet PO 5 mg Q4HR PRN Administration Pain 5 to 7 Sodium Chloride 10 ml 10/29/21 00:33 10/29/21 18:12 Sodium Chloride Flush 0.9% 10 Ml Syringe IVP 10 ml PRN PRN Administration NEEDED PER PROVIDER ORDERS Sodium Chloride 10 ml 10/29/21 01:00 11/01/21 08:08 Sodium Chloride Flush 0.9% 10 Ml Syringe IVP 10 ml 0100,0900,1700 MARTINA Administration Throat Lozenges 1 lozenge 10/30/21 10:00 10/30/21 11:15 Benzocaine/Menthol Lozenge MM 1 lozenge Q2HR PRN Administration Throat pain - Lab Result Fish Bone Diagrams: 11/01/21 04:27 11/01/21 04:27 - Additional Planning My Orders: My Active Orders 10/31/21 21:00 Insulin Glargine [Lantus Solostar] 35 unit SUBQ QPM 11/01/21 FECAL OCCULT BLOOD (FIT) Urgent Evaluate and Treat OT [OT] Routine Evaluate and Treat PT [PT] Routine 11/01/21 11:54 Oxygen Desat. Study w/Exercise [RC] .ONCE 11/01/21 14:23 Furosemide [Lasix] 20 mg PO DAILY 11/01/21 14:24 Nebulizer/MDI Tx. [RC] QID Resp Teach Nebulizer/MDI [RC] .ONCE Budesonide [Pulmicort] 0.5 mg INH RTBID 11/01/21 21:00 Calcium Carbonate [Tums] 500 mg PO 1200,2100 11/02/21 09:00 levoFLOXacin [Levaquin] 750 mg PO DAILY Subjective - Subjective Patient Reports: Feeling Better Objective Vital Signs: Vital Signs - 24 hr 10/31/21 10/31/21 11/01/21 16:00 20:30 00:00 Temperature 37.6 C 37.5 C Heart Rate 80 Heart Rate [ Activity] Heart Rate [ 83 96 Brachial] Respiratory 20 20 20 Rate Blood Pressure [Activity] Blood Pressure 92/60 [Left Radial artery] Blood Pressure 157/49 H [Right Brachial artery] O2 Saturation 92 78 L 11/01/21 11/01/21 11/01/21 06:14 08:00 10:05 Temperature 37.0 C Heart Rate 86 Heart Rate [ 88 Activity] Heart Rate [ 88 Brachial] Respiratory 20 18 Rate Blood Pressure 141/44 H [Activity] Blood Pressure [Left Radial artery] Blood Pressure 122/58 L [Right Brachial artery] O2 Saturation 93 11/01/21 13:39 Temperature Heart Rate 111 H Heart Rate [ Activity] Heart Rate [ Brachial] Respiratory 18 Rate Blood Pressure [Activity] Blood Pressure [Left Radial artery] Blood Pressure [Right Brachial artery] O2 Saturation Oxygen O2 Source Nasal cannula I&O (Last 24 Hrs): Intake and Output Totals x24h 10/30/21 10/31/21 11/01/21 23:59 23:59 23:59 Intake Total 1736 1471 415 Balance 1736 1471 415 General: Alert, Cooperative, No acute distress HEENT: Atraumatic Neck: Supple Lymphatic: no adenopathy Neuro: Alert, Non Focal, Oriented Times 3 Cardiovascular: Regular rate, Normal S1, Normal S2 Respiratory: Chest non-tender, No respiratory distress Abdomen: Normal bowel sounds, Soft Extremities: Normal pulses - Results Results: Laboratory Results WBC 8.4 x10^3/uL (4.8-10.8) 11/01/21 04:27 RBC 3.29 10^6/uL (4.20-5.40) L 11/01/21 04:27 RBC 3.37 10^6/uL (4.20-5.40) L 11/01/21 04:27 Hgb 9.9 g/dL (12.0-16.0) L 11/01/21 04:27 Hct 30.3 % (37.0-47.0) L 11/01/21 04:27 MCV 92.1 fL (81.0-99.0) 11/01/21 04:27 MCH 30.1 pg (27.0-31.0) 11/01/21 04:27 MCHC 32.7 g/dL (32.0-36.0) 11/01/21 04:27 RDW 13.1 % (12.0-15.0) 11/01/21 04:27 Plt Count 198 10^3/uL (130-450) 11/01/21 04:27 MPV 10.6 fL (7.9-10.8) 11/01/21 04:27 Reticulocyte % (Auto) 1.33 % (0.5-2.3) 11/01/21 04:27 Neut # (Auto) Not Reportable 11/01/21 04:27 Lymph # (Auto) Not Reportable 11/01/21 04:27 [place] # (Auto) Not Reportable 11/01/21 04:27 Eos # (Auto) Not Reportable 11/01/21 04:27 Baso # (Auto) Not Reportable 11/01/21 04:27 Absolute Nucleated RBC Not Reportable 11/01/21 04:27 Total Counted 100 11/01/21 04:27 Band Neuts % (Manual) 0 % (0-10) 11/01/21 04:27 Abnorm Lymph % (Manual) 1 % 11/01/21 04:27 Nucleated RBC % Not Reportable 11/01/21 04:27 Neutrophils # (Manual) 6.2 10^3/uL (1.5-6.6) 11/01/21 04:27 Lymphocytes # (Manual) 1.2 10^3/uL (1.5-3.5) L 11/01/21 04:27 Monocytes # (Manual) 0.9 10^3/uL (0.0-1.0) 11/01/21 04:27 Eosinophils # (Manual) 0.1 10^3/uL (0-0.7) 11/01/21 04:27 Basophils # (Manual) 0.0 10^3/uL (0-0.1) 11/01/21 04:27 Differential Comment MANUAL DIFFERENTIAL 11/01/21 04:27 Manual Slide Review Indicated 10/28/21 22:17 WBC Morphology NORMAL APPEARANCE (NORMAL) 11/01/21 04:27 Platelet Estimate NORMAL (130-450,000) (NORMAL) 11/01/21 04:27 Platelet Morphology NORMAL APPEARANCE (NORMAL) 11/01/21 04:27 RBC Morph Micro Appear NORMAL APPEARANCE (NORMAL) 11/01/21 04:27 Absolute Retic 0.045 10^6/uL (0.020-0.110) 11/01/21 04:27 Sodium 133 mmol/L (135-145) L 11/01/21 04:27 Potassium 3.5 mmol/L (3.5-5.0) 11/01/21 04:27 Chloride 96 mmol/L (101-111) L 11/01/21 04:27 Carbon Dioxide 28 mmol/L (21-32) 11/01/21 04:27 Anion Gap 9.0 (6-13) 11/01/21 04:27 BUN 38 mg/dL (6-20) H 11/01/21 04:27 Creatinine 0.9 mg/dL (0.4-1.0) 11/01/21 04:27 Estimated GFR (MDRD) 63 (>89) L 11/01/21 04:27 Glucose 134 mg/dL (70-100) H 11/01/21 04:27 POC Whole Bld Glucose 201 mg/dL (70 - 100) H 11/01/21 11:41 Estimat Average Glucose 151 mg/dL (70-100) H 10/29/21 05:46 Hemoglobin A1c % 6.9 % (4.27-6.07) H 10/29/21 05:46 Lactic Acid 1.8 mmol/L (0.5-2.2) 10/28/21 22:17 Calcium 8.8 mg/dL (8.5-10.3) 11/01/21 04:27 Iron 40 ug/dL (28-170) 11/01/21 04:27 TIBC 178 ug/dL (250-450) L 11/01/21 04:27 % Saturation 22 % (20-50) 11/01/21 04:27 Transferrin 127 mg/dL (192-382) L 11/01/21 04:27 Ferritin 316.5 ng/mL (11.0-306.8) H 11/01/21 04:27 Total Bilirubin 0.6 mg/dL (0.2-1.0) 10/28/21 22:17 AST 17 IU/L (10-42) 10/28/21 22:17 ALT 14 IU/L (10-60) 10/28/21 22:17 Alkaline Phosphatase 65 IU/L (42-121) 10/28/21 22:17 Lactate Dehydrogenase 138 IU/L (91-225) 11/01/21 04:27 Total Protein 6.8 g/dL (6.7-8.2) 10/28/21 22:17 Albumin 3.1 g/dL (3.2-5.5) L 10/28/21 22:17 Globulin 3.7 g/dL (2.1-4.2) 10/28/21 22:17 Albumin/Globulin Ratio 0.8 (1.0-2.2) L 10/28/21 22:17 Lipase 68 U/L (22-51) H 10/28/21 22:17 Vitamin B12 68 pg/mL (180-914) L 11/01/21 04:27 TSH 0.24 uIU/mL (0.34-5.60) L 10/28/21 22:17 Free T4 0.83 ng/dL (0.58-1.64) 10/30/21 05:37 Urine Color YELLOW 10/28/21 22:38 Urine Clarity HAZY (CLEAR) 10/28/21 22:38 Urine pH 5.5 PH (5.0-7.5) 10/28/21 22:38 Ur Specific [place] 1.025 (1.002-1.030) 10/28/21 22:38 Urine Protein 100 mg/dL (NEGATIVE) H 10/28/21 22:38 Urine Glucose (UA) >=1000 mg/dL (NEGATIVE) H 10/28/21 22:38 Urine Ketones 15 mg/dL (NEGATIVE) H 10/28/21 22:38 Urine Occult Blood MODERATE (NEGATIVE) H 10/28/21 22:38 Urine Nitrite POSITIVE (NEGATIVE) H 10/28/21 22:38 Urine Bilirubin NEGATIVE (NEGATIVE) 10/28/21 22:38 Urine Urobilinogen 0.2 (NORMAL) E.U./dL (NORMAL) 10/28/21 22:38 Ur Leukocyte Esterase TRACE (NEGATIVE) H 10/28/21 22:38 Urine RBC 0-5 /HPF (0-5) 10/28/21 22:38 Urine WBC 11-25 /HPF (0-5) H 10/28/21 22:38 Ur Squamous Epith Cells FEW Squamous (<= Few) 10/28/21 22:38 Urine Bacteria Moderate /HPF (None Seen) H 10/28/21 22:38 Urine Casts 3-5 Course Granular /LPF3-5 RBC Casts /LPF 10/28/21 22:38 Urine Casts 3-5 Course Granular /LPF3-5 RBC Casts /LPF 10/28/21 22:38 Ur Microscopic Review INDICATED 10/28/21 22:38 Urine Culture Comments INDICATED 10/28/21 22:38 Nasal Adenovirus (PCR) NOT DETECTED 10/28/21 22:05 Nasal B. parapertussis DNA (PCR) NOT DETECTED 10/28/21 22:05 Nasal Coronavir 229E PCR NOT DETECTED 10/28/21 22:05 Nasal Coronavir HKU1 PCR NOT DETECTED 10/28/21 22:05 Nasal Coronavir NL63 PCR NOT DETECTED 10/28/21 22:05 Nasal Coronavir OC43 PCR NOT DETECTED 10/28/21 22:05 Nasal Enterovir/Rhinovir PCR NOT DETECTED 10/28/21 22:05 Nasal Influenza B PCR NOT DETECTED 10/28/21 22:05 Nasal Influenza A PCR NOT DETECTED 10/28/21 22:05 Nasal Parainfluen 1 PCR NOT DETECTED 10/28/21 22:05 Nasal Parainfluen 2 PCR NOT DETECTED 10/28/21 22:05 Nasal Parainfluen 3 PCR NOT DETECTED 10/28/21 22:05 Nasal Parainfluen 4 PCR NOT DETECTED 10/28/21 22:05 Nasal RSV (PCR) NOT DETECTED 10/28/21 22:05 Nasal B.pertussis DNA PCR NOT DETECTED 10/28/21 22:05 Nasal C.pneumoniae (PCR) NOT DETECTED 10/28/21 22:05 Richard Human Metapneumo PCR NOT DETECTED 10/28/21 22:05 Nasal M.pneumoniae (PCR) NOT DETECTED 10/28/21 22:05 Nasal SARS-CoV-2 (PCR) NOT DETECTED 10/28/21 22:05 Urine Opiates Screen POSITIVE (NEGATIVE) H 10/28/21 22:38 Ur Oxycodone Screen NEGATIVE (NEGATIVE) 10/28/21 22:38 Urine Methadone Screen NEGATIVE (NEGATIVE) 10/28/21 22:38 Ur Propoxyphene Screen NEGATIVE (NEGATIVE) 10/28/21 22:38 Ur Barbiturates Screen NEGATIVE (NEGATIVE) 10/28/21 22:38 Ur Tricyclics Screen NEGATIVE (NEGATIVE) 10/28/21 22:38 Ur Phencyclidine Scrn NEGATIVE (NEGATIVE) 10/28/21 22:38 Ur Amphetamine Screen NEGATIVE (NEGATIVE) 10/28/21 22:38 U Methamphetamines Scrn NEGATIVE (NEGATIVE) 10/28/21 22:38 U Benzodiazepines Scrn NEGATIVE (NEGATIVE) 10/28/21 22:38 Urine Cocaine Screen NEGATIVE (NEGATIVE) 10/28/21 22:38 U Cannabinoids Screen NEGATIVE (NEGATIVE) 10/28/21 22:38 Ethyl Alcohol < 5.0 mg/dL 10/28/21 22:17 Serum Ketones SMALL (NEGATIVE) H 10/30/21 05:37 Sepsis Event Note (H) - Evaluation Current Stage of Sepsis: Sepsis Possible source of Sepsis: positive: Genitourinary - Sepsis Criteria Sepsis Criteria: Recorded Temperature greater than 38.3C or Less than 36C, Recorded Heart Rate greater than 90 bpm, Respiratory: Increasing oxygen requirements, VEIN PUMPER: altered consciousness (unrelated to primary neuro pathology) ABX Reporting Has patient been on IV antibiotics over the past 48 hours?: Yes Current Medications - Current Medications Current Medications: Active Medications Acetaminophen (Acetaminophen 325 Mg Tablet) 650 mg PO Q4HR PRN PRN Reason: Pain 1 to 4 Last Admin: 10/30/21 13:59 Dose: 650 mg Albuterol (Albuterol Neb 2.5 Mg/3 Ml) 2.5 mg INH RTQ4H PRN PRN Reason: Wheezing Albuterol/Ipratropium (Ipratropium/Albuterol 3 Ml Neb) 3 ml INH Q6HR [facility] Last Admin: 11/01/21 13:41 Dose: 3 ml Ascorbic Acid (Ascorbic Acid 500 Mg Tablet) 1,000 mg PO TID [facility] Last Admin: 11/01/21 14:23 Dose: 1,000 mg Budesonide (Budesonide 0.5 Mg/2 Ml Neb) 0.5 mg INH RTBID [facility] Calcium Carbonate/Glycine (Calcium Carbonate Chew 500 Mg Tablet) 500 mg PO 1200,2100 [facility] Cholecalciferol (Cholecalciferol 25 Mcg Tablet) 25 mcg PO DAILY [facility] Last Admin: 11/01/21 08:03 Dose: 25 mcg Enoxaparin Sodium (Enoxaparin 40 Mg/0.4 Ml Syringe) 40 mg SUBQ DAILY [facility] Last Admin: 11/01/21 08:03 Dose: 40 mg Ferrous Sulfate (Ferrous Sulfate 325 Mg Tablet) 325 mg PO QDDINNER [facility] Furosemide (Furosemide 20 Mg Tablet) 20 mg PO DAILY [facility] Last Admin: 11/01/21 14:30 Dose: 20 mg Gabapentin (Gabapentin 100 Mg Capsule) 100 mg PO QPM [facility] Last Admin: 10/31/21 20:37 Dose: 100 mg Guaifenesin (Guaifenesin 600 Mg Tablet) 600 mg PO BID [facility] Insulin Aspart (Insulin Aspart 300 Unit/3 Ml Pen) 3 - 11 unit SUBQ 0800,1200,1 700,2100 [facility]; Protocol Last Admin: 11/01/21 11:50 Dose: 5 unit Insulin Aspart (Insulin Aspart 300 Unit/3 Ml Pen) 8 unit SUBQ TIDWM [facility] Last Admin: 11/01/21 11:50 Dose: 8 unit Insulin Glargine (Insulin Glargine 300 Unit/3 Ml Pen) 30 unit SUBQ QDBREAKFAST [facility] Last Admin: 11/01/21 08:10 Dose: 30 unit Insulin Glargine (Insulin Glargine 300 Unit/3 Ml Pen) 35 unit SUBQ QPM [facility] Last Admin: 10/31/21 20:37 Dose: 35 unit Levofloxacin (Levofloxacin 250 Mg Tablet) 750 mg PO DAILY [facility] Lisinopril (Lisinopril 20 Mg Tablet) 10 mg PO DAILY [facility] Last Admin: 11/01/21 08:04 Dose: 10 mg Morphine Sulfate (Morphine Sulfate Er 30 Mg Tablet) 60 mg PO Q8H [facility] Last Admin: 11/01/21 08:03 Dose: 60 mg Non-Formulary Medication (Acitretin [Soriatane]) 25 mg PO DAILY [facility] Last Admin: 11/01/21 08:08 Dose: Not Given Non-Formulary Medication (Cyclosporine, Modified [Cyclosporine Modified]) 100 mg PO BID [facility] Last Admin: 11/01/21 08:08 Dose: Not Given Ondansetron HCl (Ondansetron Odt 4 Mg Tablet) 4 mg TL Q6HR PRN PRN Reason: Nausea / Vomiting Ondansetron HCl (Ondansetron 4 Mg/2 Ml Vial) 4 mg IVP Q6HR PRN PRN Reason: Nausea / Vomiting Oxycodone HCl (Oxycodone 5 Mg Tablet) 5 mg PO Q4HR PRN PRN Reason: Pain 5 to 7 Last Admin: 10/31/21 20:41 Dose: 5 mg Sodium Chloride (Sodium Chloride Flush 0.9% 10 Ml Syringe) 10 ml IVP PRN PRN PRN Reason: NEEDED PER PROVIDER ORDERS Last Admin: 10/29/21 18:12 Dose: 10 ml Sodium Chloride (Sodium Chloride Flush 0.9% 10 Ml Syringe) 10 ml IVP 0100,0900,1700 [facility] Last Admin: 11/01/21 08:08 Dose: 10 ml Throat Lozenges (Benzocaine/Menthol Lozenge) 1 lozenge MM Q2HR PRN PRN Reason: Throat pain Last Admin: 10/30/21 11:15 Dose: 1 lozenge Insulin Aspart [Novolog] 18 - 26 units SQ AC PRN 07/24/13 Lisinopril 10 mg PO DAILY 07/24/13 [place]-3 Fatty Acids/Fish Oil [Fish Oil 1,000 mg Capsule] 1 each PO TID 07/24/13 gemfibroziL [Gemfibrozil] 600 mg PO BID 07/24/13 Insulin Glargine [Lantus Solostar] 60 units SQ DAILY 02/24/17 Ascorbic Acid [Vitamin C] 1,000 mg PO TID 04/27/18 Cholecalciferol (Vitamin D3) [Vitamin D3] 1,000 units PO DAILY 04/27/18 L-Lysine 500 mg PO BID 04/27/18 Magnesium Oxide [Magnesium] 500 mg PO DAILY 04/27/18 Metformin HCl [Glucophage] 1,000 mg PO BID 04/27/18 Morphine Sulfate [Ms Contin] 60 mg PO TID 04/27/18 Tumeric 1,000 mg PO DAILY 04/27/18 Vitamin E (Dl,Tocopheryl Acet) [Vitamin E] 400 units PO DAILY 04/27/18 Hydrocodone/Acetaminophen [Hydrocodon-Acetaminophn 10-325] 1 each PO TID PRN 07/27/18 Acitretin [Soriatane] 25 mg PO DAILY 11/20/18 Cyclosporine, Modified [Cyclosporine Modified] 100 mg PO BID 10/29/21
[2021-11-01] MEDS: guaiFENesin 600 MG TABLET PO SCH ×2 (14:49→21:22)
[2021-11-01] MEDS: BUDESONIDE 0.5 MG/2 ML NEB INH SCH (18:20)
[2021-11-01] MEDS: GABAPENTIN 100 MG CAPSULE PO SCH (21:22)
[2021-11-01] MEDS: oxyCODONE 5 MG TABLET PO PRN (21:23)
[2021-11-02] MEDS: SODIUM CHLORIDE FLUSH 0.9% 10 ML SYRINGE IVP SCH ×3 (00:51→17:13)
[2021-11-02] MEDS: MORPHINE SULFATE ER 30 MG TABLET PO SCH ×3 (00:51→17:12)
[2021-11-02] MEDS: IPRATROPIUM/ALBUTEROL 3 ML NEB INH SCH ×4 (01:07→20:19)
[2021-11-02] MEDS: oxyCODONE 5 MG TABLET PO PRN ×2 (04:34→20:58)
[2021-11-02] MEDS: ASCORBIC ACID 500 MG TABLET PO SCH ×3 (04:34→21:01)
[2021-11-02 05:47] LABS: BASOPHILS % (AUTO) 0.4 %; EOSINOPHILS % (AUTO) 1.1 %; HCT - HEMATOCRIT 29.5 % (37.0-47.0); HGB - HEMOGLOBIN 9.8 g/dL (12.0-16.0); LYMPHOCYTES % (AUTO) 23.9 %; MEAN CORPUSCULAR HEMOGLOBIN 30.3 pg (27.0-31.0); MEAN CORPUSCULAR HGB CONC 33.2 g/dL (32.0-36.0); MEAN CORPUSCULAR VOLUME 91.3 fL (81.0-99.0); MEAN PLATELET VOLUME 10.1 fL (7.9-10.8); MONOCYTES % (AUTO) 9.8 %; NEUTROPHILS % (AUTO) 62.5 %; PLT - PLATELET COUNT 254 10^3/uL (130-450); RED BLOOD COUNT 3.23 10^6/uL (4.20-5.40); RED CELL DISTRIBUTION WIDTH 13.1 % (12.0-15.0); WHITE BLOOD COUNT 10.1 x10^3/uL (4.8-10.8)
[2021-11-02 06:02] LABS: BAND NEUTROPHILS % (MANUAL) 0 %
[2021-11-02 06:25] LABS: ABNORMAL LYMPHS % (MANUAL) 2 %; EOSINOPHILS # (MANUAL) 0.3 10^3/uL (0-0.7); LYMPHOCYTES % (MANUAL) 18 %; MONOCYTES # (MANUAL) 1.2 10^3/uL (0.0-1.0); NEUTROPHILS # (MANUAL) 6.6 10^3/uL (1.5-6.6); PLATELET ESTIMATE, MANUAL NORMAL (130-450,000) (NORMAL); PLATELET MORPHOLOGY NORMAL APPEARANCE (NORMAL); RBC MORPHOLOGY (MULTIPLE) NORMAL APPEARANCE (NORMAL); WBC MORPHOLOGY (MULTIPLE) NORMAL APPEARANCE (NORMAL)
[2021-11-02 06:26] LABS: DIFFERENTIAL COMMENT MANUAL DIFFERENTIAL
[2021-11-02] MEDS: INSULIN GLARGINE 300 UNIT/3 ML PEN SUBQ SCH ×2 (07:47→21:01)
[2021-11-02] MEDS: INSULIN ASPART 300 UNIT/3 ML PEN SUBQ SCH ×7 (07:49→21:00)
[2021-11-02] MEDS: CHOLECALCIFEROL 25 MCG TABLET PO SCH (07:51)
[2021-11-02] MEDS: lisinopriL 20 MG TABLET PO SCH (07:51)
[2021-11-02] MEDS: ENOXAPARIN 40 MG/0.4 ML SYRINGE SUBQ SCH (07:51)
[2021-11-02] MEDS: guaiFENesin 600 MG TABLET PO SCH ×2 (07:52→20:58)
[2021-11-02] MEDS: FUROSEMIDE 20 MG TABLET PO SCH (07:52)
[2021-11-02] MEDS: ACITRETIN 25 MG PO SCH (07:54)
[2021-11-02] MEDS: CYCLOSPORINE MODIFIED 100 MG PO SCH ×2 (07:55→20:59)
[2021-11-02] MEDS ORDERED: levoFLOXacin 250 MG TABLET PO SCH (09:00)
[2021-11-02] MEDS: BUDESONIDE 0.5 MG/2 ML NEB INH SCH ×3 (09:11→20:19)
[2021-11-02] MEDS: CALCIUM CARBONATE CHEW 500 MG TABLET PO SCH ×2 (11:49→20:58)
--- NOTE | 2021-11-02 16:52 | PROVIDER PROGRESS NOTE ---
Subjective - Prog Note Date Prog Note Date: 11/02/21 - Subjective Subjective: She feels better overall. Still feels short of breath at times but this is improving on a daily basis. Current Medications - Current Medications Current Medications: Active Medications Acetaminophen (Acetaminophen 325 Mg Tablet) 650 mg PO Q4HR PRN PRN Reason: Pain 1 to 4 Last Admin: 10/30/21 13:59 Dose: 650 mg Albuterol (Albuterol Neb 2.5 Mg/3 Ml) 2.5 mg INH RTQ4H PRN PRN Reason: Wheezing Albuterol/Ipratropium (Ipratropium/Albuterol 3 Ml Neb) 3 ml INH Q6HR [facility] Last Admin: 11/02/21 14:50 Dose: 3 ml Ascorbic Acid (Ascorbic Acid 500 Mg Tablet) 1,000 mg PO TID [facility] Last Admin: 11/02/21 15:06 Dose: 1,000 mg Budesonide (Budesonide 0.5 Mg/2 Ml Neb) 0.5 mg INH RTBID [facility] Last Admin: 11/02/21 09:11 Dose: 0.5 mg Calcium Carbonate/Glycine (Calcium Carbonate Chew 500 Mg Tablet) 500 mg PO 1200,2100 [facility] Last Admin: 11/02/21 11:49 Dose: 500 mg Cholecalciferol (Cholecalciferol 25 Mcg Tablet) 25 mcg PO DAILY [facility] Last Admin: 11/02/21 07:51 Dose: 25 mcg Enoxaparin Sodium (Enoxaparin 40 Mg/0.4 Ml Syringe) 40 mg SUBQ DAILY [facility] Last Admin: 11/02/21 07:51 Dose: 40 mg Ferrous Sulfate (Ferrous Sulfate 325 Mg Tablet) 325 mg PO QDDINNER [facility] Furosemide (Furosemide 20 Mg Tablet) 20 mg PO DAILY [facility] Last Admin: 11/02/21 07:52 Dose: 20 mg Gabapentin (Gabapentin 100 Mg Capsule) 100 mg PO QPM [facility] Last Admin: 11/01/21 21:22 Dose: 100 mg Guaifenesin (Guaifenesin 600 Mg Tablet) 600 mg PO BID [facility] Last Admin: 11/02/21 07:52 Dose: 600 mg Insulin Aspart (Insulin Aspart 300 Unit/3 Ml Pen) 3 - 11 unit SUBQ 0800,1200,1700,2100 [facility]; Protocol Last Admin: 11/02/21 11:52 Dose: 3 unit Insulin Aspart (Insulin Aspart 300 Unit/3 Ml Pen) 8 unit SUBQ TIDWM [facility] Last Admin: 11/02/21 11:51 Dose: 8 unit Insulin Glargine (Insulin Glargine 300 Unit/3 Ml Pen) 30 unit SUBQ QDBREAKFAST [facility] Last Admin: 11/02/21 07:47 Dose: 30 unit Insulin Glargine (Insulin Glargine 300 Unit/3 Ml Pen) 35 unit SUBQ QPM [facility] Last Admin: 11/01/21 21:21 Dose: 35 unit Levofloxacin (Levofloxacin 250 Mg Tablet) 750 mg PO DAILY [facility] Last Admin: 11/02/21 09:03 Dose: 750 mg Lisinopril (Lisinopril 20 Mg Tablet) 10 mg PO DAILY [facility] Last Admin: 11/02/21 07:51 Dose: 10 mg Morphine Sulfate (Morphine Sulfate Er 30 Mg Tablet) 60 mg PO Q8H [facility] Last Admin: 11/02/21 07:53 Dose: 60 mg Non-Formulary Medication (Acitretin [Soriatane]) 25 mg PO DAILY [facility] Last Admin: 11/02/21 07:54 Dose: Not Given Non-Formulary Medication (Cyclosporine, Modified [Cyclosporine Modified]) 100 mg PO BID [facility] Last Admin: 11/02/21 07:55 Dose: Not Given Ondansetron HCl (Ondansetron Odt 4 Mg Tablet) 4 mg TL Q6HR PRN PRN Reason: Nausea / Vomiting Ondansetron HCl (Ondansetron 4 Mg/2 Ml Vial) 4 mg IVP Q6HR PRN PRN Reason: Nausea / Vomiting Oxycodone HCl (Oxycodone 5 Mg Tablet) 5 mg PO Q4HR PRN PRN Reason: Pain 5 to 7 Last Admin: 11/02/21 04:34 Dose: 5 mg Polyethylene Glycol (Polyethylene Glycol 3350 17 Gm Packet) 17 gm PO DAILY [facility] Sodium Chloride (Sodium Chloride Flush 0.9% 10 Ml Syringe) 10 ml IVP PRN PRN PRN Reason: NEEDED PER PROVIDER ORDERS Last Admin: 10/29/21 18:12 Dose: 10 ml Sodium Chloride (Sodium Chloride Flush 0.9% 10 Ml Syringe) 10 ml IVP 0100,0900,1700 [facility] Last Admin: 11/02/21 07:55 Dose: 10 ml Throat Lozenges (Benzocaine/Menthol Lozenge) 1 lozenge MM Q2HR PRN PRN Reason: Throat pain Last Admin: 10/30/21 11:15 Dose: 1 lozenge Insulin Aspart [Novolog] 18 - 26 units SQ AC PRN 07/24/13 Lisinopril 10 mg PO DAILY 07/24/13 [place]-3 Fatty Acids/Fish Oil [Fish Oil 1,000 mg Capsule] 1 each PO TID 07/24/13 gemfibroziL [Gemfibrozil] 600 mg PO BID 07/24/13 Insulin Glargine [Lantus Solostar] 60 units SQ DAILY 02/24/17 Ascorbic Acid [Vitamin C] 1,000 mg PO TID 04/27/18 Cholecalciferol (Vitamin D3) [Vitamin D3] 1,000 units PO DAILY 04/27/18 L-Lysine 500 mg PO BID 04/27/18 Magnesium Oxide [Magnesium] 500 mg PO DAILY 04/27/18 Metformin HCl [Glucophage] 1,000 mg PO BID 04/27/18 Morphine Sulfate [Ms Contin] 60 mg PO TID 04/27/18 Tumeric 1,000 mg PO DAILY 04/27/18 Vitamin E (Dl,Tocopheryl Acet) [Vitamin E] 400 units PO DAILY 04/27/18 Hydrocodone/Acetaminophen [Hydrocodon-Acetaminophn 10-325] 1 each PO TID PRN 07/27/18 Acitretin [Soriatane] 25 mg PO DAILY 11/20/18 Cyclosporine, Modified [Cyclosporine Modified] 100 mg PO BID 10/29/21 Objective - Vital Signs/Intake & Output Reviewed Vital Signs: Yes Vital Signs: Vital Signs x48h Temp Pulse Pulse Pulse Resp BP BP 11/02/21 15:46 36.9 C 80 24 144/53 H 11/02/21 14:48 80 18 11/02/21 11:56 85 17 99/54 L 11/02/21 09:04 88 20 Pulse Ox 11/02/21 15:46 94 11/02/21 14:48 11/02/21 11:56 11/02/21 09:04 Intake & Output: Intake & Output 10/30/21 10/31/21 11/01/21 11/02/21 23:59 23:59 23:59 23:59 Intake Total 1736 1471 1505 1070 Balance 1736 1471 1505 1070 - Objective General Appearance: positive: No acute distress, Alert Eyes Bilateral: positive: Normal inspection, Conjunctivae nml ENT: positive: ENT inspection nml, Other (Nasal cannula in place.) Neck: positive: Nml inspection Respiratory: positive: No respiratory distress, Other (Diminished in bases.). negative: Wheezes, Rales Cardiovascular: positive: Regular rate & rhythm. negative: Tachycardia Skin: positive: Warm, Dry, Other (Chronic venous stasis changes.) Extremities: positive: Pedal edema (Trace edema.) Neurologic/Psychiatric: negative: Disoriented to person, Disoriented to place - Lab Results Fish Bones: 11/02/21 04:45 11/01/21 04:27 Other Labs: Lab Results x24hrs 11/02/21 11/02/21 11/02/21 Range/Units 16:33 11:48 07:40 WBC (4.8-10.8) x10^3/uL RBC (4.20-5.40) 10^6/uL Hgb (12.0-16.0) g/dL Hct (37.0-47.0) % MCV (81.0-99.0) fL MCH (27.0-31.0) pg MCHC (32.0-36.0) g/dL RDW (12.0-15.0) % Plt Count (130-450) 10^3/uL MPV (7.9-10.8) fL Neut # (Auto) Lymph # (Auto) Phillips # (Auto) Eos # (Auto) Baso # (Auto) Absolute Nucleated RBC Total Counted Band Neuts % (Manual) (0 - 10) % Abnorm Lymph % (Manual) % Nucleated RBC % Neutrophils # (Manual) (1.5-6.6) 10^3/uL Lymphocytes # (Manual) (1.5-3.5) 10^3/uL Monocytes # (Manual) (0.0-1.0) 10^3/uL Eosinophils # (Manual) (0-0.7) 10^3/uL Basophils # (Manual) (0-0.1) 10^3/uL Differential Comment WBC Morphology (NORMAL) Platelet Estimate (NORMAL) Platelet Morphology (NORMAL) RBC Morph Micro Appear (NORMAL) POC Whole Bld Glucose 146 H 170 H 331 H (70 - 100) mg/dL B-Natriuretic Peptide (5-100) pg/mL 11/02/21 11/02/21 11/01/21 Range/Units 05:15 04:45 20:35 WBC 10.1 (4.8-10.8) x10^3/uL RBC 3.23 L (4.20-5.40) 10^6/uL Hgb 9.8 L (12.0-16.0) g/dL Hct 29.5 L (37.0-47.0) % MCV 91.3 (81.0-99.0) fL MCH 30.3 (27.0-31.0) pg MCHC 33.2 (32.0-36.0) g/dL RDW 13.1 (12.0-15.0) % Plt Count 254 (130-450) 10^3/uL MPV 10.1 (7.9-10.8) fL Neut # (Auto) Not Reportable Lymph # (Auto) Not Reportable Phillips # (Auto) Not Reportable Eos # (Auto) Not Reportable Baso # (Auto) Not Reportable Absolute Nucleated RBC Not Reportable Total Counted 100 Band Neuts % (Manual) 0 (0 - 10) % Abnorm Lymph % (Manual) 2 % Nucleated RBC % Not Reportable Neutrophils # (Manual) 6.6 (1.5-6.6) 10^3/uL Lymphocytes # (Manual) 2.0 (1.5-3.5) 10^3/uL Monocytes # (Manual) 1.2 H (0.0-1.0) 10^3/uL Eosinophils # (Manual) 0.3 (0-0.7) 10^3/uL Basophils # (Manual) 0.0 (0-0.1) 10^3/uL Differential Comment MANUAL DIFFERENTIAL WBC Morphology NORMAL APPEARANCE (NORMAL) Platelet Estimate NORMAL (130-450,000) (NORMAL) Platelet Morphology NORMAL APPEARANCE (NORMAL) RBC Morph Micro Appear NORMAL APPEARANCE (NORMAL) POC Whole Bld Glucose 188 H (70 - 100) mg/dL B-Natriuretic Peptide 55 (5-100) pg/mL 11/01/21 Range/Units 16:41 WBC (4.8-10.8) x10^3/uL RBC (4.20-5.40) 10^6/uL Hgb (12.0-16.0) g/dL Hct (37.0-47.0) % MCV (81.0-99.0) fL MCH (27.0-31.0) pg MCHC (32.0-36.0) g/dL RDW (12.0-15.0) % Plt Count (130-450) 10^3/uL MPV (7.9-10.8) fL Neut # (Auto) Lymph # (Auto) Phillips # (Auto) Eos # (Auto) Baso # (Auto) Absolute Nucleated RBC Total Counted Band Neuts % (Manual) (0 - 10) % Abnorm Lymph % (Manual) % Nucleated RBC % Neutrophils # (Manual) (1.5-6.6) 10^3/uL Lymphocytes # (Manual) (1.5-3.5) 10^3/uL Monocytes # (Manual) (0.0-1.0) 10^3/uL Eosinophils # (Manual) (0-0.7) 10^3/uL Basophils # (Manual) (0-0.1) 10^3/uL Differential Comment WBC Morphology (NORMAL) Platelet Estimate (NORMAL) Platelet Morphology (NORMAL) RBC Morph Micro Appear (NORMAL) POC Whole Bld Glucose 158 H (70 - 100) mg/dL B-Natriuretic Peptide (5-100) pg/mL Sepsis Event Note (H) - Evaluation Current Stage of Sepsis: Sepsis Possible source of Sepsis: positive: Genitourinary - Sepsis Criteria Sepsis Criteria: Recorded Temperature greater than 38.3C or Less than 36C, Recorded Heart Rate greater than 90 bpm, Respiratory: Increasing oxygen requirements, FIELD STAFF: altered consciousness (unrelated to primary neuro pathology) Assessment/Plan - Problem List (1) Sepsis Impression: Secondary to the pyelonephritis and is now resolved. She is now on oral Levaquin for the Klebsiella bacteremia. Qualifiers: Sepsis type: sepsis due to unspecified organism Sepsis acute organ dysfunction status: without acute organ dysfunction Qualified Code(s): A41.9 - Sepsis, unspecified organism (2) Pyelonephritis Impression: This significantly improved and was secondary to Klebsiella pneumonia. She is now on oral Levaquin to complete 2 weeks of therapy for the bacteremia. (3) Bacteremia due to Klebsiella pneumoniae Impression: Her blood cultures grew Klebsiella pneumonia and repeat cultures are negative. Her echocardiogram was concerning for potential vegetation calcification but clinically there is very low suspicion for endocarditis given this is gram- negative bacteremia. We will complete 2 weeks of oral therapy with Levaquin. (4) Hypoxia Impression: This is improving and felt be secondary to fluid overload. It is not clear why she had pulmonary edema as echo does not really suggest heart failure and her BNP is within normal limits. BNP may be falsely decreased due to her obesity. She only has minimal lower extremity edema. Nonetheless, she is improving with diuresis we will give another day of diuretics she is now down to 1 L of oxygen. I am hopeful she can be weaned to room air prior to discharge. She has required oxygen in the past and she may potentially require oxygen on discharge if we cannot wean her down. (5) Insulin dependent diabetes mellitus Impression: Her blood glucose this morning was greater than 300 but it is improved to the 170s for lunch. We will continue her insulin regimen at this time and if be comes hyperglycemic we will switch her to her home insulin regiment. (6) Chronic pain Impression: Stable. We are continuing her home pain medications. Qualifiers: Chronic pain type: chronic pain syndrome Qualified Code(s): G89.4 - Chronic pain syndrome (7) Metabolic encephalopathy Impression: This is resolved most likely secondary to sepsis.
[2021-11-02] MEDS: polyethylene glycoL 3350 17 GM PACKET PO SCH (17:12)
[2021-11-02] MEDS: FERROUS SULFATE 325 MG TABLET PO SCH (17:12)
[2021-11-02] MEDS: CARBOXYMETHYLCELLULOSE OPHTH DROPS EACHEYE PRN (19:46)
[2021-11-02 20:04] LABS: FECAL OCCULT BLOOD (FIT) POSITIVE (NEGATIVE)
[2021-11-02] MEDS: GABAPENTIN 100 MG CAPSULE PO SCH (20:58)
[2021-11-03] MEDS: SODIUM CHLORIDE FLUSH 0.9% 10 ML SYRINGE IVP SCH ×4 (01:07→23:36)
[2021-11-03] MEDS: MORPHINE SULFATE ER 30 MG TABLET PO SCH ×4 (01:07→23:36)
[2021-11-03] MEDS: IPRATROPIUM/ALBUTEROL 3 ML NEB INH SCH ×4 (05:04→19:27)
[2021-11-03 06:02] LABS: BASOPHILS % (AUTO) 0.4 %; EOSINOPHILS % (AUTO) 0.9 %; HCT - HEMATOCRIT 30.5 % (37.0-47.0); HGB - HEMOGLOBIN 10.1 g/dL (12.0-16.0); LYMPHOCYTES % (AUTO) 23.2 %; MEAN CORPUSCULAR HEMOGLOBIN 30.1 pg (27.0-31.0); MEAN CORPUSCULAR HGB CONC 33.1 g/dL (32.0-36.0); MEAN PLATELET VOLUME 9.7 fL (7.9-10.8); MONOCYTES % (AUTO) 9.8 %; NEUTROPHILS % (AUTO) 60.9 %; PLT - PLATELET COUNT 347 10^3/uL (130-450); RED BLOOD COUNT 3.35 10^6/uL (4.20-5.40); RED CELL DISTRIBUTION WIDTH 13.2 % (12.0-15.0); WHITE BLOOD COUNT 9.3 x10^3/uL (4.8-10.8)
[2021-11-03 06:08] LABS: ABNORMAL LYMPHS % (MANUAL) 0 %; BAND NEUTROPHILS % (MANUAL) 0 %
[2021-11-03 06:12] LABS: CALCIUM 9.1 mg/dL (8.5-10.3); CREATININE 0.8 mg/dL (0.4-1.0); POTASSIUM 4.4 mmol/L (3.5-5.0)
[2021-11-03 06:26] LABS: DIFFERENTIAL COMMENT MANUAL DIFFERENTIAL; LYMPHOCYTES % (MANUAL) 22 %; MONOCYTES # (MANUAL) 0.9 10^3/uL (0.0-1.0); NEUTROPHILS # (MANUAL) 6.3 10^3/uL (1.5-6.6); PLATELET ESTIMATE, MANUAL NORMAL (130-450,000) (NORMAL); PLATELET MORPHOLOGY NORMAL APPEARANCE (NORMAL); RBC MORPHOLOGY (MULTIPLE) NORMAL APPEARANCE (NORMAL); WBC MORPHOLOGY (MULTIPLE) NORMAL APPEARANCE (NORMAL)
[2021-11-03] MEDS: ASCORBIC ACID 500 MG TABLET PO SCH (06:47)
[2021-11-03] MEDS: INSULIN GLARGINE 300 UNIT/3 ML PEN SUBQ SCH (07:45)
[2021-11-03] MEDS: INSULIN ASPART 300 UNIT/3 ML PEN SUBQ SCH ×7 (07:46→21:19)
[2021-11-03] MEDS: ACITRETIN 25 MG PO SCH (07:47)
[2021-11-03] MEDS: CYCLOSPORINE MODIFIED 100 MG PO SCH ×2 (07:47→21:18)
[2021-11-03] MEDS ORDERED: FUROSEMIDE 20 MG/2 ML VIAL IVP STA (07:56)
[2021-11-03] MEDS: BUDESONIDE 0.5 MG/2 ML NEB INH SCH ×2 (08:58→19:27)
[2021-11-03] MEDS ORDERED: ASCORBIC ACID 500 MG TABLET PO SCH (09:00)
[2021-11-03] MEDS: CHOLECALCIFEROL 25 MCG TABLET PO SCH (09:18)
[2021-11-03] MEDS: CYANOCOBALAMIN 500 MCG TABLET PO SCH (09:18)
[2021-11-03] MEDS: ENOXAPARIN 40 MG/0.4 ML SYRINGE SUBQ SCH (09:18)
[2021-11-03] MEDS: guaiFENesin 600 MG TABLET PO SCH ×2 (09:19→21:18)
[2021-11-03] MEDS: polyethylene glycoL 3350 17 GM PACKET PO SCH (09:19)
[2021-11-03] MEDS: FUROSEMIDE 20 MG TABLET PO SCH (09:19)
[2021-11-03] MEDS: lisinopriL 20 MG TABLET PO SCH (09:20)
[2021-11-03] MEDS ORDERED: CEFPODOXIME PROXETIL 100 MG TABLET PO SCH (10:00)
[2021-11-03] MEDS: CARBOXYMETHYLCELLULOSE OPHTH DROPS EACHEYE PRN ×2 (11:52→20:08)
[2021-11-03] MEDS: CALCIUM CARBONATE CHEW 500 MG TABLET PO SCH ×2 (11:52→21:18)
--- NOTE | 2021-11-03 14:13 | PROVIDER PROGRESS NOTE ---
Subjective - Prog Note Date Prog Note Date: 11/03/21 - Subjective Subjective: She still feels short of breath and does not feel it has improved much over the past 24 hours. She still has chronic leg swelling. She does find relief with inhalers. She is concerned today about her psoriasis which has been more prominent in her palms. She states that because she has not had the lotion that she was previously taking since being admitted. She does not think this is a drug rash Current Medications - Current Medications Current Medications: Active Medications Acetaminophen (Acetaminophen 325 Mg Tablet) 650 mg PO Q4HR PRN PRN Reason: Pain 1 to 4 Last Admin: 10/30/21 13:59 Dose: 650 mg Albuterol (Albuterol Neb 2.5 Mg/3 Ml) 2.5 mg INH RTQ4H PRN PRN Reason: Wheezing Albuterol/Ipratropium (Ipratropium/Albuterol 3 Ml Neb) 3 ml INH Q6HR [facility] Last Admin: 11/03/21 08:58 Dose: 3 ml Ascorbic Acid (Ascorbic Acid 500 Mg Tablet) 1,000 mg PO DAILY [facility] Budesonide (Budesonide 0.5 Mg/2 Ml Neb) 0.5 mg INH RTBID [facility] Last Admin: 11/03/21 08:58 Dose: 0.5 mg Calcium Carbonate/Glycine (Calcium Carbonate Chew 500 Mg Tablet) 500 mg PO 1200,2100 [facility] Last Admin: 11/03/21 11:52 Dose: 500 mg Carboxymethylcellulose (Carboxymethylcellulose Ophth Drops) 1 drops EACHEYE PRN PRN PRN Reason: Dry Eye Last Admin: 11/03/21 11:52 Dose: 1 drops Cefuroxime Axetil (Cefpodoxime Proxetil 100 Mg Tablet) 200 mg PO BID [facility] Last Admin: 11/03/21 10:37 Dose: 200 mg Cholecalciferol (Cholecalciferol 25 Mcg Tablet) 25 mcg PO DAILY [facility] Last Admin: 11/03/21 09:18 Dose: 25 mcg Cyanocobalamin (Cyanocobalamin 500 Mcg Tablet) 1,000 mcg PO DAILY [facility] Last Admin: 11/03/21 09:18 Dose: 1,000 mcg Enoxaparin Sodium (Enoxaparin 40 Mg/0.4 Ml Syringe) 40 mg SUBQ DAILY [facility] Last Admin: 11/03/21 09:18 Dose: 40 mg Ferrous Sulfate (Ferrous Sulfate 325 Mg Tablet) 325 mg PO QDDINNER [facility] Last Admin: 11/02/21 17:12 Dose: 325 mg Furosemide (Furosemide 20 Mg Tablet) 20 mg PO DAILY [facility] Last Admin: 11/03/21 09:19 Dose: Not Given Gabapentin (Gabapentin 100 Mg Capsule) 100 mg PO QPM [facility] Last Admin: 11/02/21 20:58 Dose: 100 mg Guaifenesin (Guaifenesin 600 Mg Tablet) 600 mg PO BID [facility] Last Admin: 11/03/21 09:19 Dose: 600 mg Insulin Aspart (Insulin Aspart 300 Unit/3 Ml Pen) 3 - 11 unit SUBQ 0800,1200,1700,2100 [facility]; Protocol Last Admin: 11/03/21 11:46 Dose: 7 unit Insulin Aspart (Insulin Aspart 300 Unit/3 Ml Pen) 8 unit SUBQ TIDWM [facility] Last Admin: 11/03/21 11:45 Dose: 8 unit Insulin Glargine (Insulin Glargine 300 Unit/3 Ml Pen) 30 unit SUBQ QDBREAKFAST [facility] Last Admin: 11/03/21 07:45 Dose: 30 unit Insulin Glargine (Insulin Glargine 300 Unit/3 Ml Pen) 35 unit SUBQ QPM [facility] Last Admin: 11/02/21 21:01 Dose: 35 unit Lisinopril (Lisinopril 20 Mg Tablet) 10 mg PO DAILY [facility] Last Admin: 11/03/21 09:20 Dose: 10 mg Morphine Sulfate (Morphine Sulfate Er 30 Mg Tablet) 60 mg PO Q8H [facility] Last Admin: 11/03/21 09:18 Dose: 60 mg Non-Formulary Medication (Acitretin [Soriatane]) 25 mg PO DAILY [facility] Last Admin: 11/03/21 07:47 Dose: Not Given Non-Formulary Medication (Cyclosporine, Modified [Cyclosporine Modified]) 100 mg PO BID [facility] Last Admin: 11/03/21 07:47 Dose: Not Given Ondansetron HCl (Ondansetron Odt 4 Mg Tablet) 4 mg TL Q6HR PRN PRN Reason: Nausea / Vomiting Ondansetron HCl (Ondansetron 4 Mg/2 Ml Vial) 4 mg IVP Q6HR PRN PRN Reason: Nausea / Vomiting Oxycodone HCl (Oxycodone 5 Mg Tablet) 5 mg PO Q4HR PRN PRN Reason: Pain 5 to 7 Last Admin: 11/02/21 20:58 Dose: 5 mg Polyethylene Glycol (Polyethylene Glycol 3350 17 Gm Packet) 17 gm PO DAILY [facility] Last Admin: 11/03/21 09:19 Dose: 17 gm Sodium Chloride (Sodium Chloride Flush 0.9% 10 Ml Syringe) 10 ml IVP PRN PRN PRN Reason: NEEDED PER PROVIDER ORDERS Last Admin: 10/29/21 18:12 Dose: 10 ml Sodium Chloride (Sodium Chloride Flush 0.9% 10 Ml Syringe) 10 ml IVP 0100,0900,1700 [facility] Last Admin: 11/03/21 09:20 Dose: 10 ml Throat Lozenges (Benzocaine/Menthol Lozenge) 1 lozenge MM Q2HR PRN PRN Reason: Throat pain Last Admin: 10/30/21 11:15 Dose: 1 lozenge Insulin Aspart [Novolog] 18 - 26 units SQ AC PRN 07/24/13 Lisinopril 10 mg PO DAILY 07/24/13 [place]-3 Fatty Acids/Fish Oil [Fish Oil 1,000 mg Capsule] 1 each PO TID 07/24/13 gemfibroziL [Gemfibrozil] 600 mg PO BID 07/24/13 Insulin Glargine [Lantus Solostar] 60 units SQ DAILY 02/24/17 Ascorbic Acid [Vitamin C] 1,000 mg PO TID 04/27/18 Cholecalciferol (Vitamin D3) [Vitamin D3] 1,000 units PO DAILY 04/27/18 L-Lysine 500 mg PO BID 04/27/18 Magnesium Oxide [Magnesium] 500 mg PO DAILY 04/27/18 Metformin HCl [Glucophage] 1,000 mg PO BID 04/27/18 Morphine Sulfate [Ms Contin] 60 mg PO TID 04/27/18 Tumeric 1,000 mg PO DAILY 04/27/18 Vitamin E (Dl,Tocopheryl Acet) [Vitamin E] 400 units PO DAILY 04/27/18 Hydrocodone/Acetaminophen [Hydrocodon-Acetaminophn 10-325] 1 each PO TID PRN 07/27/18 Acitretin [Soriatane] 25 mg PO DAILY 11/20/18 Cyclosporine, Modified [Cyclosporine Modified] 100 mg PO BID 10/29/21 Objective - Vital Signs/Intake & Output Reviewed Vital Signs: Yes Vital Signs: Vital Signs x48h Temp Pulse Pulse Resp BP Pulse Ox 11/03/21 08:59 90 20 11/03/21 07:57 37.2 C 93 20 116/58 L 95 Intake & Output: Intake & Output 10/31/21 11/01/21 11/02/21 11/03/21 23:59 23:59 23:59 23:59 Intake Total 1471 1505 2040 916 Balance 1471 1505 2040 916 - Objective General Appearance: positive: No acute distress, Alert Eyes Bilateral: positive: Normal inspection, Conjunctivae nml ENT: positive: ENT inspection nml, Other (Nasal cannula in place.) Neck: positive: Nml inspection Respiratory: positive: No respiratory distress, Rales, Other (Diminished in bases.) Cardiovascular: positive: Regular rate & rhythm. negative: Tachycardia Skin: positive: Warm, Dry, Other (Chronic venous stasis changes over bilateral lower extremities.) Extremities: positive: Pedal edema (+1 edema in bilateral lower extremities.) - Lab Results Fish Bones: 11/03/21 05:40 11/03/21 05:40 Other Labs: Lab Results x24hrs 11/03/21 11/03/21 11/03/21 Range/Units 11:21 07:39 05:40 WBC (4.8-10.8) x10^3/uL RBC (4.20-5.40) 10^6/uL Hgb (12.0-16.0) g/dL Hct (37.0-47.0) % MCV (81.0-99.0) fL MCH (27.0-31.0) pg MCHC (32.0-36.0) g/dL RDW (12.0-15.0) % Plt Count (130-450) 10^3/uL MPV (7.9-10.8) fL Neut # (Auto) Lymph # (Auto) Miller # (Auto) Eos # (Auto) Baso # (Auto) Absolute Nucleated RBC Total Counted Band Neuts % (Manual) (0 - 10) % Abnorm Lymph % (Manual) % Nucleated RBC % Neutrophils # (Manual) (1.5-6.6) 10^3/uL Lymphocytes # (Manual) (1.5-3.5) 10^3/uL Monocytes # (Manual) (0.0-1.0) 10^3/uL Eosinophils # (Manual) (0-0.7) 10^3/uL Basophils # (Manual) (0-0.1) 10^3/uL Differential Comment WBC Morphology (NORMAL) Platelet Estimate (NORMAL) Platelet Morphology (NORMAL) RBC Morph Micro Appear (NORMAL) Sodium 138 (135-145) mmol/L Potassium 4.4 (3.5-5.0) mmol/L Chloride 99 L (101-111) mmol/L Carbon Dioxide 29 (21-32) mmol/L Anion Gap 10.0 (6-13) BUN 26 H (6-20) mg/dL Creatinine 0.8 (0.4-1.0) mg/dL Estimated GFR (MDRD) 73 L (>89) Glucose 216 H (70-100) mg/dL POC Whole Bld Glucose 227 H 225 H (70 - 100) mg/dL Calcium 9.1 (8.5-10.3) mg/dL Stl Occult Blood (IFOB) (NEGATIVE) 11/03/21 11/02/21 11/02/21 Range/Units 05:40 19:15 16:33 WBC 9.3 (4.8-10.8) x10^3/uL RBC 3.35 L (4.20-5.40) 10^6/uL Hgb 10.1 L (12.0-16.0) g/dL Hct 30.5 L (37.0-47.0) % MCV 91.0 (81.0-99.0) fL MCH 30.1 (27.0-31.0) pg MCHC 33.1 (32.0-36.0) g/dL RDW 13.2 (12.0-15.0) % Plt Count 347 (130-450) 10^3/uL MPV 9.7 (7.9-10.8) fL Neut # (Auto) Not Reportable Lymph # (Auto) Not Reportable Miller # (Auto) Not Reportable Eos # (Auto) Not Reportable Baso # (Auto) Not Reportable Absolute Nucleated RBC Not Reportable Total Counted 100 Band Neuts % (Manual) 0 (0 - 10) % Abnorm Lymph % (Manual) 0 % Nucleated RBC % Not Reportable Neutrophils # (Manual) 6.3 (1.5-6.6) 10^3/uL Lymphocytes # (Manual) 2.0 (1.5-3.5) 10^3/uL Monocytes # (Manual) 0.9 (0.0-1.0) 10^3/uL Eosinophils # (Manual) 0.0 (0-0.7) 10^3/uL Basophils # (Manual) 0.0 (0-0.1) 10^3/uL Differential Comment MANUAL DIFFERENTIAL WBC Morphology NORMAL APPEARANCE (NORMAL) Platelet Estimate NORMAL (130-450,000) (NORMAL) Platelet Morphology NORMAL APPEARANCE (NORMAL) RBC Morph Micro Appear NORMAL APPEARANCE (NORMAL) Sodium (135-145) mmol/L Potassium (3.5-5.0) mmol/L Chloride (101-111) mmol/L Carbon Dioxide (21-32) mmol/L Anion Gap (6-13) BUN (6-20) mg/dL Creatinine (0.4-1.0) mg/dL Estimated GFR (MDRD) (>89) Glucose (70-100) mg/dL POC Whole Bld Glucose 146 H (70 - 100) mg/dL Calcium (8.5-10.3) mg/dL Stl Occult Blood (IFOB) POSITIVE A (NEGATIVE) Sepsis Event Note (H) - Evaluation Current Stage of Sepsis: Sepsis Possible source of Sepsis: positive: Genitourinary - Sepsis Criteria Sepsis Criteria: Recorded Temperature greater than 38.3C or Less than 36C, Recorded Heart Rate greater than 90 bpm, Respiratory: Increasing oxygen requirements, DUST CONTR[employer] ENGINEER: altered consciousness (unrelated to primary neuro pathology) Assessment/Plan - Problem List (1) Hypoxia Impression: This is improving and was secondary to pulmonary edema. She still requires 1 L of oxygen but this is significant improvement compared to her admission. Most recent imaging still showed pulmonary edema. We will give her a dose of IV L asix today and will repeat a chest x-ray the morning. If there is no significant edema and she remains on a liter of oxygen I suspect she likely will just need oxygen at home and we can perform an exercise desaturation study. (2) Pyelonephritis Impression: This was a cause of her sepsis. She is on Levaquin now for the Klebsiella bacteremia. She will need a total of 2 weeks of therapy. (3) Bacteremia due to Klebsiella pneumoniae Impression: Repeat blood culture negative. Echocardiogram was concerning for potential vegetation calcification but given the gram-negative bacteremia, the suspicion of endocarditis is extremely low. She will complete 2 weeks of oral Levaquin. (4) Psoriasis palmaris Impression: This was exacerbated today due to her not having her home medications. She has not found a lotion that helps with her psoriasis. Initial concern was that this was a drug allergy to Levaquin but now this is felt to be less likely. She will continue Levaquin for total of 2 weeks. (5) Insulin dependent diabetes mellitus Impression: Her blood glucose is improved but still elevated in the 200. We will put her on her home insulin regimen. (6) Chronic pain Impression: Stable. We are continuing her home pain medications. Qualifiers: Chronic pain type: chronic pain syndrome Qualified Code(s): G89.4 - Chronic pain syndrome (7) Metabolic encephalopathy Impression: This is resolved and was most likely secondary to sepsis. (8) Sepsis Impression: This was secondary to pyelonephritis and bacteremia. This is resolved. Qualifiers: Sepsis type: sepsis due to unspecified organism Sepsis acute organ dysfunction status: without acute organ dysfunction Qualified Code(s): A41.9 - Sepsis, unspecified organism
[2021-11-03] MEDS: FERROUS SULFATE 325 MG TABLET PO SCH (17:10)
[2021-11-03] MEDS: levoFLOXacin 250 MG TABLET PO SCH (17:49)
[2021-11-03] MEDS: GABAPENTIN 100 MG CAPSULE PO SCH (21:18)
[2021-11-03] MEDS: oxyCODONE 5 MG TABLET PO PRN (21:18)
[2021-11-04] MEDS: IPRATROPIUM/ALBUTEROL 3 ML NEB INH SCH ×3 (00:57→13:04)
[2021-11-04 06:14] LABS: BASOPHILS % (AUTO) 0.4 %; HCT - HEMATOCRIT 30.8 % (37.0-47.0); HGB - HEMOGLOBIN 10.1 g/dL (12.0-16.0); LYMPHOCYTES % (AUTO) 19.5 %; MEAN CORPUSCULAR HEMOGLOBIN 30.1 pg (27.0-31.0); MEAN CORPUSCULAR HGB CONC 32.8 g/dL (32.0-36.0); MEAN CORPUSCULAR VOLUME 91.9 fL (81.0-99.0); MEAN PLATELET VOLUME 8.8 fL (7.9-10.8); NEUTROPHILS % (AUTO) 60.4 %; PLT - PLATELET COUNT 395 10^3/uL (130-450); RED BLOOD COUNT 3.35 10^6/uL (4.20-5.40); RED CELL DISTRIBUTION WIDTH 13.1 % (12.0-15.0); WHITE BLOOD COUNT 8.3 x10^3/uL (4.8-10.8)
[2021-11-04 06:19] LABS: ABNORMAL LYMPHS % (MANUAL) 0 %
[2021-11-04 06:27] LABS: CREATININE 0.8 mg/dL (0.4-1.0); POTASSIUM 4.6 mmol/L (3.5-5.0)
[2021-11-04 06:30] LABS: BAND NEUTROPHILS % (MANUAL) 1 %; EOSINOPHILS # (MANUAL) 0.2 10^3/uL (0-0.7); LYMPHOCYTES # (MANUAL) 1.7 10^3/uL (1.5-3.5); LYMPHOCYTES % (MANUAL) 20 %; MONOCYTES # (MANUAL) 0.6 10^3/uL (0.0-1.0); MYELOCYTES % (MANUAL) 2 %; NEUTROPHILS # (MANUAL) 5.7 10^3/uL (1.5-6.6); PLATELET ESTIMATE, MANUAL NORMAL (130-450,000) (NORMAL); PLATELET MORPHOLOGY NORMAL APPEARANCE (NORMAL); RBC MORPHOLOGY (MULTIPLE) NORMAL APPEARANCE (NORMAL); WBC MORPHOLOGY (MULTIPLE) NORMAL APPEARANCE (NORMAL)
[2021-11-04 06:31] LABS: DIFFERENTIAL COMMENT MANUAL DIFFERENTIAL
[2021-11-04] MEDS: BUDESONIDE 0.5 MG/2 ML NEB INH SCH ×2 (07:56→07:59)
[2021-11-04] MEDS ORDERED: ASCORBIC ACID 500 MG TABLET PO SCH (09:00)
[2021-11-04] MEDS ORDERED: INSULIN GLARGINE 300 UNIT/3 ML PEN SUBQ SCH (09:00)
[2021-11-04] MEDS: INSULIN ASPART 300 UNIT/3 ML PEN SUBQ SCH ×6 (09:19→17:03)
[2021-11-04] MEDS: MORPHINE SULFATE ER 30 MG TABLET PO SCH ×2 (09:20→17:03)
[2021-11-04] MEDS: levoFLOXacin 250 MG TABLET PO SCH (09:21)
[2021-11-04] MEDS: CHOLECALCIFEROL 25 MCG TABLET PO SCH (09:22)
[2021-11-04] MEDS: FUROSEMIDE 20 MG TABLET PO SCH (09:22)
[2021-11-04] MEDS: guaiFENesin 600 MG TABLET PO SCH (09:22)
[2021-11-04] MEDS: lisinopriL 20 MG TABLET PO SCH (09:23)
[2021-11-04] MEDS: CYANOCOBALAMIN 500 MCG TABLET PO SCH (09:24)
[2021-11-04] MEDS: ENOXAPARIN 40 MG/0.4 ML SYRINGE SUBQ SCH (09:25)
[2021-11-04] MEDS: SODIUM CHLORIDE FLUSH 0.9% 10 ML SYRINGE IVP SCH ×2 (09:26→16:57)
[2021-11-04] MEDS: polyethylene glycoL 3350 17 GM PACKET PO SCH (09:31)
[2021-11-04] MEDS: ACITRETIN 25 MG PO SCH (10:37)
[2021-11-04] MEDS: CYCLOSPORINE MODIFIED 100 MG PO SCH (10:38)
[2021-11-04] MEDS ORDERED: INSULIN ASPART 300 UNIT/3 ML PEN SUBQ ONE (12:03)
[2021-11-04] MEDS: CALCIUM CARBONATE CHEW 500 MG TABLET PO SCH (12:05)
--- NOTE | 2021-11-04 12:30 | Discharge Plan ---
Discharge Plan Problem Reviewed?: Yes Disposition: Home, Self Care Condition: Stable Prescriptions: Albuterol Sulf [Ventolin Hfa Inhaler] 1 puffs INH Q4HR PRN #1 inhaler PRN Reason: Shortness Of Air/Wheezing Ipratropium [Atrovent] 1 puffs INH Q6H #12.9 gm levoFLOXacin [Levaquin] 750 mg PO DAILY #10 tablet Pantoprazole [Protonix] 40 mg PO DAILY #30 tablet Calcium Carbonate [Tums (Calcium Carbonate 500mg)] 500 mg PO 1200,2100 #60 tablet Cyanocobalamin [Vitamin B-12] 1,000 mcg PO DAILY #30 tablet Diet: Diabetic Activity Restrictions: Activity as Tolerated Shower Restrictions: No (fall precaution) Instruction Topics: ED Bacteremia Rule Out, UTI, Levofloxacin tablets, Bleeding Gastrointestinal, Oxygen Home Use, Albuterol inhalation aerosol, Ipratropium aerosol inhaler, Pantoprazole tablets Health Concerns: bacteremia, GI bleed, COPD/home oxygen Plan of Treatment: You are prescribed antibiotics to treat your bacteremia, and antibiotic Levaquin is prescribed for you to finish the treatment course. You were found to have GI bleed, however your HGB is stable. Consulted with GI surgeon, you may followup with GI to have EGD/colonoscopy as out-pt. Protonix is prescribed for you. You may followup with your PCP to have HGB monitor in one week. You are prescribed Vitamin B12 for your vitamin B12 Deficiency anemia. You have O2 desat study in the hospital. You were found to need home O2 for your COPD, 2LPM of O2 at rest, and 4LPM of O2 at exertion. Please followup RT instruction for you safely to use O2 at home. You are also prescribed inhalers for your COPD. Strongly advise you quit cigarette smoking. Care Goals: Stabilization and improvement of your medical conditions Assessment: Discussed the care plan in detail with you, answered your questions, you understood Additional Instructions or Follow Up instructions: You may follow-up with your PCP in 1 week, follow-up GI to have EGD or colonoscopy as outpatient, and Follow-up with whiting can worker for your COPD management. Should your symptoms return or worsen, you may present to ER or call 911 for help Follow-Up Care: [facility] - Pulmonary, [facility] - Diabetes Ed No Smoking: If you smoke, Please STOP! Call for help. Follow-up with: Yaw Gerard MD [Primary Care Provider] -
--- NOTE | 2021-11-04 13:41 | DISCHARGE SUMMARY ---
Discharge Summary Admit Date: 10/29/21 Discharge Date: 11/04/21 Discharging Provider: René Jaramillo Primary Care Provider: Dr. Yaw Gerard Condition at Discharge: Stable Discharge Disposition: 01 Home, Self Care Discharge Facility Name: home - DIAGNOSES Discharge Diagnoses with Status of Each Condition: (1) Hypoxia improved significantly. pt had 98% on 2 liter of O2. it is likely caused by pt's COPD. pt is prescribed albuterol and ipratropium bromide inhaler. pt may followup with Statement Clerks Supervisor as outpatient, strongly advised patient quit smoking. pt has no respiratory distress without O2 by SC when she was eating her lunch.CXR reveal improved. (2)COPD pt Has history of COPD, patient is still at smoking cigarette. Patient had oxygen desaturation study in the hospital. Patient was hypoxia on room air at rest with oxygen saturation 84%. At rest on 2 LPM of O2 by nasal cannula, patient's oxygen saturation was 90%. On 2 LPM of oxygen with exertion, patient's oxygen saturation was 87%, On 4 LPM of O2 with exertion, patient's oxygen saturation was 93%. I am ordering 2 LPM oxygen at rest and 4 LPM oxygen on exertion for patient's COPD treatment. (3) Pyelonephritis Impression: resolved. pt has no more fever, WBC is at normal arrange. repeat blood culture is negative. Patient has no nausea or vomiting, patient tolerated regular diet. This was a cause of her sepsis. She is prescribed Levaquin for the Klebsiella bacteremia infection for total of 2 weeks of therapy. (4) Bacteremia due to Klebsiella pneumoniae Impression: Repeat blood culture was negative. pt's symptoms was resolved. pt has no more fever, and WBC is at normal range. Echocardiogram was concerning for potential vegetation calcification but given the gram-negative bacteremia, the suspicion of endocarditis is extremely low. Called ID, she agreed to have pt total 2 weeks antibiotics. (5) Psoriasis palmaris stable, resume pt's home meds (6) Insulin dependent diabetes mellitus A1C is 6.9, resume home meds (7) Chronic pain Stable. continuing her home pain medications. (8) Metabolic encephalopathy resolved, it was most likely secondary to sepsis. (9) Sepsis This was secondary to pyelonephritis and bacteremia. This was resolved. - HPI History of Present Illness: refer from Dr. Corcoran's HPI on 10/29/21 61-year-old female who states that she has been having some problems breathing over the last couple of days, and she has been having increasing left upper quadrant abdominal ache. The patient is a diabetic. Difficult historian because of disorientation, psychomotor slowing. At her baseline she is described as alert and oriented. EMS was called to pick her up at home because of confusion and her complaints. She received an IV bolus at the scene and was noted to be hypoxic. Not much more history is obtained because of her confusion. She was evaluated by Dr. Peterson who found her to be 37.6 temp. Heart rate 108. Blood pressure 126/67. Respirations 21 and 87% on room air. To maintain O2 sats, she needs anywhere between 2 to 5 L nasal cannula. She desaturates when she falls asleep. She has mild left upper quadrant and left mid abdominal pain. Otherwise normal exam except for the psychomotor slowing. Sodium was 133, potassium 3. BUN 37, creatinine 1.2. Her baseline creatinine is 0.9-1.0. White cell count is elevated 11.7 thousand. Baseline for her is 6-7000. Urinalysis had proteinuria, glucosuria, ketonuria, moderate occult blood, ni trites, leukocyte Estrace, white cells, bacteria and granular casts. Talk screen was positive for opiates, and a small amount of ketones. Because of the abdominal pain a CT of the abdomen and pelvis was done. She has mild hepatic steatosis. Spleen is normal. Hyperdense sludge seen in the depend ent portion of the gallbladder. But no acute inflammatory changes. She has a thickened left adrenal gland with a suggestion of an adrenal nodule. Right kidney is normal. Left kidney is slightly enlarged compared to the right with ill-defined areas of hypoenhancement involving upper to middle left kidney. No obstructing stone or hydronephrosis. Multiple nonobstructing left renal calculi are noted. Mild left perinephric stranding is also seen. This is compatible with pyelonephritis on that left kidney. Bowel is normal. Left basilar small infiltrate or atelectasis. Cardiomegaly and moderate atherosclerotic disease are noted. Assess the patient is now admitted for pyelonephritis with altered mental status. - ALLERGIES Allergies/Adverse Reactions: Allergies Allergy/AdvReac Type Severity Reaction Status Date / Time methadone [Methadone] Allergy Severe increased Verified 10/28/21 21:46 heart rate adhesive tape Allergy Unknown Verified 10/28/21 21:46 - MEDICATIONS Home Medications: Ambulatory Orders Medication Instructions Recorded Confirmed Insulin Aspart [Novolog Penfill] 18 - 26 units SQ AC PRN 07/24/13 10/30/21 Lisinopril 10 mg PO DAILY 07/24/13 10/29/21 [place]-3 Fatty Acids/Fish Oil [Fish 1 each PO TID 07/24/13 10/30/21 Oil 1,000 mg Capsule] gemfibroziL [Gemfibrozil] 600 mg PO BID 07/24/13 10/29/21 Insulin Glargine [Lantus Solostar] 60 units SQ DAILY 02/24/17 10/30/21 Ascorbic Acid [Vitamin C] 1,000 mg PO TID 04/27/18 10/29/21 Cholecalciferol (Vitamin D3) 1,000 units PO DAILY 04/27/18 10/29/21 [Vitamin D3] L-Lysine 500 mg PO BID 04/27/18 10/30/21 Magnesium Oxide [Magnesium] 500 mg PO DAILY 04/27/18 10/30/21 Metformin HCl [Glucophage] 1,000 mg PO BID 04/27/18 10/30/21 Morphine Sulfate [Ms Contin] 60 mg PO TID 04/27/18 10/29/21 Tumeric 1,000 mg PO DAILY 04/27/18 10/30/21 Vitamin E (Dl,Tocopheryl Acet) 400 units PO DAILY 04/27/18 10/30/21 [Vitamin E] Hydrocodone/Acetaminophen 1 each PO TID PRN 07/27/18 10/29/21 [Hydrocodone-Acetamin 10-325 mg] Acitretin [Soriatane] 25 mg PO DAILY 11/20/18 10/29/21 Ferrous Sulfate 325 mg PO DAILY #30 tablet 03/13/20 10/29/21 Gabapentin 100 mg PO QPM #30 capsule 03/13/20 10/29/21 Cyclosporine, Modified 100 mg PO BID 10/29/21 10/29/21 [Cyclosporine Modified] Acitretin [Soriatane] 25 mg PO DAILY 11/04/21 Albuterol Sulf [Ventolin Hfa 1 puffs INH Q4HR PRN #1 inhaler 11/04/21 Inhaler] Calcium Carbonate [Tums (Calcium 500 mg PO 1200,2100 #60 tablet 11/04/21 Carbonate 500mg)] Cyanocobalamin [Vitamin B-12] 1,000 mcg PO DAILY #30 tablet 11/04/21 Ipratropium [Atrovent] 1 puffs INH Q6H #12.9 gm 11/04/21 Pantoprazole [Protonix] 40 mg PO DAILY #30 tablet 11/04/21 levoFLOXacin [Levaquin] 750 mg PO DAILY #10 tablet 11/04/21 - PHYSICAL EXAM AT DISCHARGE General Appearance: positive: No acute distress, Alert. negative: Lethargic Eyes Bilateral: positive: Normal inspection, No lid inflammation ENT: positive: ENT inspection nml, No signs of dehydration. negative: Purulent nasal drainage Neck: positive: Nml inspection, Trachea midline. negative: Tracheal deviation Respiratory: positive: Chest non-tender, No respiratory distress. negative: Wheezes Cardiovascular: positive: Regular rate & rhythm. negative: Tachycardia, Bradycardia, Systolic murmur Peripheral Pulses: positive: 2+ Abdomen: positive: Non-tender, Nml bowel sounds Back: positive: Nml inspection Skin: positive: Warm, Dry. negative: Cyanosis Extremities: positive: Non-tender, Full ROM, Nml appearance Neurologic/Psychiatric: positive: Oriented x3, Motor nml, Sensation nml. negative: Weakness, Sensory loss, Facial droop, Slurred/abnml speech, Depressed mood/affect - LABS Result Diagrams: 11/04/21 06:07 11/04/21 06:07 - SEPSIS Current Stage of Sepsis: Sepsis Possible source of Sepsis: Genitourinary Sepsis Criteria: Recorded Temperature greater than 38.3C or Less than 36C, Recorded Heart Rate greater than 90 bpm, Respiratory: Increasing oxygen requirements, SIEVE MAKER: altered consciousness (unrelated to primary neuro pathology) - FOLLOW UP Follow Up: You are prescribed antibiotics to treat your bacteremia, and antibiotic Levaquin is prescribed for you to finish the treatment course. You were found to have GI bleed, however your HGB is stable. Consulted with GI surgeon, you may followup with GI to have EGD/colonoscopy as out-pt. Protonix is prescribed for you. You may followup with your PCP to have HGB monitor in one week. You are prescribed Vitamin B12 for your vitamin B12 Deficiency anemia. You have O2 desat study in the hospital. You were found to need home O2 for your COPD, 2LPM of O2 at rest, and 4LPM of O2 at exertion. Please followup RT instruction for you safely to use O2 at home. You are also prescribed inhalers for your COPD. Strongly advise you quit cigarette smoking. You may follow-up with your PCP in 1 week, follow-up GI to have EGD or colon oscopy as outpatient, and Follow-up with indirect fire infantryman for your COPD management. Should your symptoms return or worsen, you may present to ER or call 911 for help - TIME SPENT Time Spent in Discharge (Minutes): 30
[2021-11-04 15:42] VITALS: BP 100/53
[2021-11-04] MEDS: FERROUS SULFATE 325 MG TABLET PO SCH (17:03)
[2021-11-05] MEDS ORDERED: PANTOPRAZOLE 40 MG TABLET PO SCH (09:00)
== END 2021-11-04 19:15 | disposition home or self-care (01) | DRG 871 ==
LOC: EDUNIT# → SUPCPDRO 21:28 → ED 21:28 → MS2 10-29 00:33
PROVIDERS: ADMIT Specialist; ATTEND Nurse Practitioner Gerontology
DX: A41.9 Sepsis, unspecified organism (principal); A41.59 Other Gram-negative sepsis; R65.20 Severe sepsis without septic shock; G93.41 Metabolic encephalopathy; Z20.822 Contact with and (suspected) exposure to COVID-19; N12 Tubulo-interstitial nephritis, not specified as acute or chronic; E87.1 Hypo-osmolality and hyponatremia; N17.9 Acute kidney failure, unspecified; K92.1 Melena; J81.1 Chronic pulmonary edema; E86.0 Dehydration; J44.9 Chronic obstructive pulmonary disease, unspecified; E11.65 Type 2 diabetes mellitus with hyperglycemia; Z79.4 Long term (current) use of insulin; T38.3X6A Underdosing of insulin and oral hypoglycemic [antidiabetic] drugs, initial encounter; Z91.128 Patient's intentional underdosing of medication regimen for other reason; I10 Essential (primary) hypertension; R09.02 Hypoxemia; D51.9 Vitamin B12 deficiency anemia, unspecified; F17.210 Nicotine dependence, cigarettes, uncomplicated; L40.8 Other psoriasis; Z79.84 Long term (current) use of oral hypoglycemic drugs; R41.82 Altered mental status, unspecified; I87.8 Other specified disorders of veins; G89.4 Chronic pain syndrome
CPT/HCPCS: 36415; 71045; 74177; 80048; 80053; 80306; 81001; 82009; 82274; 82607; 82728; 83036; 83540; 83605; 83615; 83690; 83880; 84439; 84443; 84466; 85025; 85045; 87040; 87077; 87086; 87150; 87181; 87631; 93306; 94640; 94664; 94761; 96365; 97161; 99285; A9270; G0480; J1650; J1815; J7120; J7626; Q9967; 0202U; 80320; 81003; 82803

== ENCOUNTER 2022-02-08 19:17 | Emergency (ER) | payer MEDICAID, MEDICARE ==
[2022-02-08 19:57] LABS: BASOPHILS # (AUTO) 0.1 10^3/uL (0.0-0.1); BASOPHILS % (AUTO) 0.7 %; EOSINOPHILS # (AUTO) 0.1 10^3/uL (0.0-0.7); HCT - HEMATOCRIT 35.4 % (37.0-47.0); HGB - HEMOGLOBIN 12.3 g/dL (12.0-16.0); LYMPHOCYTES # (AUTO) 2.2 10^3/uL (1.5-3.5); LYMPHOCYTES % (AUTO) 31.1 %; MEAN CORPUSCULAR HEMOGLOBIN 30.1 pg (27.0-31.0); MEAN CORPUSCULAR HGB CONC 34.7 g/dL (32.0-36.0); MEAN CORPUSCULAR VOLUME 86.6 fL (81.0-99.0); MEAN PLATELET VOLUME 9.5 fL (7.9-10.8); MONOCYTES # (AUTO) 0.5 10^3/uL (0.0-1.0); MONOCYTES % (AUTO) 6.9 %; NEUTROPHILS # (AUTO) 4.2 10^3/uL (1.5-6.6); PLT - PLATELET COUNT 297 10^3/uL (130-450); RED BLOOD COUNT 4.09 10^6/uL (4.20-5.40); RED CELL DISTRIBUTION WIDTH 12.4 % (12.0-15.0)
[2022-02-08 20:15] LABS: BILIRUBIN,TOTAL 0.6 mg/dL (0.2-1.0); CALCIUM 9.7 mg/dL (8.5-10.3); CREATININE 0.7 mg/dL (0.4-1.0); CRP - C-REACTIVE PROTEIN 2.4 mg/dL (0-1.0); POTASSIUM 4.6 mmol/L (3.5-5.0); TOTAL PROTEIN 8.2 g/dL (6.7-8.2)
[2022-02-08 20:18] LABS: BILIRUBIN,URINE NEGATIVE (NEGATIVE); GLUCOSE, URINE (UA) 250 mg/dL (NEGATIVE); KETONES,URINE (UA) 15 mg/dL (NEGATIVE); LEUKOCYTE ESTERASE, URINE TRACE (NEGATIVE); NITRITE,URINE NEGATIVE (NEGATIVE); OCCULT BLOOD,URINE TRACE-INTA (NEGATIVE); PROTEIN,URINE TRACE mg/dL (NEGATIVE); UROBILINOGEN,URINE 0.2 (NORMAL) E.U./dL (NORMAL)
[2022-02-08 20:20] LABS: CLARITY,URINE HAZY (CLEAR)
--- NOTE | 2022-02-08 20:30 | ED Physician Documentation ---
History of Present Illness - Stated complaint Stated Complaint: right eye & elbow swelling,soa - Chief complaint Chief Complaint: General - Additonal information Additional information: 61-year-old female comes to the ER with a variety of concerns. Most notably it is that most of her joints and all of her muscles ache. She is a very poor historian. She frequently refers to a handwritten diary which has a number of dates and messages written in it. Patient states that she abruptly went into morphine withdrawal on 22 January because her medications were not refilled. She was finally able to get them refilled yesterday. However she does not want to be on morphine long-term so she only took the hydrocodone. She does not have any fevers but feels that her elbow and her eye are swollen. This is a subjective finding only. She denies any fevers. She is endorsing some anorexia but no weight loss. No nausea vomiting or diarrhea Review of Systems Constitutional: reports: Myalgias, Fatigue. denies: Fever Nose: reports: Reviewed and negative Throat: reports: Reviewed and negative Cardiac: reports: Reviewed and negative GI: reports: Other (Anorexia) : reports: Reviewed and negative Skin: reports: Reviewed and negative Musculoskeletal: reports: Extremity pain, Joint pain PD PAST MEDICAL HISTORY - Past Medical History Past Medical History: Yes Cardiovascular: High cholesterol, Peripheral Vascular Disease, Other Respiratory: Asthma, COPD, Emphysema Neuro: Peripheral neuropathy Endocrine/Autoimmune: Type 2 diabetes GI: None CERTIFICATION AND SELECTION SPECIALIST: None : None HEENT: None Psych: Depression, Anxiety Musculoskeletal: Osteoarthritis, Scoliosis, Chronic back pain Derm: Psoriasis - Past Surgical History Past Surgical History: Yes Ortho: 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 surgery /CERTIFICATION AND SELECTION SPECIALIST: Hysterectomy, Oophrectomy - Present Medications Home Medications: Ambulatory Orders Medication Instructions Recorded Confirmed Insulin Aspart [Novolog Penfill] 18 - 26 units SQ AC PRN 07/24/13 10/30/21 Lisinopril 10 mg PO DAILY 07/24/13 10/29/21 [place]-3 Fatty Acids/Fish Oil [Fish 1 each PO TID 07/24/13 10/30/21 Oil 1,000 mg Capsule] gemfibroziL [Gemfibrozil] 600 mg PO BID 07/24/13 10/29/21 Insulin Glargine [Lantus Solostar] 60 units SQ DAILY 02/24/17 10/30/21 Ascorbic Acid [Vitamin C] 1,000 mg PO TID 04/27/18 10/29/21 Cholecalciferol (Vitamin D3) 1,000 units PO DAILY 04/27/18 10/29/21 [Vitamin D3] L-Lysine 500 mg PO BID 04/27/18 10/30/21 Magnesium Oxide [Magnesium] 500 mg PO DAILY 04/27/18 10/30/21 Metformin HCl [Glucophage] 1,000 mg PO BID 04/27/18 10/30/21 Morphine Sulfate [Ms Contin] 60 mg PO TID 04/27/18 10/29/21 Tumeric 1,000 mg PO DAILY 04/27/18 10/30/21 Vitamin E (Dl,Tocopheryl Acet) 400 units PO DAILY 04/27/18 10/30/21 [Vitamin E] Hydrocodone/Acetaminophen 1 each PO TID PRN 07/27/18 10/29/21 [Hydrocodone-Acetamin 10-325 mg] Acitretin [Soriatane] 25 mg PO DAILY 11/20/18 10/29/21 Ferrous Sulfate 325 mg PO DAILY #30 tablet 03/13/20 10/29/21 Gabapentin 100 mg PO QPM #30 capsule 03/13/20 10/29/21 Cyclosporine, Modified 100 mg PO BID 10/29/21 10/29/21 [Cyclosporine Modified] Acitretin [Soriatane] 25 mg PO DAILY 11/04/21 Albuterol Sulf [Ventolin Hfa 1 puffs INH Q4HR PRN #1 inhaler 11/04/21 Inhaler] Calcium Carbonate [Tums (Calcium 500 mg PO 1200,2100 #60 tablet 11/04/21 Carbonate 500mg)] Cyanocobalamin [Vitamin B-12] 1,000 mcg PO DAILY #30 tablet 11/04/21 Ipratropium [Atrovent] 1 puffs INH Q6H #12.9 gm 11/04/21 Pantoprazole [Protonix] 40 mg PO DAILY #30 tablet 11/04/21 levoFLOXacin [Levaquin] 750 mg PO DAILY #10 tablet 11/04/21 - Allergies Allergies/Adverse Reactions: Allergies Allergy/AdvReac Type Severity Reaction Status Date / Time methadone [Methadone] Allergy Severe increased Verified 02/08/22 19:22 heart rate adhesive tape Allergy Unknown Verified 02/08/22 19:22 - Social History Does the pt smoke?: Yes Smoking Status: Current every day smoker Does the pt drink ETOH?: No Does the pt have substance abuse?: No - Immunizations Immunizations are current?: Yes Immunizations: TDAP current <10years - POLST Patient has POLST: No POLST Status: Full Code PD ED PE NORMAL - General General: Alert and oriented X 3, No acute distress, Other (Obese) - HEENT HEENT: Moist mucous membranes - Neck Neck: Supple, no meningeal sign, No adenopathy - Cardiac Cardiac: RRR, No murmur - Respiratory Respiratory: No respiratory distress. No: Other (Faint scattered expiratory wheeze. No tachypnea accessory muscle use. Room air saturations 98%) - Abdomen Abdomen: Normal bowel sounds, Soft, Non tender - Back Back: No CVA TTP, No spinal TTP - Derm Derm: Normal color, Warm and dry, No rash - Extremities Extremities: No deformity, No tenderness to palpate - Neuro Neuro: Alert and oriented X 3, procedural nurse 2-12 intact Eye Opening: Spontaneous Motor: Obeys Commands Verbal: Oriented GCS Score: 15 Results - Vitals Vitals: Vital Signs - 24 hr 02/08/22 19:22 Temperature 36.5 C Heart Rate 100 Respiratory 18 Rate Blood Pressure 129/62 O2 Saturation 98 Oxygen O2 Source Room air - Labs Labs: Laboratory Tests 02/08/22 02/08/22 02/08/22 19:52 19:52 20:07 WBC 7.0 RBC 4.09 L Hgb 12.3 Hct 35.4 L MCV 86.6 MCH 30.1 MCHC 34.7 RDW 12.4 Plt Count 297 MPV 9.5 Neut # (Auto) 4.2 Lymph # (Auto) 2.2 [place] # (Auto) 0.5 Eos # (Auto) 0.1 Baso # (Auto) 0.1 Absolute Nucleated RBC 0.00 Nucleated RBC % 0.0 Sodium 137 Potassium 4.6 Chloride 101 Carbon Dioxide 23 Anion Gap 13.0 BUN 29 H Creatinine 0.7 Estimated GFR (MDRD) 85 L Glucose 246 H Calcium 9.7 Total Bilirubin 0.6 AST 14 ALT 13 Alkaline Phosphatase 74 C-Reactive Protein 2.4 H Total Protein 8.2 Albumin 4.0 Globulin 4.2 Albumin/Globulin Ratio 1.0 Lipase 39 Urine Color YELLOW Urine Clarity HAZY Urine pH 5.0 Ur Specific Leonore >=1.030 H Urine Protein TRACE Urine Glucose (UA) 250 H Urine Ketones 15 H Urine Occult Blood TRACE-INTA Urine Nitrite NEGATIVE Urine Bilirubin NEGATIVE Urine Urobilinogen 0.2 (NORMAL) Ur Leukocyte Esterase TRACE H Urine RBC 0-5 Urine WBC >25 H Ur Squamous Epith Cells MOD Squamous H Urine Bacteria Few Ur Microscopic Review INDICATED Urine Culture Comments NOT INDICATED PD MEDICAL DECISION MAKING - ED course Complexity details: considered differential, d/w patient ED course: 61-year-old female presents emergency department with a predominant complaint that everything hurts especially her muscles and her joints. She was abruptly discontinued from her morphine about 2 weeks ago. Since then she has had worsening and persistent pain especially in her legs and back. The morphine was prescribed for chronic back pain. She was able to get the medications refilled yesterday and today she took a solitary Vicodin. She states that it really has not improved her pain and she is hesitant to resume taking the morphine however. Screening labs are obtained today. No leukocytosis. Do note a mild CRP elevation of 2.4. She was hospitalized in October for septicemia as well as a urinary tract infection. Her urine today suggest infection but patient is asymptomatic and would prefer to wait for culture results before starting antibiotics. No acute emergent need is identified today in the emergency department though patient has chronic comorbid conditions that seemingly are difficult to manage in the long-term. She is scheduled to see Dr. Gerard tomorrow in follow-up. I have encouraged her to discuss longer-term pain management with him. Departure - Departure Disposition: Home, Self Care Clinical Impression: Chronic pain disorder Condition: Stable Record reviewed to determine appropriate education?: Yes Follow-Up: Yaw Gerard MD [Primary Care Provider] - Comments: Silva bolden are seen today in the emergency department mostly because you have worsening pain in your legs and joints. Your morphine was abruptly discontinued about 2 weeks ago. I am sorry that that happened to you. Unfortunately when this occurs it can worsen chronic pain as well as make you aware of new pains that you were previously aware of. Your screening labs today did not show any worrisome findings. Please continue to see Dr. Gerard tomorrow as already scheduled. In the long-term further discussion about how to manage her chronic pain is going to be very important. I think it is important that you remain off the morphine if you can however the best way to manage your pain moving forward should be discussed with your primary doctor.
[2022-02-08 20:33] LABS: BACTERIA,URINE Few /HPF (None Seen); RBC,URINE 0-5 /HPF (0-5); SQUAMOUS EPITHELIAL CELL,UR MOD Squamous (<= Few); WBC,URINE >25 /HPF (0-5)
[2022-02-08 21:28] VITALS: BP 126/70
== END 2022-02-08 21:28 | disposition home or self-care (01) ==
LOC: ED 19:17
DX: G89.29 Other chronic pain (principal); E11.9 Type 2 diabetes mellitus without complications; Z79.4 Long term (current) use of insulin; F17.200 Nicotine dependence, unspecified, uncomplicated
CPT/HCPCS: 36415; 80053; 81001; 81003; 83690; 85025; 86140; 87086; 99283

== ENCOUNTER 2022-11-10 14:18 | Outpatient (CLI) | payer MEDICARE ==
--- NOTE | 2022-11-11 11:27 | Mammography Report ---
BILATERAL DIGITAL SCREENING MAMMOGRAM 3D/2D: 11/10/2022 CLINICAL: Routine screening. Comparison is made to exams dated: 07/15/2016 mammogram, 12/09/2010 mammogram, and 09/04/2008 mammogram - [facility]. There are scattered areas of fibroglandular density in both breasts (category b / 25%-50% glandular t issue). There are benign calcifications in the right breast. There also are biopsy clips in the right breast . No significant masses, calcifications, or other findings are seen in either breast. There has been no significant interval change. IMPRESSION: BENIGN There is no mammographic evidence of malignancy. A 1 year screening mammogram is recommended. Based on the Tyrer Cuzick model (a risk assessment model) the patients lifetime risk is 4.2% and her 10 year risk is 1.9%. According to the ACR, ACS, and NCCN guidelines, an annual breast MRI exam nhi g with mammogram is recommended if the patients lifetime risk is 20% or greater. This exam was interpreted at Station ID: [id number]. NOTE: For mammograms, a report in lay terms will be sent to the patient. Approximately 15% of breast malignancies will not be visualized mammographically. In the management of a palpable breast mass, a negative mammogram must not discourage biopsy of a clinically suspicious lesion. Electronically Signed By: Chintan [email or web address]/[email or web address]:11/10/2022 17:16:14 ACR BI-RADS Category 2: Benign Finding(s) 3342F PARENCHYMAL PATTERN: (A) - The breast(s) demonstrate(s) scattered fibroglandular densities. BI-RADS CATEGORY: (2) - 2 RECOMMENDATION: (ANNUAL) - Recommend routine annual screening mammography. [id number] 1 year screening LATERALITY: (B)
== END 2022-11-10 14:19 | disposition home or self-care (01) ==
LOC: DI 14:18
PROVIDERS: ATTEND Internal Medicine
DX: Z12.31 Encounter for screening mammogram for malignant neoplasm of breast (principal)